=== PATIENT | male | born 1985 | race African-American/Black ===

== ENCOUNTER 2022-12-10 02:53 | Outpatient (CLI) | payer SELFPAY | END 2022-12-10 02:54 | disposition home or self-care (01) | PROVIDERS: Visit Provider Internal Medicine | DX: R41.82 Altered mental status, unspecified (principal) ==

== ENCOUNTER 2023-09-10 02:09 | Outpatient (CLI) | payer OTHER, SELFPAY | END 2023-09-10 02:10 | disposition home or self-care (01) | LOC: AMB 09-22 02:14 | PROVIDERS: Visit Provider Family Medicine | DX: S01.512A Laceration without foreign body of oral cavity, initial encounter (principal); W19.XXXA Unspecified fall, initial encounter; Y92.9 Unspecified place or not applicable | CPT/HCPCS: A0425; A0429 ==

== ENCOUNTER 2023-09-10 02:25 | Emergency (ER) | payer OTHER, SELFPAY ==
[2023-09-10 02:27] VITALS: BP 119/77; PULSE 89; RESP 20; TEMP 36.7; O2SAT 99; BMI 22.5
--- NOTE | 2023-09-10 02:43 | ED_ITS ---
HPI - Wound/Laceration General Time Seen by Provider: 02:43 Date Seen: 09/10/23 Chief Complaint: Laceration/Wound Stated Complaint: fall, tongue lac Time Seen by Provider: 09/10/23 02:26 Source: patient and RN notes reviewed Mode of arrival: EMS Limitations: no limitations History of Present Illness HPI narrative: Patient is noted to have arrived by EMS with complaints of a tongue laceration. Patient was noted according to EMS to have fallen down while visiting his brother at [facility]. He is from [place]. He notes when he fell he bit his tongue. They are describing a large flap laceration on the left side of his tongue. They did not note any airway compromise. He has not had any vomiting. Denies loss of consciousness. When I meet patient he is obviously intoxicated and is preferring to show me his to tongue which is lacerated on the middle aspect on the left. We are having some challenges with communication given that he is predominantly a Somalian language speaker. He is following commands however. He is adamant that this just occurred this evening. He denies any other pain at this time. Really does not want anything else done except repair of his tongue. Related Data Home Medications Medication Instructions Recorded Confirmed No Known Home Medications 09/10/23 09/10/23 Allergies Allergy/AdvReac Type Severity Reaction Status Date / Time No Known Drug Allergies Allergy Verified 09/10/23 02:30 Review of Systems Status of ROS: Reports: unobtainable due to mental status Narrative: Any questions that I ask he seems very frustrated and just sticks his tongue out at me to show me the laceration. He eventually denies neck pain or head pain and moves his head around without difficulty. Unable to tell me how much she has had tonight except for ?a little beer and ?. Denies any medical problems. [facility] Medical History No significant past medical history Surgical History No significant past surgical history Social History Smoking Status: Current every day smoker Second hand tobacco smoke exposure: Yes How often do you have a drink containing alcohol: monthly or less AUDIT-C Alcohol total score: 1 Non-prescribed substance use: denies use Exam Narrative: Exam Narrative: Patient is awake and pleasant. Following commands. Airway appears to be clear. Pupils are sluggish to light. Head is with a a small area of possible edema on left forehead. No step-offs palpated palpation of cervical spine without any midline tenderness on range of motion is full. Palpation of jaw as well out discomfort. Oral cavity does show a large flap of the tongue that head is through and through on the left mid tongue. It is measuring approximately 2 cm. Heart with regular rate and rhythm and lungs are clear. Moving all extremities. Prefers to sleep with the sheet over his head. Falls asleep quite easily. Const: Vital Signs, click to edit/add: Vital Signs - 24 hr 09/10/23 02:27 09/10/23 03:00 09/10/23 05:34 Temperature 98.0 F 98.0 F Pulse Rate [Right Pulse Oximeter] 89 84 Respiratory Rate 20 20 Blood Pressure [Ri ght Upper Arm] 119/77 121/74 Pulse Oximetry 99 98 98 Oxygen Delivery Me thod Room Air Room Air Oxygen Flow Rate 09/10/23 06:18 Temperature Pulse Rate [Right Pulse Oximeter] Respiratory Rate Blood Pressure [Ri ght Upper Arm] Pulse Oximetry 99 Oxygen Delivery Me thod Nasal Cannula Oxygen Flow Rate 2 Documenting provider has reviewed patient's vital signs: yes Course Course ED Course: At this time patient is presenting after a fall. Clearly he is intoxicated. He really does not want any further studies done but we were able to get Vincent to do CT of the head and neck. Given the location of the laceration of the tongue and the fact that this wound does not come easily together we will half to suture this area. Patient is in agreement with that. Vital Signs Vital signs: Initial Vital Signs Temperature 98.0 F 09/10/23 02:27 Temperature Source Temporal Artery Scan 09/10/23 02:27 Pulse Rate 89 09/10/23 02:27 Respiratory Rate 20 09/10/23 02:27 Blood Pressure 119/77 09/10/23 02:27 Blood Pressure Mean 91 09/10/23 02:27 Blood Pressure Position Sitting 09/10/23 02:27 Pulse Oximetry 99 09/10/23 02:27 Oxygen Delivery Method Room Air 09/10/23 02:27 Vital Signs Temperature 98.0 F 09/10/23 02:27 Pulse Rate 89 09/10/23 02:27 Respiratory Rate 20 09/10/23 02:27 Blood Pressure 119/77 09/10/23 02:27 Pulse Oximetry 99 09/10/23 02:27 Oxygen Delivery Method Room Air 09/10/23 02:27 Temperature 98.0 F 09/10/23 05:34 Pulse Rate 88 09/10/23 08:49 Respiratory Rate 18 09/10/23 08:49 Blood Pressure 121/74 09/10/23 05:34 Pulse Oximetry 92 09/10/23 08:49 Oxygen Delivery Method Room Air 09/10/23 08:49 Oxygen Flow Rate 2 09/10/23 06:18 Medications Administered Medications: Discontinued Medications Generic Name Dose Route Start Last Admin Trade Name Freq PRN Reason Stop Dose Admin Sodium Chloride 1,000 mls @ 1,000 mls/hr 09/10/23 04:33 09/10/23 06:13 0.9 % Sodium Chloride 1000 Ml IV 09/10/23 05:32 Infused .Q1H TAMICA Infusion Lidocaine HCl 20 ml 09/10/23 02:45 09/10/23 04:00 Lidocaine Hcl 2 % Multidose 20 Ml Vial INJECTION 09/10/23 02:46 20 ml ONCE ONE Administration MDM - Wound/Laceration MDM Narrative Medical decision making narrative: 1. Tongue laceration-patient fell and bit his tongue. He is adamant that it was tonight. It was not bleeding upon initial look and thus I was worried that this may have been older than 24 hours. He again is adamant that this happened this evening. We were able to anesthetize his tongue and 4 sutures were placed of 4- 0 Vicryl with moderate wound approximation. The wound edges were quite may serrated. Patient will need to follow-up with ENT given the severity of this laceration. 2. Alcohol intoxication-ETOH comes back at 2.24. Given the fact that he has an oral injury and is intoxicated I do feel the best he has sleepier in the ER where we can monitor mow overnight. He is in agreement with this. 3. Fall-patient does have soft tissue swelling on his left forehead but fortunately head CT cervical spine CT without evidence of acute injury. 4. Disposition- patient has clip soundly through the night. Did have to apply oxygen as his O2 sats did drop to 85% while sleeping. Otherwise did re-examine him overnight and there is no bleeding from the laceration. Will have patient have breakfast. Advised only soft foods and liquids for at least 3 days. Medical Records Medical records narrative: No records available Lab Data Attestation: I reviewed the patient's lab results. Labs: Lab Results 09/10/23 Range/Units 04:30 WBC 7.23 (4.50-11.00) K/uL RBC 4.57 (4.30-5.90) m/uL Hgb 14.9 (13.5-17.5) gm/dL Hct 44.0 (37.0-53.0) % MCV 96 (80-100) fL MCH 33 (26-34) pg MCHC 34 (32-36) gm/dL RDW Coeff of Lopez 14.1 (11.5-15.5) % Plt Count 148 (140-440) K/uL Neut % (Auto) 62.8 (42.0-72.0) % Lymph % (Auto) 28.2 (20-44) % [place] % (Auto) 6.4 (0.0-11.0) % Eos % (Auto) 2.1 (0.0-7.0) % Baso % (Auto) 0.4 (0.0-3.0) % Neut # (Auto) 4.54 (1.7-7.0) K/uL Lymph # (Auto) 2.04 (0.90-2.90) K/uL [place] # (Auto) 0.50 (0.00-0.90) K/UL Eos # (Auto) 0.15 (0.00-0.50) K/uL Baso # (Auto) 0.03 (0.00-0.30) K/uL Abs Immat Gran (auto) 0.01 (0.00-0.30) K/uL Imm/Tot Granulo (auto) 0.1 % Sodium 138 (135-149) mmol/L Potassium 3.3 L (3.6-5.1) mmol/L Chloride 104 (96-114) mmol/L Carbon Dioxide 23 (20-32) mmol/L Anion Gap 11 (7-15) mEq/L BUN 7 (5-24) mg/dL Creatinine 0.7 (0.5-1.5) mg/dL Estimated Creat Clear 159.07 Estimated GFR 120 ml/min Glucose 112 (60-115) mg/dL Calcium 8.5 (8.4-10.6) mg/dL Magnesium 2.0 (1.5-2.6) mg/dL Ethyl Alcohol 0.25 H (0.01-0.03) % Imaging Data CT scan - head: Attestation: I have reviewed the pertinent imaging results. Radiologist's impression: Cardiovascular and mediastinum: Mildly enlarged cardiac silhouette, possibly accentuated by portable technique. Left-sided cardiac conduction device. Lungs and pleural spaces: Lungs are clear. No sign of infiltrate or mass. No sign of pleural effusion. No pneumothorax. Bones and soft tissues: No significant findings. IMPRESSION: No acute pulmonary process. Cervical spine CT: Attestation: I have reviewed the pertinent imaging results. Radiologist's impression: ertebrae: Alignment is normal. There are no fractures or suspicious bony lesions. Discs and facet joints: Multilevel disc degeneration and C4-C5, C5-C6 and C6-C7 anterior discal ossification at C4-C5 and C5-C6. Mild bilateral multilevel articular pillar osteoarthrosis. Extraspinal findings: Prevertebral soft tissues, visualized airway, and visualized lungs are without significant incidental findings. Biapical pleural-parenchymal fibrosis is noted incidentally. IMPRESSION: No acute traumatic injury is identified. Discharge Plan Discharge Clinical Impression: Laceration Alcohol intoxication Qualifiers: Complication of substance-induced condition: uncomplicated Qualified Code(s): F10.920 - Alcohol use, unspecified with intoxication, uncomplicated Patient Disposition: Home, Self-Care Condition: Improved Additional Instructions: You will need to follow-up with ENT-a special Dr. Devoted to the ears nose and throat. He will need to recheck the tongue to ensure that it is healing well. Soft foods and liquids only for the next 3 days.. Avoid chewing so as to protect your tongue. Seek medical attention for fever, worsening symptoms and as needed. After eating or drinking rinse mouth with water. Prescriptions: No Action No Known Home Medications Follow Up/Referrals: Provider,Not a Local [Primary Care Provider] - Stand Alone Forms: [facility] Info Instructions Procedures Laceration Laceration 1: Pre procedure diagnosis: Tongue laceration Post procedure diagnosis: Tongue laceration suture Verification/time out: correct patient and correct site Name of person performing procedure: Shelby Liz Site: other (Tongue) Side (If applicable): left Size (cm): 2 Description: irregular Depth: simple, single layer Local Anesthetic: lidocaine 2% Amount of anesthesia used (mL): 1.5 Pre-repair: wound explored Skin layer closed with: Vicryl Size (cm): 4-0 Number of sutures: 4 Technique: simple, interrupted Conclusion: patient tolerated procedure
--- NOTE | 2023-09-10 02:54 | CRLHL7_ITS ---
For Patients: As a result of the Cures Act, medical imaging exams and procedure reports are released immediately into your electronic medical record. You may view this report before your referring provider. If you have questions, please contact your health care provider. INDICATION: Fall. TECHNIQUE: CT cervical spine without contrast. COMPARISON: None. FINDINGS: Vertebrae: Alignment is normal. There are no fractures or suspicious bony lesions. Discs and facet joints: Multilevel disc degeneration and C4-C5, C5-C6 and C6-C7 anterior discal ossification at C4-C5 and C5-C6. Mild bilateral multilevel articular pillar osteoarthrosis. Extraspinal findings: Prevertebral soft tissues, visualized airway, and visualized lungs are without significant incidental findings. Biapical pleural-parenchymal fibrosis is noted incidentally. IMPRESSION: No acute traumatic injury is identified. Please note that all CT scans at this facility use dose modulation, iterative reconstruction, and/or weight-based dosing when appropriate to reduce radiation dose to as low as reasonably achievable. Dictated by Antoni Vargas MD @ 09/10/2023 4:09:48 AM (Electronically Signed)
--- NOTE | 2023-09-10 02:54 | CRLHL7_ITS ---
For Patients: As a result of the Century Cures Act, medical imaging exams and procedure reports are released immediately into your electronic medical record. You may view this report before your referring provider. If you have questions, please contact your health care provider. INDICATION: REASON FOR EXAM: FALL, ETOH, BITE TONGUE. (sic) TECHNIQUE: CT head without contrast. COMPARISON: None. FINDINGS: CSF spaces: Within normal limits for age. Brain parenchyma and extra-axial spaces: The rodriguez-white differentiation is normal. No sign of mass, hemorrhage, or midline shift. No extra-axial fluid collection. Skull base and calvarium: The visualized paranasal sinuses and mastoid air cells demonstrate no acute or significant findings. Mild right frontal sinus, including frontal recess, and bilateral maxillary sinus mucosal thickening. The visualized orbits are grossly unremarkable. Focal soft tissue swelling overlying the right frontal calvarium. No skull fracture. IMPRESSION: Right frontal scalp focal soft tissue swelling. No underlying fracture. No intracranial hemorrhage or other acute injury. Please note that all CT scans at this facility use dose modulation, iterative reconstruction, and/or weight-based dosing when appropriate to reduce radiation dose to as low as reasonably achievable. Dictated by Antoni Vargas MD @ 09/10/2023 4:04:09 AM (Electronically Signed)
[2023-09-10 03:00] VITALS: O2SAT 98
--- OUTSIDE RECORDS SUMMARY | 2023-09-10 03:23 | XMS_ITS | Patient Health Record ---
Author Name Unknown Organization [facility] nter Address [address] [place] [address] Care Team Providers Care Adolescent Specialist Name Role Phone Ryan Subramanian Unavailable [phone] Liam Craig Unavailable [phone] ALLERGIES No Known Allergies REASON FOR REFERRAL No Information MEDICATIONS Medication SIG (Take, Route, Fr equency, Duration) Notes Start Date End Date Status Sertraline HCl 50 MG 1 tablet Orally Onc e a day for 30 days 01/19/2023 Active Melatonin 5 MG 1 tablet in the even ing Orally Once a day for 30 days 01/19/2023 Active Sertraline HCl 100 MG 1 tablet Orally On ce a day for 30 days 02/03/2023 Active SOCIAL HISTORY Tobacco Use: Social History Observation Description Date Details (start date - stop date) Current Smoker NA - NA Sex Assigned At : Social History Observation Description Sex Assigned At Unknown Tobacco Use/Smoking Question Answer Notes Tobacco use: current every day smoker Additional Findings: Tobacco User Chain smoker PROBLEMS Problem Type ICD Code Onset Dates Problem Status W/U Status Risk SNOMED Code Notes Problem Alcohol abuse with intoxication, uncomplicated (F10.120) Active confirmed Alcohol intoxication (69980003) VITAL SIGNS Heart Rate 88 /min 02/03/2023 Temperature 99.0 degrees Fahrenheit 02/03/2023 Respiratory Rate 20 /min 02/03/2023 Oximetry 99 % 02/03/2023 Height-cm 187.96 cm 02/03/2023 Blood pressure diastolic 90 mm Hg 02/03/2023 Weight-kg 80.74 kg 02/03/2023 Height 6'2 in 02/03/2023 Blood pressure systolic 137 mm Hg 02/03/2023 Weight 178 lbs 02/03/2023 BMI 22.85 kg/m2 02/03/2023 Encounters Encounter Location Date Provider Diagnosis [address] [address] 03/06/2023 Liam Craig [address] [address] 01/19/2023 Ryan Subramanian Depression determine d by examination F32.A and Insomnia, unspecified type G47.[address] [address] 02/03/2023 Ryanarie Subramanian Severe episode of recurrent major depressive disorder, without psychotic features F33.2 ASSESSMENTS Encounter Date Diagnosis Assessment Notes Treatment Notes Treatment Clinical Notes 01/19/2023 Insomnia, unspecified type (ICD-10 - G47.00) 01/19/2023 Depression determined by examination (ICD-10 - F32.A) 02/03/2023 Severe episode of recurrent major depressive disorder, without psychotic features (ICD-10 - F33.2) Preventing Depression From Coming Back: Care Instructions material was printed, Learning About Depression material was printed PLAN OF TREATMENT No Information Insurance Providers Payer Name Payer Address Payer Phone Subscriber Number Group Number Insured Name Patient Relationship to Insured Coverage Start Date Coverage End Date [employer] [place] [employer] [address] [address] [place], [place] [id number] Dixie Smith Self - patient is the insured MEDICAL (GENERAL) HISTORY Medical History History ICD Code Alcohol abuse with intoxication, uncompl icated F10.120 Trauma insomnia Surgical History Surgery Date(Month/Year) R leg fixation/Fx repair Hospitalization History Reason Date(Month/Year) inpatient psych 2013
[2023-09-10] MEDS: lidocaine HCL 2 % MULTIDOSE 20 ML VIAL INJECTION (04:00)
[2023-09-10] MEDS: 0.9 % SODIUM CHLORIDE 1000 ml 1,000 ML IV (04:46)
[2023-09-10 04:47] LABS: Basophils Absolute Auto 0.03 K/uL (0.00-0.30); Basophils Percent Auto 0.4 % (0.0-3.0); Eosinophils Absolute Auto 0.15 K/uL (0.00-0.50); Eosinophils Percent Auto 2.1 % (0.0-7.0); Hemoglobin* 14.9 gm/dL (13.5-17.5); Immature Granulocytes Abs Auto 0.01 K/uL (0.00-0.30); Immature Granulocytes Pct Auto 0.1 %; Lymphocytes Absolute Auto 2.04 K/uL (0.90-2.90); Lymphocytes Percent Auto 28.2 % (20-44); Mean Corpuscular HGB Conc 34 gm/dL (32-36); Mean Corpuscular Hemoglobin 33 pg (26-34); Mean Corpuscular Volume 96 fL (80-100); Monocytes Percent Auto 6.4 % (0.0-11.0); Neutrophils Absolute Auto 4.54 K/uL (1.7-7.0); Neutrophils Percent Auto 62.8 % (42.0-72.0); Platelet Count* 148 K/uL (140-440); RDW Coefficient of Variation % 14.1 % (11.5-15.5); Red Blood Count 4.57 m/uL (4.30-5.90); White Blood Count* 7.23 K/uL (4.50-11.00)
[2023-09-10 04:48] LABS: Slide Review Reflex No
[2023-09-10 04:59] LABS: Chloride* 104 mmol/L (96-114); Potassium* 3.3 mmol/L (3.6-5.1); Sodium* 138 mmol/L (135-149)
[2023-09-10 05:02] LABS: Anion Gap 11 mEq/L (7-15); Blood Urea Nitrogen* 7 mg/dL (5-24); Carbon Dioxide* 23 mmol/L (20-32); Creatinine* 0.7 mg/dL (0.5-1.5); Est. Creatinine Clearance* 159.07; Estimated Glomerular Filt Rate 120 ml/min; Ethanol* 0.25 % (0.01-0.03)
[2023-09-10 05:03] LABS: Calcium* 8.5 mg/dL (8.4-10.6); Glucose* 112 mg/dL (60-115)
[2023-09-10 05:34] VITALS: BP 121/74; PULSE 84; RESP 20; TEMP 36.7; O2SAT 98
[2023-09-10 06:18] VITALS: O2SAT 99
--- NOTE | 2023-09-10 06:20 | ED.NURSE ---
sutures intact on tongue. no bleeding noted. will continue to monitor. vitals stable.
--- NOTE | 2023-09-10 08:37 | ED.NURSE ---
sitting up in bed, eating soft food breakfast tray
[2023-09-10 08:49] VITALS: PULSE 88; RESP 18; O2SAT 92
--- NOTE | 2023-09-10 08:50 | ED.NURSE ---
home via cab. alert and oriented
== END 2023-09-10 09:06 | disposition home or self-care (01) ==
PROVIDERS: Emergency Provider Family Medicine
DX: S01.512A Laceration without foreign body of oral cavity, initial encounter (principal); W01.0XXA Fall on same level from slipping, tripping and stumbling without subsequent striking against object, initial encounter; F10.129 Alcohol abuse with intoxication, unspecified
CPT/HCPCS: 12011; 36415; 70450; 72125; 80048; 82077; 83735; 85025; 94761; 99284; J7030

== ENCOUNTER 2023-10-06 13:50 | Outpatient (CLI) | payer OTHER, SELFPAY ==
--- OUTSIDE RECORDS SUMMARY | 2023-10-19 17:28 | XMS_ITS | Encounter Summary ---
Author Name Unknown Organization [facility] Address [address] [facility] [place] [address] Phone Care Team Providers Care Maturity Checker Name Role Phone Pcp, No Primary Care Provider Unavailabl e Encounter Details Date Type Department Care Team Description 10/05/2023 Orders Only Unspecified Department [place] Unknown, Provider Social History Tobacco Use Types Packs/Day Years Used Date Smoking Tobacco: Never Assessed Cigarettes 0.5 Started: 1984 Smokeless Tobacco: Current Alcohol Use Standard Drinks/Week Comments Yes 3.3 (1 standard drink = 0.6 oz p ure alcohol) Sex and Gender Information Value Date Recorded Sex Assigned at Not on file Gender Identity Not on file Sexual Orientation Not on file COVID-19 Exposure Response Date Recorded In the last 10 days, have yo u been in contact with someone who was confirmed or suspected to have Coronavirus/COVID-19? No / Unsure 10/04/2023 6:06 AM EPIC STORK SPECIALISTS documented as of this encounter Plan of Treatment Upcoming Encounters Date Type Department Care Team Description 10/26/2023 10:40 AM EPIC STORK SPECIALISTS Office [facility] [address] [place] [address] Fina Shultz MD [address] [place], [place] [address] Hvac Engineer, [facility] [place] Scheduled Discharge Disposition: Discharged to home or self care (routine discharge) 10/31/2023 12:00 PM EPIC STORK SPECIALISTS Appointment [facility] [address] [facility] [address] [place], [place] [id number] 1, Eeg - Outpatient 2, Isd-[place] [address] [place] [address] Scheduled Discharge Disposition: Discharged to home or self care (routine discharge) documented as of this encounter Procedures Procedure Name Priority Date/Time Associated Diagnosis Comments TELEMETRY STRIPS 10/05/2023 8:44 AM [facility] documented in this encounter Results * TELEMETRY STRIPS (10/05/2023 8:44 AM [facility]ISTS) Narrative 10/05/2023 8:44 AM [facility] Ordered by an unspecified provider. Provider Unknown RAD ECHO documented in this encounter Visit Diagnoses Not on filedocumented in this encounter Care Teams Maturity Checker Relationship Specialty Start Date End Date Pcp, No [facility] [place] [address] PCP - General 08/31/14 documented as of this encounter
--- OUTSIDE RECORDS SUMMARY | 2023-10-19 17:28 | XMS_ITS | Encounter Summary ---
Author Name Unknown Organization [facility] Address [address] [facility] [place] [address] Phone Care Team Providers Care Furniture Arranger Name Role Phone Pcp, No Primary Care [...] Coronavirus/COVID-19? No / Unsure 10/04/2023 6:06 AM ROUTE SALES DELIVERY DRIVER documented as of this encounter Plan of Treatment Upcoming Encounters Date Type Department Care Team Description 10/26/2023 10:40 AM ROUTE SALES DELIVERY DRIVER Office Visit [facility] [address] [place] [address] Fina Shultz MD [address] [place], [place] [address] Dag Coater, [facility] [place] Scheduled Discharge Disposition: Discharged to home or self care (routine discharge) 10/31/2023 12:00 PM ROUTE SALES DELIVERY DRIVER [place] [facility] [place] [address] [facility] [address] [place], [place] [id number] 1, Eeg - Outpatient 2, Isd-[place] [address] [place] [address] Scheduled Discharge Disposition: Discharged to home or self care (routine discharge) documented as of this encounter Procedures Procedure Name Priority Date/Time Associated Diagnosis Comments TELEMETRY STRIPS 10/05/2023 3:39 AM ROUTE SALES DELIVERY DRIVER documented in this encounter Results * TELEMETRY STRIPS (10/05/2023 3:39 AM ROUTE SALES DELIVERY DRIVER) Narrative 10/05/2023 3:39 AM ROUTE SALES DELIVERY DRIVER Ordered by an unspecified provider. Provider Unknown RAD ECHO documented in this encounter Visit Diagnoses Not on filedocumented in this encounter Care Teams Furniture Arranger Relationship Specialty Start Date End Date Pcp, [place] [address] PCP - General 08/31/14 documented as of this encounter
--- OUTSIDE RECORDS SUMMARY | 2023-10-19 17:28 | XMS_ITS | Encounter Summary ---
Author Name Unknown Organization [facility] Address [address] [facility] [place] [address] Phone Care Team Providers Care Laborer Concrete Paving Name Role Phone Pcp, No Primary Care [...] Coronavirus/COVID-19? No / Unsure 10/04/2023 6:06 AM SKIN LIFTER BACON documented as of this encounter Plan of Treatment Upcoming Encounters Date Type Department Care Team Description 10/26/2023 10:40 AM SKIN LIFTER BACON Office Visit [facility] [address] [place] [address] Fina Shultz MD [address] [place], [place] [address] Post Hole Digger, [facility] Citizen Of [place] Scheduled Discharge Disposition: Discharged to home or self care (routine discharge) 10/31/2023 12:00 PM SKIN LIFTER BACON Appointment [facility] [address] [facility] [address] [place], [place] [id number] 1, Eeg - Outpatient 2, Isd-Citizen [place] [address] [place] [address] Scheduled Discharge Disposition: Discharged to home or self care (routine discharge) documented as of this encounter Procedures Procedure Name Priority Date/Time Associated Diagnosis Comments TELEMETRY STRIPS 10/05/2023 5:02 AM SKIN LIFTER BACON documented in this encounter Results * TELEMETRY STRIPS (10/05/2023 5:02 AM SKIN LIFTER BACON) Narrative 10/05/2023 5:02 AM SKIN LIFTER BACON Ordered by an unspecified provider. Provider Unknown RAD ECHO documented in this encounter Visit Diagnoses Not on filedocumented in this encounter Care Teams Laborer Concrete Paving Relationship Specialty Start Date End Date Pcp, [place] [address] PCP - General 08/31/14 documented as of this encounter
--- OUTSIDE RECORDS SUMMARY | 2023-10-19 17:28 | XMS_ITS | Encounter Summary ---
Author Name Unknown Organization [facility] Address [address] [facility] [address] Phone Care Team Providers Care Machine Stemmer Name Role Phone Pcp, No Primary Care Provider Unavailabl e Encounter Details Date Type Department Care Team Description 10/04/2023 Orders Only Unspecified Department [place] Unknown, Provider [...] Coronavirus/COVID-19? No / Unsure 10/04/2023 6:06 AM RICE DRYER MECHANIC documented as of this encounter Plan of Treatment Upcoming Encounters Date Type Department Care Team Description 10/26/2023 10:40 AM RICE DRYER MECHANIC Office Visit [facility] [address] [place] [address] Fina Shultz MD [address] [place], [place] [address] Patient Biller, [facility] Maldivian Scheduled Discharge Disposition: Discharged to home or self care (routine discharge) 10/31/2023 12:00 PM RICE DRYER MECHANIC Appointment [facility] [address] [facility] [address] [place], [place] [id number] 1, Eeg - Outpatient 2, Isd-[place] [address] [place] [address] Scheduled Discharge Disposition: Discharged to home or self care (routine discharge) documented as of this encounter Procedures Procedure Name Priority Date/Time Associated Diagnosis Comments TELEMETRY STRIPS 10/04/2023 9:30 PM RICE DRYER MECHANIC documented in this encounter Results * TELEMETRY STRIPS (10/04/2023 9:30 PM RICE DRYER MECHANIC) Narrative 10/04/2023 9:30 PM RICE DRYER MECHANIC Ordered by an unspecified provider. Provider Unknown RAD ECHO documented in this encounter Visit Diagnoses Not on filedocumented in this encounter Additional Health Concerns Infection Onset Date Last Indicated Resolved Time SARS-CoV-2 Rule-Out 10/04/2023 10/04/2023 10/04/20 7:15 AM RICE DRYER MECHANIC documented as of this encounter Care Teams Machine Stemmer Relationship Specialty Start Date End Date Pcp, No [place] [address] PCP - General 08/31/14 documented as of this encounter
--- OUTSIDE RECORDS SUMMARY | 2023-10-19 17:28 | XMS_ITS | Encounter Summary ---
Author Name Unknown Organization [facility] Address [address] [facility] [place] [address] Phone Care Team Providers Care Blanket Cutter Hand Name Role Phone Pcp, No Primary Care [...] Coronavirus/COVID-19? No / Unsure 10/04/2023 6:06 AM COMPLIANCE ENGINEER PRODUCTS documented as of this encounter Plan of Treatment Upcoming Encounters Date Type Department Care Team Description 10/26/2023 10:40 AM COMPLIANCE ENGINEER PRODUCTS Office Visit [facility] [address] [place] [address] Fina Shultz MD [address] [place], [place] [address] Inspector Outside Steam Distribution, [facility] [place]iqu[place] Scheduled Discharge Disposition: Discharged to home or self care (routine discharge) 10/31/2023 12:00 PM COMPLIANCE ENGINEER PRODUCTS Appointment [facility] [address] [facility] [address] [place], [place] [phone] 1, Eeg - Outpatient 2, Isd-[place]iqu[place] [address] [place] [address] Scheduled Discharge Disposition: Discharged to home or self care (routine discharge) documented as of this encounter Procedures Procedure Name Priority Date/Time Associated Diagnosis Comments TELEMETRY STRIPS 10/05/2023 8:07 AM COMPLIANCE ENGINEER PRODUCTS documented in this encounter Results * TELEMETRY STRIPS (10/05/2023 8:07 AM COMPLIANCE ENGINEER PRODUCTS) Narrative 10/05/2023 8:07 AM COMPLIANCE ENGINEER PRODUCTS Ordered by an unspecified provider. Provider Unknown RAD ECHO documented in this encounter Visit Diagnoses Not on filedocumented in this encounter Care Teams Blanket Cutter Hand Relationship Specialty Start Date End Date Pcp, [place] [address] PCP - General 08/31/14 documented as of this encounter
--- OUTSIDE RECORDS SUMMARY | 2023-10-19 17:28 | XMS_ITS | Encounter Summary ---
Author Name Unknown Organization [facility] Address [address] [facility] [place] [address] Phone Care Team Providers Care Field Automobile Adjuster Name Role Phone Pcp, No Primary Care [...] Coronavirus/COVID-19? No / Unsure 10/04/2023 6:06 AM SPECIAL WARFARE BOAT OPERATOR documented as of this encounter Plan of Treatment Upcoming Encounters Date Type Department Care Team Description 10/26/2023 10:40 AM SPECIAL WARFARE BOAT OPERATOR Office Visit [facility] [address] [place] [address] Fina Shultz MD [address] [place], [place] [address] Shipping Assistant, [facility] [place] Scheduled Discharge Disposition: Discharged to home or self care (routine discharge) 10/31/2023 12:00 PM SPECIAL WARFARE BOAT OPERATOR Appointment [facility] [address] [facility] [address] [place], [place] [phone] 1, Eeg - Outpatient 2, Isd-[place] [address] [place] [address] Scheduled Discharge Disposition: Discharged to home or self care (routine discharge) documented as of this encounter Procedures Procedure Name Priority Date/Time Associated Diagnosis Comments TELEMETRY STRIPS 10/05/2023 10:3 2 AM SPECIAL WARFARE BOAT OPERATOR documented in this encounter Results * TELEMETRY STRIPS (10/05/2023 10:32 AM SPECIAL WARFARE BOAT OPERATOR) Narrative 10/05/2023 10:32 AM SPECIAL WARFARE BOAT OPERATOR Ordered by an unspecified provider. Provider Unknown RAD ECHO documented in this encounter Visit Diagnoses Not on filedocumented in this encounter Care Teams Field Automobile Adjuster Relationship Specialty Start Date End Date Pcp, No [place] [address] PCP - General 08/31/14 documented as of this encounter
--- OUTSIDE RECORDS SUMMARY | 2023-10-19 17:28 | XMS_ITS | Encounter Summary ---
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 tested for STD STI including HIV 6 months ago. Not sexually active since that time. Patient is unaware of in utero development history or any complications related to his . Past Medical History: has a past medical history of Positive QuantiFERON-TB Gold test (12/23/2013) (12/10/2013: 0.89) and Vitamin D deficiency (12/23/2013) (12/18/2013: 11.9; ergocalciferol prescribed). He has no past medical history of Breathing problem, CAD (coronary artery disease), Chronic kidney disease, Clotting disorder (), Diabetes mellitus (), Hypertension, Seizure disorder (), Stroke(), or Traumatic brain injury (). Surgical History: has a past surgical history that includes irrigation & debridement leg (Right, 2013) (Procedure: I&D LEG, ex-fix R leg. pilon fracture ; Laterality: Right; Surgeon: Julio Cesar Prasad MD; Service: Orthopedics); fixator application leg or foot (Right, 2013) (Procedure: FIXATOR APPLICATION LEG OR FOOT; Laterality: Right; Surgeon: Julio Cesar Prasad MD; Service: Orthopedics); orif pilon fracture (Right, 10/16/2013) (Procedure: Percutaneous fixation tibial plafond,possible adjustment of ex-fix; Laterality: Right; Surgeon: Julio Cesar Prasad MD; Service: Orthopedics); removal of hardware, fixator (Right, 12/04/2013) (Procedure: REMOVAL OF FIXATOR; Laterality: Right; Surgeon: Julio Cesar Prasad MD; Service: Orthopedics); im fernando tibia (Right, 12/04/2013) (Procedure: IM FERNANDO TIBIA; Laterality: Right; Surgeon: Julio Cesar Prasad MD; Service: Orthopedics); irrigation & debridement leg (Right, 12/04/2013) (Procedure: I&D LEG; Laterality: Right; Surgeon: Julio Cesar Prasad MD; Service: Orthopedics); mandible orif (Left, 05/30/2019) (Procedure: MANDIBLE ORIF, possible MMF, proceed as indicated; Laterality: Left; Surgeon: Arvin Pierce MD; Service: Otolaryngology); mandible orif (Left, 07/18/2019) (Procedure: MANDIBLE ORIF; Laterality: Left; Surgeon: Arvin Pierce MD; Service: Otolaryngology); and arch bar application mmf (N/A, 07/18/2019) (Proce dure: ARCH BAR APPLICATION MMF; Laterality: N/A; Surgeon: Arvin Pierce MD; Service: Otolaryngology). Allergies Allergen Reactions Unknown Unknown Medications: Current Facility-Administered Medications: thiamine (VITAMIN B1) 500 mg in 50mL NS IVPB, 500 mg, Intravenous, once NOW, Korin Gomez MD, 500 mg at 10/04/23 1034 No current outpatient medications on file. Social: Patient is currently homeless and resides on the [address] versus shelters. Drinks alcohol. Denies other drug use including IV drugs. Family History: No history of epilepsy that he can recall. Review of Systems: 10 points ROS reviewed and reported negative unless specified on the HPI or exam. General Physical Examination BP 143/75 (Cuff Location: Left Arm, Patient Position: Lying Down) Pulse 95 Temp 36.7 ??C (98 ??F) (Oral) Resp 18 SpO2 97% General: patient lying in bed without any acute distress, blankets over her head attempting to sleep but rouses to voice and answers questions appropriately. Eyes: no conjunctival injection HENT: normocephalic/atraumatic, poor dental hygiene, no oral lesions, and no epistaxis Cardiovascular: RRR Respiratory: no respiratory distress GI: soft and nontender Extremities: peripheral pulses present and no edema Skin: no rashes or lesions Neurological Examination Mental Status Exam: awake and oriented to person, place and time and situation. Able to name every day objects and describe their functions, calculation intact to pocket change, follows complex commands, states days of the week forwards and backwards. Cranial Nerves: PERRL, EOMs intact, and mild horizontal nystagmus with rightward and leftward gaze.Muscles of facial expression intact, and symmetrical. Sensation of the face symmetrical. Motor: no drift in bilateral UE or LE's. Fine tremor with arms outstretched, unchanged by cocking of wrists >15 seconds. No focal weakness. Strength 5/5 bilateral upper and lower extremities. Sensory: Sensation to light touch intact throughout. Coordination: [id number] intact on left (deferred on right secondary to pain related to elbow contusion) and hrfa-[id number] intact bilaterally Reflexes: 2+ and symmetric in brachioradialis, patellar, and plantars downgoing bilaterally. No clonus. Gait: Assisted gait (holding both hands) unsteady feet hip width apart. Patient stumbled when unsupported en route back to bed. Images and test review by wa CT 09/25/23 Impression: 1. No acute intracranial pathology. 2. 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 Assessment and Plan Dixie Smith is a 37 y.o. male with EtOH use disorder who presented to the ED following a seizure. Unwitnessed episodes with loss of awareness and postictal confusion are concerning for seizure.Suspect provoked seizure in the context of patient's known right frontal encephalomalacia possibly related to previous TBI and current alcohol use disorder. Recent CTH 09/25 did not show any obvious mass or seizure foci. Vital signs and exam do not indicate acute withdrawals. Other seizure provoking factors including blood glucose on presentation and basic ED chemistry panel were unremarkable. Physical exam in the emergency department was significant for resting tremor in the upper extremities and gait instability. strong suspicion for provoked seizure in this patient. Recommend follow-up with outpatient MRI, EEG and start on an AED. Keppra 1g BID would be appropriate should the patient nothave a concomitant mood disorder. Recommend: - Serum Phos, Mg - Outpatient EEG & MRI - Follow up with neurology outpatient - Keppra 1g BID - EtOH cessation and follow up with addiction medicine - Patient is to refrain from driving and may only resume if he is seizure free for 3 months. Patient education provided 10/05/23 Patient discussed with neurology attending, Dr. Ruffin. Neurology will sign off. Miguel Rizo MD, 10/04/2023 12:52 PM FIC SIGNAL TECHNICIAN Associated attestation - Lavinia Ruffin MB [facility] CARLITO - 10/05/2023 9:50 PM TRAFFIC SIGNAL TECHNICIAN Attending Attestation: I discussed the patient with the neurology team today. I saw and examined the patient, used [place] judo teacher via phone. 37 y/o man with ethanol use disorder, multiple presentations to the ED, including ones recently with concern for seizures. Presented again with episode concerning for seizure. Reports active and frequent alcohol use. CTB with traumatic encephalomalacia. Seizures are definitelyprovoked by active alcohol use and I counseled the patient on quitting. Given encephalomalacia it is hard to tell if there is underlying epilepsy separate from the alcohol withdrawal seizures. Discussed seizure precautions and [place] driving law. Would cover with ASM with LEV, recommend outpatient neuro follow up with MRI/EEG which can be done as an outpatient. Neurology to signoff at this time. Feel free to call us back with questions or concerns. Lavinia Ruffin Neurologist [facility] Lavinia Ruffin MB [facility], 10/04/2023 8:25 PM documented in this encounter ED Notes * Korin Gomez MD - 10/04/2023 7:11 AM CST Images from the original note were not included. ED Provider Note Dixie Smith : 1985 Sex: male Patient Arrival Date and Time: 10/04/2023 1:35 AM HISTORY OF PRESENT ILLNESS: Patient is a 37-year-old with a history of alcohol use disorder who presents to the emergency department with a seizure. He reports that the seizure occurred last night at 10 PM. It was unwitnessed. He reports that he fell backwards and thinks he was doing some shaking movements. He then woke up onthe ground and reported feeling very dizzy and confused. He states that this has happened to him a couple of times in the last few weeks. He did not lose continence or bite his tongue. He does reportthat he bit his tongue during one of his previous episodes. Prior to that, he had never had a seizure in his life. He denies headache and neck pain. He has not had any cough, difficulty breathing, orchest pain. He denies abdominal pain, nausea, vomiting, diarrhea, and pain with urination. He is not currently sexually active. He endorses drinking about 1 day/week. When he drinks, he drinks half a bottle of liquor. He deniesany recreational drug use. He denies cigarette use. Meteorological Observer: Meteorological Observer present PHYSICAL EXAMINATION: BP 139/83 (Cuff Location: Left Arm, Patient Position: Lying Down) Pulse 83 Temp 36.7 ??C (98 ??F) (Oral) Resp 18 SpO2 98% Constitutional: Sleeping, wakes to voice HEENT: normocephalic, atraumatic. No conjunctival injection. Oral mucosa moist CV: Regular rate and rhythm, warm and well perfused. 2+ radial pulses bilaterally Pulm: Unlabored respiratory effort, breathing comfortably on room air GI: Soft, non-tender, non-distended. MSK: No deformities. No cyanosis. Freely moving all four extremities. Neuro: A&O, normal speech, following commands, grossly symmetric strength in all extremities. Faint tremor in bilateral upper extremities. No tongue fasciculations present. Pupils equally round and reactive. Cranial nerves grossly intact. Skin: warm & dry, no rashes or lesions MDM / ED COURSE: Dixie Smith is a 37 y.o. male who presents with seizure. Patient was seen and evaluated by myself upon arrival to the ED. Nursing notes were reviewed and multiple etiologies were considered. Dx, DDx, Assessment and Plan was discussed with Attending Emergency Medicine Physician. Initial differential diagnosis includes seizure disorder with medication noncompliance, intracranial mass/bleed, hypoglycemia, AIR REDUCTION EQUIPMENT OPERATOR infection or other infection lowering seizure threshold, ingestion, metabolic derangement, medication or alcohol withdrawal. Additionally, considered syncope, cardiac ar rhythmia, or migraine, however, history and examination consistent with seizure, as evidenced by reported seizure-like movements, post-ictal state. Given lack of seizure history, initial workup was broad and included chemistry, CBC, chem, EKG , ammonia, LFTs, urinalysis. Considered Utox, however with no history of ingestion, did not feel this would be useful. Considered head CT, however, patient had a head CT during his recent presentation on September 25. At that time, it was notable for chronic encephalomalacia, but no acute pathology to explain the seizure. Given no change in symptoms between that presentation and this one, did not feel that a repeat head CT would provide any clinically useful information. Chemistry grossly unremarkable. CBC notable for mild anemia, but otherwise within normal limits. LFTs were grossly unremarkable. Ammonia was normal. COVID and flu test were negative. Neurology was consulted given that patient has had multiple presentations for seizures within the last couple of weeks. Based on chart review, these were initially suspected to be due to alcohol withdrawal seizures, however, I have low suspicion for alcohol withdrawals at this time. Based on history, patient does not drink regularly. Clinically, he does not appear to be in withdrawals. He has a faint upper extremity tremor bilaterally, that he reports has been here for 2 months. He does not have any tongue fasciculations or altered mental status on exam. His vitals are within normal limits, and he is not hypertensive or tachycardic. Overall, I have low suspicion for alcohol withdrawals as et iology of the patient's seizure disorder. Feel that he warrants further workup for new seizures. Neurology was consulted, and agree with plan for further workup. Did not feel that a repeat head CTwas necessary at this time. Recommended admission for EEG and MRI. Patient remained hemodynamically stable throughout their stay in the ED. Discussed with the patientthe plan for admission. The patient expressed understanding and agreement with the plan. Report wascalled to the admitting provider. Patient was transported to the floor without incident ADDENDUM: After patient had been transported to floor, neurology called back with updated final recommendations. At that time, felt that he was appropriate for outpatient follow-up. Neurology plan tocommunicate this with the inpatient team. Final Clinical Impression 1. Seizure () Korin Gomez MD, 10/04/2023 11:41 AM Emergency Medicine Resident Dictation Disclaimer: Some notes are completed with voice-recognition dictation software. As a result, there may be errors in the script that have gone undetected. Errors are generally corrected in real time. Please contact me via [employer] staff message if you note any errors requiring clarification. Problems Addressed 1 acute or chronic illness or injury that poses a threat to life or bodily function Data considered External notes reviewed and summarized, Tests Ordered, Additional tests considered but not ordered, Independent interpretation of studies, and Consultation obtained Risk of patient management Diagnosis or treatment significantly limited by social determinants of health and Decision regarding hospitalization ED Course as of 10/04/23 1139 MonOct 04, 2023 0925 Ammonia: 29 FIC SIGNAL TECHNICIAN * Lilly Singleton RN - 10/04/2023 6:04 AM CST Bed: B16 Expected date: Expected time: Means of arrival: Comments: T FIC SIGNAL TECHNICIAN * Lilly Gill RN - 10/04/2023 1:41 AM CST Patient c/o that he is out of his seizure medication. Also has some pain to his left face. No injury noted. FIC SIGNAL TECHNICIAN documented in this encounter Miscellaneous Notes * Nursing Assessment - Elisha Zapata RN - 10/05/2023 11:40 AM CST Nursing Assessment Head to Toe Head to Toe Assessment Shift Summary Shift Summary Neurologic/Cognitive Within Defined Limits HEENT Within Defined Limits Cardiac Within Defined Limits Respiratory Within defined limits Neurovascular Within Defined Limits Gastrointestinal Within Defined Limits Genitourinary Within Defined Limits Musculoskeletal Within Defined Limits Integumentary Within Defined Limits Patient Lines/Drains/Airways Status Active LDAs Name Placement date Placement time Site Days Peripheral IV 10/04/23 20 gauge Anterior;Right Forearm 10/04/23 1000 -- 1 Wound Mouth removal of hardware surgical procedural wound Inner;Left surgical wound 11/23/19 1104 -- 1412 Incision: Jaw Left;other (see comments) 11/23/19 1100 -- 1412 Psychosocial Within Defined Limits FIC SIGNAL TECHNICIAN * Interval Note Provider - Haley Rausch MD - 10/05/2023 10:36 AM TRAFFIC SIGNAL TECHNICIAN Brief Home RN Justification Note Referral to Home Health placed for the following disciplines: [facility] ordered to address medication teaching due to concerns with new seizure medicationsas evident by new diagnosis of seizures. Haley Rausch MD, 10/05/2023 10:36 AM FIC SIGNAL TECHNICIAN * Nursing Assessment - Elana Yoder RN - 10/05/2023 1:29 AM CST Nursing Assessment Head to Toe Head to Toe Assessment Shift Summary Shift Summary Aox4. Patient deniedn nausea and pain. Patient has one right forearm PIV. Patient is voiding adequately and has been scoring low on CIWAs. Patient denied any constipation. But BP is hyptensive but within MD parameters. Neurologic/Cognitive Neurologic/Cognitive HEENT HEENT Cardiac Assessment Within Defined Limits except for: Complaint Operator - bedside telemetry ECG Rhythm: sinus tachycardia Respiratory Respiratory Neurovascular Neurovascular Gastrointestinal Gastrointestinal Genitourinary Genitourinary Musculoskeletal Musculoskeletal Integumentary Integumentary Patient Lines/Drains/Airways Status Active LDAs Name Placement date Placement time Site Days Peripheral IV 10/04/23 20 gauge Anterior;Right Forearm 10/04/23 1000 -- less than 1 Wound Mouth removal of hardware surgical procedural wound Inner;Left surgical wound 11/23/19 1104 -- 1411 Incision: Jaw Left;other (see comments) 11/23/19 1100 -- 1411 Psychosocial Assessment Within Defined Limits except for: Psychosocial Assessment: Observed Patient Behaviors: Quiet/withdrawn and restless FIC SIGNAL TECHNICIAN * Nursing Assessment - Yessica Hale RN - 10/04/2023 6:06 PM CST Nursing Assessment Head to Toe Head to Toe Assessment Shift Summary Patient complained of mild pain on the left side where he fell. Controlled by tylenol. Seizure padsin place. Ambulated multiple times in hallway independently. Pt wants to be connected with social organization professor to see if he can get food stamps before discharge. Yessica Hale RN, 10/04/2023 6:11 PM Neurologic/Cognitive Within Defined Limits HEENT Assessment Within Defined Limits except for: Head/Face Symptoms: tenderness Comments: Left side pain Cardiac Within Defined Limits Complaint Operator - remote telemetry Respiratory Within defined limits Neurovascular Assessment Within Defined Limits except for: Comments: Pt described hands feeling like they were vibrating Gastrointestinal Within Defined Limits Genitourinary Within Defined Limits Musculoskeletal Within Defined Limits Integumentary Within Defined Limits Patient Lines/Drains/Airways Status Active LDAs Name Placement date Placement time Site Days Peripheral IV 10/04/23 20 gauge Anterior;Right Forearm 10/04/23 1000 -- less than 1 Wound Mouth removal of hardware surgical procedural wound Inner;Left surgical wound 11/23/19 1104 -- 1411 Incision: Jaw Left;other (see comments) 11/23/19 1100 -- 1411 Psychosocial Within Defined Limits FIC SIGNAL TECHNICIAN * ED Faculty Note - Minh Stephens MD - 10/04/2023 3:35 PM CST Images from the original note were not included. ED Faculty Attestation and Note Dixie Smith : 1985 Sex: male Patient Arrival Date and Time: 10/04/2023 1:35 AM FACULTY ATTESTATION I Minh Stephens MD, personally saw the patient, performed critical or larios portions of the service, and discussed the care with the resident MDM / ED Course Dixie Smith presented to the emergency department with question of seizure. This is a 37 y.o.male with a significant ethanol use history with a recent spate of presentations for seizures v tongue biting. Review of chart reveals no further history prior to this. Denies additional symptoms to me. Problems Addressed / DDx ??1 undiagnosed new problem with uncertain prognosis Data considered External notes reviewed and summarized, Tests Ordered, Additional tests considered but not ordered, and Consultation obtained Risk of patient management Decision regarding hospitalization BP 144/87 (Cuff Location: Left Arm) Pulse 95 Temp 36.9 ??C (98.4 ??F) (Oral) Resp 16 SpO2 97% GENERAL: Alert, NAD HEAD: Head and face atraumatic and normocephalic. EARS: External ears normal. NOSE: Anterior nares normal. EYES: PERRL, conjugate gaze OP - large healing laceration to the L side of the tongue. Else wnl. NECK: Supple and active range of motion of the neck preserved. CARDIOVASCULAR: Well-perfused peripherally. PULM: nonlabored respirations, no resp distress, speaking in complete sentences on room air GI: Abd nontender to palpation and nondistended MUSCULOSKELETAL: No peripheral edema and no obvious deformities SKIN: No rashes, diaphoresis or erythema noted NEURO: No gross focal deficits, alert and appropriately interactive. NUR PSYCH: Not assessed. MDM - ddx withdrawal seizures, meningoencephalitis, primary epileptiform disorder, others. This appears to be a new constellation of symptoms with new onset seizures. While he does drink, it doesn't appear that he has ever been worked up for seizures before. Will consult neuro, labs and CT images reviewed - prior CT (last week) with encephalomalacia, drawing in the possibility of a nidus for seizures. Ultimately neuro plans to have the patient admitted for further w/u. IMPRESSION 1. Seizure () Minh Stephens MD, 10/04/2023 3:35 PM FIC SIGNAL TECHNICIAN * Transfer - Yessica Hale RN - 10/04/2023 1:05 PM CST TRANSFER IN NOTE D: Patient transferred in to [facility] from ED at 1200. Patient condition on arrival: Complained of pain on left side of body. A&O X4 A: Settled patient in to new room: oriented to room, VS done, assessment done, and team notified of arrive in. Property sheet checked in by: RN. Transfer orders released.. R: P: Upon transfer, a Four [facility] Skin Inspection was completed with Bautista ALLEN. Skin injuries were not present, and skin breakdown needing further assessment will be added to [facility]. Will implement interventions from Skin INJURY Bundle as appropriate. Commence with cares per Care Plan and orders. Yessica Hale RN, 10/04/2023 1:06 PM FIC SIGNAL TECHNICIAN * Interval Note Provider - Magdaleno Arzate MD - 10/04/2023 11:25 AM TRAFFIC SIGNAL TECHNICIAN Handoff Communication Note for Hospital Admission Verbal handoff received from Danae in B. Patient Class: Inpatient Cardiac Monitoring: Not needed Brief summary of handoff from ED/Clinic Staff: Seizure at 10PM - unwitnessed. Woke up sleepy and confused. Prior sezures with ETOH as recently as 09/18. But these events seem to be less likely ETOH withdrawal, and more likely new epilepsy. Neurology consutled and will set up EEG. MRI pending. Some baseline tremor that is unlikely withdrawal. Vitals: 10/04/23 0242 10/04/23 0615 10/04/23 0920 10/04/23 1052 BP: 143/95 139/83 147/71 143/75 Cuff Location: Left Arm Left Arm Right Arm Left Arm Patient Position: Sitting Lying Down Lying Down Lying Down Pulse: 98 83 81 95 Resp: Temp: 36.6 ??C (97.9 ??F) 36.7 ??C (98 ??F) TempSrc: Oral Oral SpO2: 99% 98% 97% 97% Results for orders placed or performed during the hospital encounter of 10/04/23 (from the past 24 hour(s)) COVID/FLU COMBO Result Value Ref Range COVID-19 Not Detected Not Detected Flu A Not Detected Not Detected Flu B Not Detected Not Detected Narrative Must be MORNING SHOW HOST swab. COVID and Influenza testing can be completed on the same swab Sending tests other than COVID-19 and Influenza requires additional swab(s) Is the patient a healthcare employee: No Is the patient a [employer] [facility] Employee: No Date of symptom onset: 09/30/23 If eligible is the patient interested in medication for treatment of COVID disease: Yes ED CHEMISTRY LABS(NA,K,CL,CO2,GLU,CREAT,CA-IONIZED,ANION GAP) Result Value Ref Range Sodium 139 135 - 148 mEq/L Chloride 109 (H) 92 - 108 mEq/L AnGap 9 8 - 16 mEq/L Glucose 82 70 - 100 mg/dL ICA, Actual 4.27 (L) 4.40 - 5.20 mg/dL ICA, pH Corrected 4.29 (L) 4.40 - 5.20 mg/dL Creatinine 0.57 (L) 0.70 - 1.25 mg/dL BICARB 22 22 - 26 mEq/L eGFR (2020 CKD-EPI) >120 >=60 ml/min/1.73m2 Potassium 3.7 3.5 - 5.3 mEq/L CBC WITH PLTS/AUTO DIFF Result Value Ref Range WBC 6.39 4.00 - 10.00 k/cmm RBC 3.82 (L) 4.60 - 6.00 m/cmm Hgb 12.3 (L) 13.1 - 17.5 g/dL Hematocrit 36.8 (L) 40.0 - 51.0 % MCV 96.3 80.0 - 100.0 fL MCH 32.2 (H) 25.0 - 32.0 pg MCHC 33.4 31.0 - 36.0 g/dL RDW 14.0 11.5 - 14.5 % Plt 234 150 - 400 k/cmm MPV 9.9 6.5 - 12.5 fL Automated Abs Neutrophil 3.83 1.70 - 6.50 k/cmm Abs Immature Granulocyte 0.02 0.00 - 0.09 k/cmm Abs Neutrophil 3.83 1.70 - 6.50 k/cmm Abs Lymphocyte 1.68 0.80 - 4.00 k/cmm Abs Monocyte 0.64 0.20 - 1.00 k/cmm Abs Eosinophil 0.17 0.00 - 0.60 k/cmm Abs Basophil 0.05 0.00 - 0.20 k/cmm LACTATE (LACTIC ACID) Result Value Ref Range Lactate 1.3 0.7 - 2.1 mmol/L Narrative Send specimen on ice! PANEL HEPATIC FUNCTION Result Value Ref Range Total Protein 6.5 6.4 - 8.3 g/dL Albumin 4.0 3.8 - 5.1 g/dL Bili Total 0.6 <=1.2 mg/dL Bili Direct 0.2 <=0.3 mg/dL Alk Phos 83 40 - 129 IU/L ALT (SGPT) 29 <=41 IU/L AST(SGOT) 31 5 - 40 IU/L AMMONIA Result Value Ref Range Ammonia 29 16 - 60 mcmol/L Narrative Send specimen on ice! IP admit order will be placed in accordance with the patient class designation above. Please page the MOD Team via [employer] with clinical updates or status changes. Note is for documentation only and not for billing purposes. Magdaleno Arzate MD, 10/04/2023 11:25 AM FIC SIGNAL TECHNICIAN documented in this encounter Plan of Treatment Upcoming Encounters Date Type Department Care Team Description 10/26/2023 10:40 AM TRAFFIC SIGNAL TECHNICIAN Office Visit [facility] [address] [place], [place] [id number] Fina Shultz MD [address] [place] [address] Meteorological Observer, [facility] [place] Scheduled Discharge Disposition: Discharged to home or self care (routine discharge) 10/31/2023 12:00 PM TRAFFIC SIGNAL TECHNICIAN Appointment [facility] [place] Alisha Sandoval [address] [place] [address] 1, Eeg - Outpatient 2, Isd-Angolan [address] [place] [address] Scheduled Discharge Disposition: Discharged to home or self care (routine discharge) Scheduled Orders Name Type Priority Associated Diagnoses Orde r Schedule EEG EEG Routine Seizure () Expected: 10/12/2023, Expires: Scheduled Referrals Name Type Priority Associated Diagnoses Orde r Schedule REFERRAL TO NEUROLOGY Referral Routine Seizure () Ordered: 10/05/2023 REFERRAL TO HOME HEALTH SERVICES Referral Routine Seizure () Ordered: 10/05/2023 documented as of this encounter Procedures Procedure Name Priority Date/Time Associated Diagnosis Comments MR BRAIN W/O + WITH CONTRAST Routine 10/05/2023 9:44 AM TRAFFIC SIGNAL TECHNICIAN PC LAB COMPLETE UA STAT 10/04/2023 2: 34 PM TRAFFIC SIGNAL TECHNICIAN URINE DRUG SCREEN Routine 10/04/2023 2:3 0 PM TRAFFIC SIGNAL TECHNICIAN PC SYPHILIS SCREEN Routine 10/04/2023 10 :45 AM TRAFFIC SIGNAL TECHNICIAN ED EKG (12-LEAD) Routine 10/04/2023 8:38 AM TRAFFIC SIGNAL TECHNICIAN PC LAB B12 (CYANOCOBALMIN) Routine 10/04/2023 8:37 AM TRAFFIC SIGNAL TECHNICIAN PC ELECTROLYTES PANEL STAT 10/04/2023 8:37 AM TRAFFIC SIGNAL TECHNICIAN TC LAB BLOOD DRAW BY VENIPUNCTURE STAT 10/04/2023 8:37 AM TRAFFIC SIGNAL TECHNICIAN PC AMMONIA STAT 10/04/2023 8:37 AM TRAFFIC SIGNAL TECHNICIAN PANEL HEPATIC FUNCTION STAT 10/04/2023 8:37 AM TRAFFIC SIGNAL TECHNICIAN PC LACTATE (LACTIC ACID) STAT 10/04/2023 8:37 AM TRAFFIC SIGNAL TECHNICIAN COVID/FLU COMBO STAT 10/04/2023 6:50 AM TRAFFIC SIGNAL TECHNICIAN documented in this encounter Results * MR BRAIN W/O + WITH CONTRAST (10/05/2023 9:44 AM TRAFFIC SIGNAL TECHNICIAN) Anatomical Region Laterality Modality Skull Magnetic Resonan ce 10/05/2023 9:24 AM TRAFFIC SIGNAL TECHNICIAN Impressions 10/05/2023 10:39 AM TRAFFIC SIGNAL TECHNICIAN Impression: 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 No other seizure nidus identified. I have personally reviewed the image(s) and initial interpretation, and I agree with the findings as documented by the resident/fellow. Reading Radiologist: Deepak Harrington Reading Resident: Kem Pierce 10/05/2023 10:39 AM TRAFFIC SIGNAL TECHNICIAN Brain MRI without and with contrast Indication: Seizure, new-onset, no history of trauma ??. Comparison: ??CT head 09/25/2023 Technique: Sagittal T1-weighted, coronal T2-weighted, coronal inversion recovery, T1-weighted, axial diffusion-weighted and susceptibility-weighted, axial and coronal TurboFLAIR images were performed without intravenous contrast. Post intravenous contrast (using gadolinium) coronal and axial T1-weighted images were also obtained. Findings: The images reveal no mass lesions, midline shift, nor abnormal extraaxial fluid collections. The cerebral ventricles and sulci appear normal for age. The cerebral white matter and rodriguez matter appear normal for age. No abnormal restricted diffusion. Dedicated views of the medial temporal lobes are unremarkable. Normal intracranial major vascular flow voids are seen. Following the administration of contrast, no abnormal enhancement is detected. There are a few scattered T2 FLAIR hyperintense foci throughout the white matter. Multiple areas of encephalomalacia and underlying gliosis in the inferior right frontal lobe, right frontal operculum, lateral anterior right temporal lobe. Mucosal thickening in the right sphenoid locule. Orbits are unremarkable. Procedure Note Deepak Harrington MD - 10/05/2023 Brain MRI without and with contrast Indication: Seizure, new-onset, no history of trauma . Comparison: CT head 09/25/2023 Technique: Sagittal T1-weighted, coronal T2-weighted, coronal inversionrecovery, T1-weighted, axial diffusion-weighted andsusceptibility-weighted, axial and coronal TurboFLAIR images wereperformed without intravenous contrast. Post intravenous contrast (usinggadolinium) coronal and axial T1-weighted images were also obtained. Findings: The images reveal no mass lesions, midline shift, nor abnormalextraaxial fluid collections. The cerebral ventricles and sulci appearnormal for age. The cerebral white matter and rodriguez matter appear normalfor age. No abnormal restricted diffusion. Dedicated views of the medialtemporal lobes are unremarkable. Normal intracranial major vascular flowvoids are seen. Following the administration of contrast, no abnormalenhancement is detected. There are a few scattered T2 FLAIR hyperintense foci throughout the whitematter. Multiple areas of encephalomalacia and underlying gliosis in theinferior right frontal lobe, right frontal operculum, lateral anteriorright temporal lobe. Mucosal thickening in the right sphenoid locule. Orbits areunremarkable. IMPRESSION Impression: Multifocal encephalomalacia and gliosis in the right frontal and temporallobes, likely from prior trauma, likely the cause of seizures. No otherseizure nidus identified. I have personally reviewed the image(s) and initial interpretation, and Iagree with the findings as documented by the resident/fellow. Reading Radiologist: Deepak Harrington Reading Resident: Kem Pierce Minh Stephens MD RAD MR NEURO * (ABNORMAL) URINALYSIS,TOTAL (10/04/2023 2:34 PM TRAFFIC SIGNAL TECHNICIAN) Color YELLOW YELLOW [facility] Appearance CLEAR CLEAR [facility] Urine Glucose NEGATIVE NEGATIVE mg/dL [facility] Bili UA NEGATIVE NEGATIVE [facility] Ketones NEGATIVE NEGATIVE [facility] Specific [place] 1.026 1.003 - 1.030 [facility] Blood Ur NEGATIVE Neg-Trace [facility] PH Urine 6.5 5.0 - 7.0 [facility] Protein Ur TRACE Neg-Trace [facility] Urobilinogen 2(A) NORMAL EU/dL [facility] Nitrite Ur NEGATIVE NEGATIVE [facility] Leuk Est NEGATIVE Neg-Trace [facility] WBC Ur 0-5 0 - 5 perHPF [facility] RBC Ur 0-3 0 - 3 perHPF [facility] SQ EPITH 0-5 0 - 5 perHPF [facility] Mucus 1+ perLPF [facility] Urinalysis Performed at: [facility] Urine 10/04/2023 2:34 PM TRAFFIC SIGNAL TECHNICIAN 10/04/2023 2:45 PM TRAFFIC SIGNAL TECHNICIAN Minh Stephens MD LABORATORY Performing Organization Address [facility] Co de Phone Number [facility] [place] [address] * (ABNORMAL) URINE DRUG SCREEN (10/04/2023 2:30 PM TRAFFIC SIGNAL TECHNICIAN) Acetaminophen Ur NEG <=10 mcg/mL [facility] Amphetamine Ur NEG <=500 ng/mL [facility] Barbiturate Ur NEG <=200 ng/mL [facility] Benzodiazipine POS(A) <=100 ng/mL [facility] Buprenorphine Ur NEG <=5 ng/mL [facility] Cocaine Metab Ur NEG <=300 ng/mL [facility] Fentanyl, Urine NEG <=4 ng/mL [facility] LSD Ur NEG <=500 pg/mL [facility] Methadone Ur NEG <=300 ng/mL [facility] Opiate Ur NEG <=300 ng/mL [facility] Oxycodone Ur NEG <=100 ng/mL [facility] PCP Urine NEG <=25 ng/mL [facility] Propox Ur NEG <=300 ng/mL [facility] Salicylate Ur NEG <=10 mg/dL [facility] Creat Urine 178 >=20 mg/dL [facility] Mass Spectrometry Urine No other basic or neutral drugs found. [facility] Urine 10/04/2023 2:30 PM TRAFFIC SIGNAL TECHNICIAN 10/04/2023 2:45 PM TRAFFIC SIGNAL TECHNICIAN Magdaleno Arzate MD LABORATORY Performing Organization Address [facility] Co de Phone Number [facility] [address] [address] * RPR SYPHILIS SCREEN (10/04/2023 10:45 AM TRAFFIC SIGNAL TECHNICIAN) RPR Screen Non-Reactive Non-Reacti ve [facility] RPR Titer Not Reflexed [facility] Blood 10/04/2023 10:4 5 AM TRAFFIC SIGNAL TECHNICIAN 10/04/2023 11:25 AM TRAFFIC SIGNAL TECHNICIAN Minh Stephens MD LABORATORY Performing Organization Address City/[facility]/ZIP Co de Phone Number [facility] [address] [address] * ED EKG (12-LEAD) (10/04/2023 8:38 AM TRAFFIC SIGNAL TECHNICIAN) 10/04/2023 8:38 AM TRAFFIC SIGNAL TECHNICIAN Impressions [facility] CVIS EKG ORDERS - 10/04/2023 8:38 AM TRAFFIC SIGNAL TECHNICIAN SINUS RHYTHM. NO SIGN OF ACUTE ISCHEMIA P-R Interval 188 ms QRS Interval 110 ms QT Interval 353 ms QTC Interval 381 ms P Thomas 72 QRS Thomas 61 T Wave Thomas 69 Narrative Procedure Note Seht Salter MD - 10/04/2023 IMPRESSION SINUS RHYTHM. NO SIGN OF ACUTE ISCHEMIA P-R Interval 188 ms QRS Interval 110 ms QT Interval 353 ms QTC Interval 381 ms P Thomas 72 QRS Thomas 61 T Wave Thomas 69 Minh Stephens MD EKG Performing Organization Address [facility] Co de Phone Number [facility] [place]IS EKG ORDERS * VITAMIN [id number] TO MMA (10/04/2023 8:37 AM TRAFFIC SIGNAL TECHNICIAN) B12 646 211 - 946 pg/mL [facility] Blood 10/04/2023 8:37 AM TRAFFIC SIGNAL TECHNICIAN 10/04/2023 11:55 AM TRAFFIC SIGNAL TECHNICIAN Minh Stephens MD LABORATORY Performing Organization Address [facility] Co de Phone Number [facility] [address] [address] * AMMONIA (10/04/2023 8:37 AM TRAFFIC SIGNAL TECHNICIAN) Ammonia 29 16 - 60 mcmol/L [facility] Blood 10/04/2023 8:37 AM TRAFFIC SIGNAL TECHNICIAN 10/04/2023 8:46 AM TRAFFIC SIGNAL TECHNICIAN Narrative [facility] - 10/04/2023 9:18 AM TRAFFIC SIGNAL TECHNICIAN Send specimen on ice! Minh Stephens MD LABORATORY Performing Organization Address City/[facility] Co de Phone Number [facility] [address] [place] [address] * PANEL HEPATIC FUNCTION (10/04/2023 8:37 AM TRAFFIC SIGNAL TECHNICIAN) Total Protein 6.5 6.4 - 8.3 g/dL [facility] Albumin 4.0 3.8 - 5.1 g/dL [facility] Bili Total 0.6 <=1.2 mg/dL [facility] Bili Direct 0.2 <=0.3 mg/dL [facility] Alk Phos 83 40 - 129 IU/L [facility] ALT (SGPT) 29 <=41 IU/L [facility] AST(SGOT) 31 5 - 40 IU/L [facility] Blood 10/04/2023 8:37 AM TRAFFIC SIGNAL TECHNICIAN 10/04/2023 8:47 AM TRAFFIC SIGNAL TECHNICIAN Minh Stephens MD LABORATORY Performing Organization Address [facility]/ZIP Co de Phone Number [facility] [address] [address] * LACTATE (LACTIC ACID) (10/04/2023 8:37 AM TRAFFIC SIGNAL TECHNICIAN) [facility] Lactate 1.3 0.7 - 2.1 mmol/L [facility] Blood 10/04/2023 8:37 AM TRAFFIC SIGNAL TECHNICIAN 10/04/2023 8:43 AM TRAFFIC SIGNAL TECHNICIAN Narrative [facility] - 10/04/2023 8:50 AM TRAFFIC SIGNAL TECHNICIAN Send specimen on ice! Minh Stephens MD LABORATORY [facility] [address] [address] * (ABNORMAL) CBC WITH PLTS/AUTO DIFF (10/04/2023 8:37 AM TRAFFIC SIGNAL TECHNICIAN) Pathologist [facility] WBC 6.39 4.00 - 10.00 k/cmm [facility] RBC 3.82(L) 4.60 - 6.00 m/cmm [facility] Hgb 12.3(L) 13.1 - 17.5 g/dL [facility] Hematocrit 36.8(L) 40.0 - 51.0 % [facility] MCV 96.3 80.0 - 100.0 fL [facility] MCH 32.2(H) 25.0 - 32.0 pg [facility] MCHC 33.4 31.0 - 36.0 g/dL [facility] RDW 14.0 11.5 - 14.5 % [facility] Plt 234 150 - 400 k/cmm [facility] MPV 9.9 6.5 - 12.5 fL [facility] Automated Abs Neutrophil 3.83 1.70 - 6.50 k/cmm [facility] Comment:Preliminary ANC, Fin al Result to Follow Abs Immature Granulocyte 0.02 0.00 - 0.09 k/cmm [facility] Comment:The Immature Granulo cyte Absolute count contains metamyelocytes and myelocytes. Abs Neutrophil 3.83 1.70 - 6.50 k/cmm [facility] Abs Lymphocyte 1.68 0.80 - 4.00 k/cmm [facility] Abs Monocyte 0.64 0.20 - 1.00 k/cmm [facility] Abs Eosinophil 0.17 0.00 - 0.60 k/cmm [facility] Abs Basophil 0.05 0.00 - 0.20 k/cmm [facility] Blood 10/04/2023 8:37 AM TRAFFIC SIGNAL TECHNICIAN 10/04/2023 8:47 AM TRAFFIC SIGNAL TECHNICIAN Minh Stephens MD LABORATORY [facility] [address] [address] * (ABNORMAL) ED CHEMISTRY LABS(NA,K,CL,CO2,GLU,CREAT,CA-IONIZED,ANION GAP) (10/04/2023 8:37 AM TRAFFIC SIGNAL TECHNICIAN) Sodium 139 135 - 148 mEq/L [facility] Chloride 109(H) 92 - 108 mEq/L [facility] AnGap 9 8 - 16 mEq/L [facility] Glucose 82 70 - 100 mg/dL [facility] ICA, Actual 4.27(L) 4.40 - 5.20 mg/dL [facility] ICA, pH Corrected 4.29(L) 4.40 - 5.20 mg/dL [facility] Creatinine 0.57(L) 0.70 - 1.25 mg/dL [facility] BICARB 22 22 - 26 mEq/L [facility] eGFR (2020 CKD-EPI) >120 >=60 ml/min/1.7 3m2 [facility] Comment: The estimated glomerular filtration rate (eGFR) was calculated using the CKD-EPI 2020 creatinine equation, which does not include race as a factor. This equation is validated in individuals 18 years of age and older, and eGFR is normalized to a body surface area of 1.73m^2. Potassium 3.7 3.5 - 5.3 mEq/L [facility] Blood 10/04/2023 8:37 AM TRAFFIC SIGNAL TECHNICIAN 10/04/2023 8:44 AM TRAFFIC SIGNAL TECHNICIAN Minh Stephens MD LABORATORY [facility] [address] [address] * COVID/FLU COMBO (10/04/2023 6:50 AM TRAFFIC SIGNAL TECHNICIAN) COVID-19 Not Detected Not Detected [facility] Comment: This test was developed and its performance characteristics determined by [facility] [employer]. This testing, RT-PCR, has been authorized by the FDA under an Emergency Use Authorization (EUA) for Coronavirus Disease-2019 during the Public Health Emergency. This test has been validated in accordance with the FDA's Guidance Document Policy for EUA use and Accelerated Template for Laboratories Certified to Perform High-Complexity Testing Under CLIA: EUA Template (Updated December 14, 2019)This test is only authorized for the duration of time the declaration that circumstances exist justifying the authorization of the emergency use of in vitro diagnostic tests for detection of SARS-CoV-2 virus and/or diagnosis of COVID-19 infection under section 564(b)(1) of the Act, 21U.S.C. 360bbb-3(b)(1), unless the authorization is terminated or revoked sooner. Nasopharyngeal specimens are the preferred specimens. Flu A Not Detected Not Detected [facility] Flu B Not Detected Not Detected [facility] Nasopharyngeal Swab 10/04/20 6:50 AM TRAFFIC SIGNAL TECHNICIAN 10/04/2023 6:52 AM TRAFFIC SIGNAL TECHNICIAN Narrative [facility] - 10/04/2023 7:15 AM TRAFFIC SIGNAL TECHNICIAN Must be MORNING SHOW HOST swab. ??COVID and Influenza testing can be completed on the same swab Sending tests other than COVID-19 and Influenza requires additional swab(s) Is the patient a healthcare employee: No Is the patient a [employer] ([facility]) Employee: No Date of symptom onset: 09/30/23 If eligible is the patient interested in medication for treatment of COVID disease: Yes Minh Stephens MD LABORATORY [facility] [address] [address] documented in this encounter Visit Diagnoses Diagnosis Seizure ()- Primary Other convulsions Seizure () Other convulsions documented in this encounter Admitting Diagnoses Diagnosis Seizure () Other convulsions documented in this encounter Administered Medications Inactive Administered Medications - up to 3 most recent administrations Medication Order MAR Action Action Date Dose Rate Site acetaminophen tablet 650 mg 650 mg, Oral, Q4H PRN, Starting on Mon10/04/23 at 1206, Until Mon10/05/23 at 1703, Temp > 38.6 C, Mild Pain (Use First) Given 10/04/2023 1:23 PM TRAFFIC SIGNAL TECHNICIAN 650 mg folic acid (FOLATE) 5 mg/mL injection 1 mg 1 mg, IV Push, ONE TIME, 1 dose, On Mon10/04/23 at 0930 Given 10/04/2023 10:33 AM TRAFFIC SIGNAL TECHNICIAN 1 mg gadobutrol (GADAVIST) 1 mmol/mL injection 0-15 mL 0-15 mL, IV Push, RAD ONE TIME AUTO ACKNOWLEDGE, 1 dose, On Mon10/05/23 at 0915 Given 10/05/2023 9:17 AM TRAFFIC SIGNAL TECHNICIAN 4 mL levETIRAcetam (KEPPRA) tablet 1,000 mg 1,000 mg, Oral, BID, First dose on Mon10/04/23 at 1345, Until Discontinued Given 10/05/2023 10:01 AM TRAFFIC SIGNAL TECHNICIAN 1,000 mg Given 10/04/2023 8:40 PM TRAFFIC SIGNAL TECHNICIAN 1,000 mg Given 10/04/2023 2:37 PM TRAFFIC SIGNAL TECHNICIAN 1,000 mg LORazepam (ATIVAN) 2 mg/mL injection 2 mg 2 mg, IV Push, DAILY PRN, Starting on Mon10/04/23 at 1238, Until Isabella 10/05/23 at 1703, Seizures, sz lasting greater than 5min thiamine (VITAMIN B1) 500 mg in 50mL NS IVPB 500 mg, Intravenous, ONE TIME-NOW, Administer over 60 Minutes, On Mon10/04/23 at 0930 New Bag 10/04/2023 10:34 AM TRAFFIC SIGNAL TECHNICIAN 500 mg VTE - Low Risk Low Risk Reason: Ambulating greater than 200m Twice Daily, Does not apply, PROTOCOL, Starting on Mon10/04/23 at 1206, Until Isabella 10/05/23 at 1703 documented in this encounter Active and Recently Administered Medications Times are shown in TRAFFIC SIGNAL TECHNICIAN. Scheduled Medication Order 10/03/2023 10/04/2023 10/05/2023 folic acid (FOLATE) 5 mg/mL injection 1 mg (COMPLETED) 1 mg, IV Push, ONE TIME, 1 dose, On Mon10/04/23 at 0930 1033 (Given - Provider: Lubna Steele, TIFFANY) gadobutrol (GADAVIST) 1 mmol/mL injection 0-15 mL (COMPLETED) 0-15 mL, IV Push, RAD ONE TIME AUTO ACKNOWLEDGE, 1 dose, On Isabella 10/05/23 at 0915 0917 (Given - Provid er: Jos Rivas, RT) levETIRAcetam (KEPPRA) tablet 1,000 mg 1,000 mg, Oral, BID, First dose on Mon10/04/23 at 1345, Until Discontinued 1437 (Given - Provider: Yessica Hale RN)2040 (Given - Provider: Carmen William RN) 0950 (Delayed (keeps Due time) - Provider: Elisha Zapata RN - Reason: Patient not in room)1001 (Given - Provider: Elisha Zapata, TIFFANY) thiamine (VITAMIN B1) 500 mg in 50mL NS IVPB (COMPLETED) 500 mg, Intravenous, ONE TIME-NOW, Administer over 60 Minutes, On Mon10/04/23 at 0930 1034 (New Bag - Provider: Lubna Steele, TIFFANY)1133 (Infusion completed - Provider: Lubna Steele, TIFFANY) VTE - Low Risk(Linked Group 1) Low Risk Reason: Ambulating greater than 200m Twice Daily, Does not apply, PROTOCOL, Starting on Mon10/04/23 at 1206, Until Isabella 10/05/23 at 1703 PRN Medication Order 10/03/2023 10/04/2023 10/05/2023 acetaminophen tablet 650 mg 650 mg, Oral, Q4H PRN, Starting on Mon10/04/23 at 1206, Until Isabella 10/05/23 at 1703, Temp > 38.6 C, Mild Pain (Use First) 1323 (Given - Provider: Yessica Hale RN) LORazepam (ATIVAN) 2 mg/mL injection 2 mg 2 mg, IV Push, DAILY PRN, Starting on Mon10/04/23 at 1238, Until Isabella 10/05/23 at 1703, Seizures, sz lasting greater than 5min Linked Groups Order Group 1: VTE - Low RiskJump to med Low Risk Reason: Ambulating greater than 200m Twice Daily
Does not apply, PROTOCOL, Starting on Mon10/04/23 at 1206, Until Isabella 10/05/23 at 1703 And VTE - Low Risk Communication (CANCELED) ONCE, On Mon10/04/23 at 1210, For 1 occurrence
Low Risk Reason: Ambulating greater than 200m Twice Daily
Patient at low risk for VTE; neither mechanical nor chemical prophylaxis is required documented in this encounter Additional Health Concerns Infection Onset Date Last Indicated Resolved Time SARS-CoV-2 Rule-Out 10/04/2023 10/04/2023 10/04/20 7:15 AM TRAFFIC SIGNAL TECHNICIAN documented as of this encounter Care Teams Transfer Car Operator Relationship Specialty Start Date End Date Pcp, [place] [address] PCP - General 08/31/14 documented as of this encounter
--- OUTSIDE RECORDS SUMMARY | 2023-10-19 17:28 | XMS_ITS | Encounter Summary ---
Author Name Unknown Organization [facility] Address [address] [facility] [address] Phone Care Team Providers Care Straightener And Aligner Name Role Phone Pcp, No Primary Care [...] Coronavirus/COVID-19? No / Unsure 10/04/2023 6:06 AM LEARNING AND DEVELOPMENT ADMINISTRATOR documented as of this encounter Plan of Treatment Upcoming Encounters Date Type Department Care Team Description 10/26/2023 10:40 AM LEARNING AND DEVELOPMENT ADMINISTRATOR Office Visit [facility] [address] [place] [address] Fina Shultz MD [address] [place], [place] [id number] Food And Beverage Coordinator, [facility] [place] Scheduled Discharge Disposition: Discharged to home or self care (routine discharge) 10/31/2023 12:00 PM LEARNING AND DEVELOPMENT ADMINISTRATOR Appointment [facility] [address] [facility] [address] [place], [place] [id number] 1, Eeg - Outpatient 2, Isd-[place] [address] [place] [address] Scheduled Discharge Disposition: Discharged to home or self care (routine discharge) documented as of this encounter Procedures Procedure Name Priority Date/Time Associated Diagnosis Comments TELEMETRY STRIPS 10/05/2023 10:3 4 AM LEARNING AND DEVELOPMENT ADMINISTRATOR documented in this encounter Results * TELEMETRY STRIPS (10/05/2023 10:34 AM LEARNING AND DEVELOPMENT ADMINISTRATOR) Narrative 10/05/2023 10:34 AM LEARNING AND DEVELOPMENT ADMINISTRATOR Ordered by an unspecified provider. Provider Unknown RAD ECHO documented in this encounter Visit Diagnoses Not on filedocumented in this encounter Care Teams Straightener And Aligner Relationship Specialty Start Date End Date Pcp, No [place] [place] [address] PCP - General 08/31/14 documented as of this encounter
--- OUTSIDE RECORDS SUMMARY | 2023-10-19 17:28 | XMS_ITS | Encounter Summary ---
Author Name Unknown Organization [facility] Address [address] [facility] [place] [address] Phone Care Team Providers Care Patient Flow Coordinator Name Role Phone Pcp, No Primary Care [...] Coronavirus/COVID-19? No / Unsure 10/04/2023 6:06 AM LAUNDRY TECH documented as of this encounter Plan of Treatment Upcoming Encounters Date Type Department Care Team Description 10/26/2023 10:40 AM LAUNDRY TECH Office Visit [facility] [address] [place] [address] Fina Shultz MD [address] [place], [place] [address] Machine Presser, [facility] [place] Scheduled Discharge Disposition: Discharged to home or self care (routine discharge) 10/31/2023 12:00 PM LAUNDRY TECH Appointment [facility] [address] [facility] [address] [place], [place] [id number] 1, Eeg - Outpatient 2, Isd-[place] [address] [place] [address] Scheduled Discharge Disposition: Discharged to home or self care (routine discharge) documented as of this encounter Procedures Procedure Name Priority Date/Time Associated Diagnosis Comments TELEMETRY STRIPS 10/05/2023 4:23 AM LAUNDRY TECH documented in this encounter Results * TELEMETRY STRIPS (10/05/2023 4:23 AM LAUNDRY TECH) Narrative 10/05/2023 4:23 AM LAUNDRY TECH Ordered by an unspecified provider. Provider Unknown RAD ECHO documented in this encounter Visit Diagnoses Not on filedocumented in this encounter Care Teams Patient Flow Coordinator Relationship Specialty Start Date End Date Pcp, [place] [address] PCP - General 08/31/14 documented as of this encounter
--- OUTSIDE RECORDS SUMMARY | 2023-10-19 17:28 | XMS_ITS | Encounter Summary ---
Author Name Unknown Organization [facility] Address [address] [facility] [place] [address] Phone Care Team Providers Care Social Media Community Manager Name Role Phone Pcp, No Primary Care [...] Coronavirus/COVID-19? No / Unsure 10/04/2023 6:06 AM SPINNING MULE TENDER documented as of this encounter Plan of Treatment Upcoming Encounters Date Type Department Care Team Description 10/26/2023 10:40 AM SPINNING MULE TENDER Office Visit [facility] [address] [place] [address] Fina Shultz MD [address] [place], [place] [phone] Zoology Technical Officer, [facility] [place] Scheduled Discharge Disposition: Discharged to home or self care (routine discharge) 10/31/2023 12:00 PM SPINNING MULE TENDER Appointment [facility] [address] [facility] [address] [place], [place] [id number] 1, Eeg - Outpatient 2, Isd-[place] [address] [place] [address] Scheduled Discharge Disposition: Discharged to home or self care (routine discharge) documented as of this encounter Procedures Procedure Name Priority Date/Time Associated Diagnosis Comments TELEMETRY STRIPS 10/05/2023 3:59 AM SPINNING MULE TENDER documented in this encounter Results * TELEMETRY STRIPS (10/05/2023 3:59 AM SPINNING MULE TENDER) Narrative 10/05/2023 3:59 AM SPINNING MULE TENDER Ordered by an unspecified provider. Provider Unknown RAD ECHO documented in this encounter Visit Diagnoses Not on filedocumented in this encounter Care Teams Social Media Community Manager Relationship Specialty Start Date End Date Pcp, [place] [address] PCP - General 08/31/14 documented as of this encounter
--- OUTSIDE RECORDS SUMMARY | 2023-10-19 17:28 | XMS_ITS | Clinical Summary ---
Author Name Unknown Organization [facility] Address [place] [address] Phone Care Team Providers Care Mannequin Mounter Name Role Phone Pcp, No Primary Care Provider Unavailabl e Source Comments [facility] is fully rolled out on [employer]. Last update 03/13/09.[employer] Allergies Active Allergy Reactions Criticality Noted Date Comments Unknown Unknown 11/26/2020 Medications * Be aware that medications may not be up to date as of this document. Always verify current medications with patient. Medication Sig Dispensed Refills Start Date End Date Status levETIRAcetam (KEPPRA) 1000 mg oral TABS Take 1 tablet (1,000 mg) by mouth twice daily. 60 tablet 0 10/05/2023 Active acetaminophen 325 mg oral tablet Take 1-2 tablets (325-650 mg) by mouth every four hours as needed for Mild Pain or Moderate Pain. 40 tablet 0 03/29/2020 10/04/2023 Discontinued ( Medication) sertraline (ZOLOFT) 50 mg oral tablet Take 1 tablet (50 mg) by mouth daily. 0 01/22/2023 10/04/2023 Discontinued ( Medication) ERGOcalciferol (VITAMIN D) 50,000 UNITS oral capsule Take 1 capsule (50,000 UNITS) by mouth every week. 8 capsule 0 03/07/2023 10/04/2023 Discontinued ( Medication) naltrexone (REVIA) 50 mg oral TABSIndications:A lcohol Use Disorder Take 1 tablet (50 mg) by mouth daily. Indications: Abuse or Misuse of Alcohol 30 tablet 0 02/28/2023 10/04/2023 Discontinued ( Medication) nicotine polacrilex (COMMIT) 2 mg mouth/throat lozengeIndication s:Nicotine Dependence Dissolve 1 lozenge (2 mg) in mouth every 1 hour as needed for nicotine craving. 72 lozenge 0 02/28/2023 10/04/2023 Discontinued ( Medication) azithromycin (ZITHROMAX) 250 mg oral TABS Take 500 mg (2 tablets) once, then 250 mg (1 tablet) by mouth daily for 4 days. 6 tablet 0 07/24/2023 10/04/2023 Discontinued ( Medication) benzonatate (TESSALON) 100 mg oral capsule Take 1 capsule (100 mg) by mouth 3 times daily as needed for Cough. 15 capsule 0 07/24/2023 10/04/2023 Discontinued ( Medication) chlorhexidine (PERIDEX) 0.12% mouth/throat solution Swish and spit 1/2 of an ounce (15 mL) by mouth twice daily for 30 seconds. Do not eat or drink for 30 minutes after use. 473 mL 0 09/16/2023 10/04/2023 Discontinued ( Medication) Active Problems Problem Noted Date Diagnosed Date Seizure 10/04/2023 Alcohol use disorder, mild, abuse 02/28/2023 Adrenal nodule 02/28/2023 Community acquired pneumonia of left lower lobe of lung 02/27/2023 Homelessness 11/27/2019 Abscess 11/23/2019 Open fracture of left mandibular angle with nonu nion 07/18/2019 Pain management 01/07/2014 Tooth disorder 01/07/2014 TB lung, latent 12/23/2013 Overview: Positive QuantiFERON-TB Gold test 12/10/2013: 0.89; treatment started 02/27/2014 Vitamin D deficiency 12/23/2013 Overview: 12/18/2013: 11.9; ergocalciferol prescribed Fractures 12/12/2013 Major depression, single episode 12/12/2013 Dry skin 12/12/2013 Tibial fracture 12/04/2013 Open wound of buttock 10/24/2013 Open displaced pilon fracture of right tibia, ty pe IIIA 2013 Overview: S/p IM Nailing of Right Tibia, Removal of Right tibia external fixator, I&D of Right Tibia fixator pin sites 12/04/2013 Resolved Problems Problem Noted Date Diagnosed Date Resolved Date Constipation 12/12/2013 09/19/2019 Frostbite 10/24/2013 09/19/2019 Acute stress disorder 10/16/20132018 Encounters Date Type Department Care Team Description 10/05/2023 Orders Only Unspecified Department [place] Unknown, Provider 10/05/2023 Orders Only Unspecified Department [place] Unknown, Provider 10/05/2023 Orders Only Unspecified Department [place] Unknown, Provider 10/05/2023 Orders Only Unspecified Department [place] Unknown, Provider 10/05/2023 Orders Only Unspecified Department [place] Unknown, Provider 10/05/2023 Orders Only Unspecified Department [place] Unknown, Provider 10/05/2023 Orders Only Unspecified Department [place] Unknown, Provider 10/05/2023 Orders Only Unspecified Department [place] Unknown, Provider 10/04/2023 6:04 AM FISH TRAPPER - 10/05/2023 2:03 PM FISH TRAPPER Hospital Encounter [facility] Surgery/Trauma/Monique ro [address] [facility] [address] [place] [address] Minh Stephens MD Rhodes, MD Shalom Vines Shrikar S, MD Jones, Compa Patricia MD Seizure () Discharge Disposition: Discharged to home or self care (routine discharge) 10/04/2023 Orders Only Unspecified Department [place] Unknown, Provider 10/04/2023 Orders Only Unspecified Department [place] Unknown, Provider 10/04/2023 Orders Only Unspecified Department [place] Unknown, Provider 10/04/2023 Orders Only Unspecified Department [place] Unknown, Provider 10/04/2023 Orders Only Unspecified Department [place] Unknown, Provider 10/04/2023 Orders Only Unspecified Department [place] Unknown, Provider 10/04/2023 Orders Only Unspecified Department [place], Provider 10/04/2023 Orders Only Unspecified Department [place], Provider 10/04/2023 Orders Only Unspecified Department [place], Provider 10/04/2023 Orders Only Unspecified Department [place] Unknown, Provider 10/04/2023 Travel 09/30/2023 11:36 PM FISH TRAPPER - 10/01/2023 12:48 AM FISH TRAPPER Emergency [facility] Emergency Department [address] [place] [address] Elizabeth Chino MD Discharge Disposition: Discharged to home or self care (routine discharge) 09/30/2023 Travel 09/25/2023 12:35 PM FISH TRAPPER - 09/25/2023 5:14 PM [facility] Emergency [facility] Emergency Department [address] [place] [address] Ronaldo Burns MD Laceration of tongue, initial encounter Discharge Disposition: Discharged to home or self care (routine discharge) 09/25/2023 Travel 09/18/2023 9:00 PM FISH TRAPPER - 09/19/2023 4:56 AM [facility] Emergency [facility] Emergency Department [address] [place] [address] Beltran Galvan MD Acute alcoholic intoxication with complication () Discharge Disposition: Discharged to home or self care (routine discharge) 09/18/2023 Travel 09/16/2023 7:35 PM FISH TRAPPER - 09/16/2023 9:19 PM [facility] Emergency [facility] Emergency Department [address] [place] [address] Yina Fisher MD Miner, James R, MD Tongue wound, initial encounter Discharge Disposition: Discharged to home or self care (routine discharge) 09/16/2023 Travel 08/29/2023 [facility]phone [facility] [address] [address] Ent Appointment 08/22/2023 7:08 PM FISH TRAPPER - 08/23/2023 4:30 AM [facility] Emergency [facility] Emergency Department [address] [place] [address] Rosaura Solis MD Robinson, Aaron E, MD Transient alteration of awareness Discharge Disposition: Discharged to home or self care (routine discharge) 08/22/2023 Travel 07/24/2023 3:11 AM CDT - 07/24/2023 3:37 AM [facility] Emergency [facility] Emergency Department [address] [place] [address] Sergei Grajeda MD Bronchitis Discharge Disposition: Discharged to home or self care (routine discharge) 07/24/2023 Travel from Last 3 Months Immunizations Name Administration Dates Next Due COVID-19 Ad26 Vaccine (Walker) suspension 12/24 COVID-19 Vaccine Monovalent (MODERNA) 12 Years and Older 01/26/2022 Influenza Vaccine - (3 Years +) Trivalent 2013 Influenza Vaccine 6 Months through Adult - Prefi lled 11/23/2019 Influenza Vaccine, Unspecified 12/12/2013 Tetanus Toxoid, Reduced Diph theroid Toxoid Acellular Pertussis 2013 Social History Tobacco Use Types Packs/Day Years Used Date Smoking Tobacco: Never Assessed Cigarettes 0.5 Started: 1984 Smokeless Tobacco: Current Tobacco Cessation:Ready to Q uit: Yes Alcohol Use Standard Drinks/Week Comments Yes 3.3 [...] Coronavirus/COVID-19? No / Unsure 10/04/2023 6:06 AM FISH TRAPPER Last Filed Vital Signs Vital Sign Reading Time Taken Comments Blood Pressure 127/70 10/05/2023 10:00 AM FISH TRAPPER Pulse 74 10/05/2023 9:22 AM FISH TRAPPER Temperature 35.6 ??C (96.1 ??F) 10/05/2023 5:14 AM CS T Respiratory Rate 16 10/05/2023 5:14 AM FISH TRAPPER Oxygen Saturation 98% 10/05/2023 9:22 AM FISH TRAPPER Inhaled Oxygen Concentration - - Weight 83 kg (183 lb) 07/24/2023 12:55 AM CDT Height 188 cm (6' 2) 07/24/2023 12:55 AM CDT Body Mass Index 23.5 07/24/2023 12:55 AM CDT Plan of Treatment Upcoming Encounters Date Type Department Care Team Description 10/26/2023 10:40 AM FISH TRAPPER Office Visit [facility] [address] [place] [address] Fina Shultz MD [address] [place], [place] [id number] Wrecker Operator, [facility] [place] Scheduled Discharge Disposition: Discharged to home or self care (routine discharge) 10/31/2023 12:00 PM FISH TRAPPER Appointment [facility] EEG [address] [place], [place] [phone] 1, Eeg - Outpatient 2, [facility] [address] [place] [address] Scheduled Discharge Disposition: Discharged to home or self care (routine discharge) Health Maintenance Due Date Last Done Comments Dental Oral Exam 1983 Dental Prophylaxis 1983 Dental X-Ray: Bitewings 1983 Depression Management 1983 Hepatitis B Vaccines (1 of 3 - 3-dose series) 1983 Lipid Screening 1984 Pneumococcal Vaccine: Pediatrics (0 to 5 Years) and At-Risk Patients (6 to 64 Years) (1 of 2 - PCV) 1989 Periodontal Maintenance 1997 PREVENTATIVE VISIT 2001 HEALTH MAINTENANCE PROTOCOL 2002 INFLUENZA VACCINE 05/09/2023 11/23/2019, 12/12/2013, 12/12/2013 COVID-19 Vaccine (3 - 2022-2 4 season) 2023 01/26/2022, 12/24/2020 TD/TDAP ADULTS 2023 2013 HIV Screening Completed 02/27/2023 HIB Aged Out No longer eligi ble based on patient's age to complete this topic HPV Aged Out No longer eligi ble based on patient's age to complete this topic RSV Immunoglobulin Aged Out No longer eligible based on patient's age to complete this topic Medical Devices Implanted Type Area Sterilizer Machine Operator Device Identifier Shelf Expiration Date Model / Serial / Lot Log [id number] - Depuy Ashish 3.5/4.0mm Cannulated Screws - 1 - K-Wire 1.6mm Bayonet [id number] Implanted:Qty: 5 on 10/16/2013 at [facility] Pin Right: Ankle [employer] [id number] / / Plate, 12 Hole 04.503.756 Implanted:Qty: 1 on 07/18/2019 by Arvin Pierce MD at [facility] Plate Left: Mandible [employer] [id number] / / Description:cut to a 6 hole plate Plate, Ti 10 Hole (Short) 820 Implanted:Qty: 2 on 07/18/2019 by Arvin Pierce MD at [facility] Explanted:Qty: 1 on 11/23/2019 by Jane Paredes MD at [facility] Plate Left: Mandible [employer] 820 / / Description:6 hole plate rem eliane and 4 screws removed Log [id number] - Elke T-2 Tibial Nail - 1 - [id number] Implanted:Qty: 1 on 12/04/2013 by Julio Cesar Prasad MD at [facility] Kameron Right: Tibia [employer] 09/07/2016 [id number] / / [id number] Log [id number] - Depuy Ashish 3.5/4.0mm Cannulated Screws - 1 - 38mm [id number] Implanted:Qty: 1 on 10/16/2013 at [facility] Screw/Elvis t Right: Ankle [employer] [id number] / / Log [id number] - Elke T-2 Tibial Nail - 1 - 40mm (1896-5040s) Implanted:Qty: 1 on 12/04/2013 by Julio Cesar Prasad MD at [facility] Screw/Elvis t Right: Tibia [employer] 10/08/2018 [id number] / / [id number] 10mm [id number] Implanted:Qty: 4 on 07/18/2019 by Arvin Pierce MD at [facility] Screw/Elvis t [employer] [id number] .01 / / Screw Wave 6mm 503.824.01 Implanted:Qty: 10 on 07/18/2019 by Arvin Pierce MD at [facility] Left: Mandible [employer] 503.824 .01 / / Explanted Type Area Sterilizer Machine Operator Device Identifier Shelf Expiration Date Model / Serial / Lot Log [id number] - Gee Xtrafix - 1 - Bar To Bar [id number] Implanted:Qty: 4 on 2013 at [facility] Explanted:Qty: 1 on 12/04/2013 by Julio Cesar Prasad MD at [facility] Clamp/Pi benitoer Right: Leg Lower [employer] [id number] / / Log [id number] - Gee Xtrafix - 1 - 5mm X 275mm X 6mm Transfixing [id number] Implanted:Qty: 1 on 2013 at [facility] Explanted:Qty: 1 on 12/04/2013 by Julio Cesar Prasad MD at [facility] Pin Right: Leg Lower [employer] [id number] / / 2x2 Hole Broad, Malleable 04.503.750 Implanted:Qty: 1 on 05/30/2019 by Arvin Pierce MD at [facility] Explanted:Qty: 1 on 07/18/2019 at [facility] Plate Left: Mandible [employer] 04.503.750 / / 3x3 2.0mm Angle Wide 04.503.731 Implanted:Qty: 1 on 07/18/2019 by Arvin Pierce MD at [facility] Explanted:Qty: 1 on 11/23/2019 by Jane Paredes MD at [facility] Plate Left: Mandible [employer] 04.503.731 / / Log [id number] - Gee Xtrafix - 1 - Bent 175mm [id number] Implanted:Qty: 1 on 2013 at [facility] Explanted:Qty: 1 on 12/04/2013 by Julio Cesar Prasad MD at [facility] Kameron Right: Leg Lower [employer] [id number] / / 8mm 04.503.408.01 Implanted:Qty: 1 on 05/30/2019 by Arvin Pierce MD at [facility] Explanted:Qty: 1 on 07/18/2019 at [facility] Screw/Mg lt Left: Mandible [employer] [id number] 1 / / Gee Bar To Pin Clamp 3-D Implanted:Qty: 4 on 2013 by Julio Cesar Prasad MD at [facility] Explanted:Qty: 1 on 12/04/2013 by Julio Cesar Prasad MD at [facility] Right: Tibia [employer] [id number] / / 8mm [id number] Implanted:Qty: 2 on 05/30/2019 by Arvin Pierce MD at [facility] Explanted:Qty: 2 on 07/18/2019 at [facility] Left: Mandible [employer] [id number] 1 / / Procedures Procedure Name Priority Date/Time Associated Diagnosis Comments TELEMETRY STRIPS 10/05/2023 10:3 4 AM FISH TRAPPER TELEMETRY STRIPS 10/05/2023 10:3 2 AM FISH TRAPPER MR BRAIN W/O + WITH CONTRAST Routine 10/05/2023 9:44 AM FISH TRAPPER TELEMETRY STRIPS 10/05/2023 8:44 AM FISH TRAPPER TELEMETRY STRIPS 10/05/2023 8:07 AM FISH TRAPPER TELEMETRY STRIPS 10/05/2023 5:02 AM FISH TRAPPER TELEMETRY STRIPS 10/05/2023 4:23 AM FISH TRAPPER TELEMETRY STRIPS 10/05/2023 3:59 AM FISH TRAPPER TELEMETRY STRIPS 10/05/2023 3:39 AM FISH TRAPPER TELEMETRY STRIPS 10/04/2023 9:30 PM FISH TRAPPER TELEMETRY STRIPS 10/04/2023 8:21 PM FISH TRAPPER TELEMETRY STRIPS 10/04/2023 8:19 PM FISH TRAPPER TELEMETRY STRIPS 10/04/2023 7:22 PM FISH TRAPPER TELEMETRY STRIPS 10/04/2023 5:10 PM FISH TRAPPER TELEMETRY STRIPS 10/04/2023 5:09 PM FISH TRAPPER TELEMETRY STRIPS 10/04/2023 3:49 PM FISH TRAPPER TELEMETRY STRIPS 10/04/2023 3:31 PM FISH TRAPPER TELEMETRY STRIPS 10/04/2023 3:24 PM FISH TRAPPER TELEMETRY STRIPS 10/04/2023 3:08 PM FISH TRAPPER PC LAB COMPLETE UA STAT 10/04/2023 2: 34 PM FISH TRAPPER URINE DRUG SCREEN Routine 10/04/2023 2:3 0 PM FISH TRAPPER PC SYPHILIS SCREEN Routine 10/04/2023 10 :45 AM FISH TRAPPER ED EKG (12-LEAD) Routine 10/04/2023 8:38 AM FISH TRAPPER PC LAB B12 (CYANOCOBALMIN) Routine 10/04/2023 8:37 AM FISH TRAPPER PC AMMONIA STAT 10/04/2023 8:37 AM FISH TRAPPER PANEL HEPATIC FUNCTION STAT 10/04/2023 8:37 AM FISH TRAPPER PC LACTATE (LACTIC ACID) STAT 10/04/2023 8:37 AM FISH TRAPPER TC LAB BLOOD DRAW BY VENIPUNCTURE STAT 10/04/2023 8:37 AM FISH TRAPPER PC ELECTROLYTES PANEL STAT 10/04/2023 8:37 AM FISH TRAPPER COVID/FLU COMBO STAT 10/04/2023 6:50 AM FISH TRAPPER PC LACTATE (LACTIC ACID) STAT 09/25/2023 3:39 PM FISH TRAPPER PC ELECTROLYTES PANEL STAT 09/25/2023 3:[address] HEAD NO IV CONTRAST Routine 09/25/2023 1:41 PM FISH TRAPPER ETHANOL (ETOH) LEVEL, BLOOD Routine 09/25/2023 12:40 PM FISH TRAPPER PC IONIZED,CALCIUM Routine 09/25/2023 12 :40 PM FISH TRAPPER PC LAB CBC W/DIFF & PLT Routine 09/25/2023 12:40 PM FISH TRAPPER PC LACTATE (LACTIC ACID) STAT 09/25/2023 12:40 PM FISH TRAPPER EXTRA TUBE - BLUE Routine 09/25/2023 12: 40 PM FISH TRAPPER EXTRA TUBE - DARK GREEN Routine 09/25/2023 12:40 PM FISH TRAPPER EXTRA TUBE - SST Routine 09/25/2023 12:4 0 PM FISH TRAPPER EXTRA TUBE - LAVENDER Routine 09/25/2023 12:40 PM FISH TRAPPER TC LAB BLOOD DRAW BY VENIPUNCTURE Routine 09/25/2023 12:40 PM FISH TRAPPER ETHANOL (ETOH) LEVEL, BLOOD Routine 09/16/2023 5:22 PM FISH TRAPPER EXTRA TUBE - DARK GREEN Routine 09/16/2023 5:22 PM FISH TRAPPER TC LAB BLOOD DRAW BY VENIPUNCTURE Routine 09/16/2023 5:22 PM FISH TRAPPER PC LACTATE (LACTIC ACID) STAT 09/16/2023 5:22 PM FISH TRAPPER PC LAB CBC W/DIFF & PLT STAT 09/16/2023 5:22 PM FISH TRAPPER PC ELECTROLYTES PANEL STAT 09/16/2023 5:22 PM FISH TRAPPER XR HAND RIGHT 3 V PA/OBL/LAT* Routine 08/23/2023 1:33 AM FISH TRAPPER XR WRIST RIGHT 3+ PA/OB/LAT/ENEDINA* Routine 08/23/2023 1:[address] FACIAL BONES NO IV CON Routine 08/22/2023 8:[address] SPINE CERVICAL NO IV CON Routine 08/22/2023 8:[address] HEAD NO IV CONTRAST Routine 08/22/2023 8:48 PM FISH TRAPPER XR CHEST 2 VIEWS PA + LAT* Routine 07/24/2023 1:06 AM CDT COVID/FLU COMBO STAT 07/24/2023 1:06 AM CDT from Last 3 Months Results * TELEMETRY STRIPS (10/05/2023 10:34 AM FISH TRAPPER) Only the most recent of18 resultswithin the time period is included. Narrative 10/05/2023 10:34 AM FISH TRAPPER Ordered by an unspecified provider. 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 No other seizure nidus identified. I have personally reviewed the image(s) and initial interpretation, and I agree with the findings as documented by the resident/fellow. Reading Radiologist: Deepak Harrington Reading Resident: Kem Pierce Narrative 10/05/2023 10:39 AM FISH TRAPPER Brain MRI without and with contrast Indication: [...] for age. The cerebral white matter and koch matter appear normal for age. No abnormal [...] for age. The cerebral white matter and koch matter appear normalfor age. No abnormal restricted [...] NEURO * (ABNORMAL) URINALYSIS,TOTAL (10/04/2023 2:34 PM FISH TRAPPER) Color YELLOW YELLOW [facility] Appearance CLEAR CLEAR [facility] Urine Glucose NEGATIVE NEGATIVE mg/dL [facility] Bili UA NEGATIVE NEGATIVE [facility] Ketones NEGATIVE NEGATIVE [facility] Specific [place] 1.026 1.003 - 1.030 [facility] Blood Ur NEGATIVE Neg-Trace [facility] PH Urine 6.5 5.0 - 7.0 [facility] Protein Ur TRACE Neg-Trace [facility] Urobilinogen 2(A) NORMAL EU/dL [facility] Nitrite Ur NEGATIVE NEGATIVE [facility] Leuk Est NEGATIVE Neg-Trace [facility] WBC Ur 0-5 0 - 5 perHPF [facility] RBC Ur 0-3 0 - 3 perHPF [facility] SQ EPITH 0-5 0 - 5 perHPF [facility] Mucus 1+ perLPF [facility] Urinalysis Performed at: [facility] Urine 10/04/2023 2:34 PM FISH TRAPPER 10/04/2023 2:45 PM FISH TRAPPER Minh Stephens MD LABORATORY [facility] [address] [address] * (ABNORMAL) URINE DRUG SCREEN (10/04/2023 2:30 PM FISH TRAPPER) Acetaminophen Ur NEG <=10 mcg/mL [facility] Amphetamine Ur NEG <=500 ng/mL [facility] Barbiturate Ur NEG <=200 ng/mL [facility] Benzodiazipine POS(A) <=100 ng/mL [facility] Buprenorphine Ur NEG <=5 ng/mL [facility] Cocaine Metab Ur NEG <=300 ng/mL [facility] Fentanyl, Urine NEG <=4 ng/mL [facility] LSD Ur NEG <=500 pg/mL [facility] Methadone Ur NEG <=300 ng/mL [facility] Opiate Ur NEG <=300 ng/mL [facility] Oxycodone Ur NEG <=100 ng/mL [facility] PCP Urine NEG <=25 ng/mL [facility] Propox Ur NEG <=300 ng/mL [facility] Salicylate Ur NEG <=10 mg/dL [facility] Creat Urine 178 >=20 mg/dL [facility] Mass Spectrometry Urine No other basic or neutral drugs found. [facility] Urine 10/04/2023 2:30 PM FISH TRAPPER 10/04/2023 2:45 PM FISH TRAPPER Magdaleno Arzate MD LABORATORY Performing Organization Address [facility] Co de Phone Number [facility] [address] [address] * RPR SYPHILIS SCREEN (10/04/2023 10:45 AM FISH TRAPPER) RPR Screen Non-Reactive Non-Reacti ve [facility] RPR Titer Not Reflexed [facility] Blood 10/04/2023 10:4 5 AM FISH TRAPPER 10/04/2023 11:25 AM FISH TRAPPER Minh Stephens MD LABORATORY Performing Organization Address [facility] de Phone Number [facility] [address] [address] * ED EKG (12-LEAD) (10/04/2023 8:38 AM FISH TRAPPER) 10/04/2023 8:38 AM FISH TRAPPER Impressions [facility] CVIS EKG ORDERS - 10/04/2023 8:38 AM FISH TRAPPER SINUS RHYTHM. NO SIGN OF ACUTE ISCHEMIA P-R Interval 188 ms QRS Interval 110 ms QT Interval 353 ms QTC Interval 381 ms P [place] 72 QRS [place] 61 T Wave [place] 69 Narrative Procedure Note Seth Salter MD - 10/04/2023 IMPRESSION SINUS RHYTHM. NO SIGN OF ACUTE ISCHEMIA P-R Interval 188 ms QRS Interval 110 ms QT Interval 353 ms QTC Interval 381 ms P [place] 72 QRS [place] 61 T Wave [place] 69 Minh Stephens MD EKG Performing Organization Address [facility] Co de Phone Number [facility] CVIS EKG ORDERS * VITAMIN [id number] TO MMA (10/04/2023 8:37 AM FISH TRAPPER) B12 646 211 - 946 pg/mL [facility] Blood 10/04/2023 8:37 AM FISH TRAPPER 10/04/2023 11:55 AM FISH TRAPPER Minh Stephens MD LABORATORY [facility] [address] [address] * (ABNORMAL) ED CHEMISTRY LABS(NA,K,CL,CO2,GLU,CREAT,CA-IONIZED,ANION GAP) (10/04/2023 8:37 AM FISH TRAPPER) Only the most recent of4 resultswithin the time period is included. Sodium 139 135 - 148 mEq/L [facility] Chloride 109(H) 92 - 108 mEq/L [facility] AnGap 9 8 - 16 mEq/L [facility] Glucose 82 70 - 100 mg/dL [facility] ICA, Actual 4.27(L) 4.40 - 5.20 mg/dL [facility] ICA, pH Corrected 4.29(L) 4.40 - 5.20 mg/dL [facility] Creatinine 0.57(L) 0.70 - 1.25 mg/dL [facility] BICARB 22 22 - 26 mEq/L [facility] eGFR (2020 CKD-EPI) >120 >=60 ml/min/1.7 3m2 [facility] Comment: The estimated glomerular filtration rate (eGFR) was calculated using the CKD-EPI 2020 creatinine equation, which does not include race as a factor. This equation is validated in individuals 18 years of age and older, and eGFR is normalized to a body surface area of 1.73m^2. Potassium 3.7 3.5 - 5.3 mEq/L [facility] Blood 10/04/2023 8:37 AM FISH TRAPPER 10/04/2023 8:44 AM FISH TRAPPER Minh Stephens MD LABORATORY [facility] [address] [address] * (ABNORMAL) CBC WITH PLTS/AUTO DIFF (10/04/2023 8:37 AM FISH TRAPPER) Only the most recent of3 resultswithin the time period is included. WBC 6.39 4.00 - 10.00 k/cmm [facility] RBC 3.82(L) 4.60 - 6.00 m/cmm [facility] Hgb 12.3(L) 13.1 - 17.5 g/dL [facility] Hematocrit 36.8(L) 40.0 - 51.0 % [facility] MCV 96.3 80.0 - 100.0 fL [facility] MCH 32.2(H) 25.0 - 32.0 pg [facility] MCHC 33.4 31.0 - 36.0 g/dL [facility] RDW 14.0 11.5 - 14.5 % [facility] Plt 234 150 - 400 k/cmm [facility] MPV 9.9 6.5 - 12.5 fL [facility] Automated Abs Neutrophil 3.83 1.70 - 6.50 k/cmm [facility] Comment:Preliminary ANC, Fin al Result to Follow Abs Immature Granulocyte 0.02 0.00 - 0.09 k/cmm [facility] Comment:The Immature Granulo cyte Absolute count contains metamyelocytes and myelocytes. Abs Neutrophil 3.83 1.70 - 6.50 k/cmm [facility] Abs Lymphocyte 1.68 0.80 - 4.00 k/cmm [facility] Abs Monocyte 0.64 0.20 - 1.00 k/cmm [facility] Abs Eosinophil 0.17 0.00 - 0.60 k/cmm [facility] Abs Basophil 0.05 0.00 - 0.20 k/cmm [facility] Blood 10/04/2023 8:37 AM FISH TRAPPER 10/04/2023 8:47 AM FISH TRAPPER Minh Stephens MD LABORATORY [facility] [address] [place] [id number] * AMMONIA (10/04/2023 8:37 AM FISH TRAPPER) Ammonia 29 16 - 60 mcmol/L [facility] Blood 10/04/2023 8:37 AM FISH TRAPPER 10/04/2023 8:46 AM FISH TRAPPER Narrative [facility] - 10/04/2023 9:18 AM FISH TRAPPER Send specimen on ice! Minh Stephens MD LABORATORY Performing Organization Address City/[facility] Co de Phone Number [facility] [address] [address] * PANEL HEPATIC FUNCTION (10/04/2023 8:37 AM FISH TRAPPER) Pathologist [facility] Total Protein 6.5 6.4 - 8.3 g/dL [facility] Albumin 4.0 3.8 - 5.1 g/dL [facility] Bili Total 0.6 <=1.2 mg/dL [facility] Bili Direct 0.2 <=0.3 mg/dL [facility] Alk Phos 83 40 - 129 IU/L [facility] ALT (SGPT) 29 <=41 IU/L [facility] AST(SGOT) 31 5 - 40 IU/L [facility] Blood 10/04/2023 8:37 AM FISH TRAPPER 10/04/2023 8:47 AM FISH TRAPPER Minh Stephens MD LABORATORY Performing Organization Address [facility] Co de Phone Number [facility] [address] [address] * LACTATE (LACTIC ACID) (10/04/2023 8:37 AM FISH TRAPPER) Only the most recent of4 resultswithin the time period is included. [facility] Lactate 1.3 0.7 - 2.1 mmol/L [facility] Blood 10/04/2023 8:37 AM FISH TRAPPER 10/04/2023 8:43 AM FISH TRAPPER Narrative [facility] - 10/04/2023 8:50 AM FISH TRAPPER Send specimen on ice! Minh Stephens MD LABORATORY Performing Organization Address City/[facility] Co de Phone Number [facility] [address] [address] * COVID/FLU COMBO (10/04/2023 6:50 AM FISH TRAPPER) Only the most recent of2 resultswithin the time period is included. Pathologist [facility] COVID-19 Not Detected Not Detected [facility] Comment: This test was developed and its performance characteristics determined by [facility] [employer]. This testing, RT-PCR, has been authorized by [...] specimens. Flu A Not Detected Not Detected [facility] Flu B Not Detected Not Detected [facility] Nasopharyngeal Swab 10/04/20 6:50 AM FISH TRAPPER 10/04/2023 6:52 AM FISH TRAPPER Narrative [facility] - 10/04/2023 7:15 AM FISH TRAPPER Must be PRODUCTION TECHNOLOGIST swab. ??COVID and Influenza testing can be completed on the same swab Sending tests other than COVID-19 and Influenza requires additional swab(s) Is the patient a healthcare employee: No Is the patient a [place] ([facility]) Employee: No Date of symptom onset: 09/30/23 If eligible is the patient interested in medication for treatment of COVID disease: Yes Minh Stephens MD LABORATORY [facility] [id number] [place] [address] * CT HEAD NO IV CONTRAST (09/25/2023 1:41 PM FISH TRAPPER) Only the most recent of2 resultswithin the time period is included. Anatomical Region Laterality Modality Skull Computed Tomogra phy 09/25/2023 1:26 PM FISH TRAPPER Impressions 09/25/2023 2:24 PM FISH TRAPPER Impression: 1. No acute intracranial pathology. 2. 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 Jack Traumatic Brain Injury Scale: Diffuse Injury 1 JACK DIAGNOSTIC CATEGORIES OF ABNORMALITIES VISUALIZED ON CT SCANNING FOR TRAUMATIC BRAIN INJURY: Diffuse Injury 1: No visible intracranial pathology seen on CT scan. Diffuse Injury 2: Cisterns are present with shift 0-5 mm and/or lesion densities present. No high or mixed density lesion >25ml. May include bone fragments and foreign bodies. Diffuse Injury 3 (swelling): Cisterns compressed or absent with shift 0-5mm. No high or mixed density lesion > 25ml. ? Diffuse Injury 4 (shift): Shift > 5mm. No high or mixed density lesion > 25ml. Evacuated mass lesion: Any surgically evacuated lesion. ?? Non evacuated mass lesion: High or mixed-density lesion > 25ml. Not surgically evacuated. I have personally reviewed the image(s) and initial interpretation, and I agree with the findings as documented by the resident/fellow. Reading Radiologist: Zheng Watkins Resident: Rudy Blanchard 09/25/2023 2:24 PM FISH TRAPPER Indication: new seizure ??. Comparison: none Technique: Axial thin section CT images through the brain were obtained from the base of the skull through the vertex without intravenous contrast and reviewed in brain, bone and subdural windows. Dose Total DLP = 1296.2 mGy.cm. ?? Findings: No evidence of mass effect. No intracranial hemorrhage. Chronic encephalomalacia of the anterior right temporal lobe and inferior right frontal lobe. No extraaxial fluid collection. The ventricles and sulci appear appropriate for age. No acute fracture. Chronic appearing left zygomatic arch fracture. Mucosal thickening throughout the maxillary sinuses which also appear mildly atelectatic.. Orbits appear unremarkable. Procedure Note Zheng Watkins MD - 09/25/2023 Indication: new seizure . Comparison: none Technique: Axial thin section CT images through the brain were obtainedfrom the base of the skull through the vertex without intravenous contrastand reviewed in brain, bone and subdural windows. Dose Total DLP = 1296.2 mGy.cm. Findings: No evidence of mass effect. No intracranial hemorrhage. Chronicencephalomalacia of the anterior right temporal lobe and inferior rightfrontal lobe. No extraaxial fluid collection. The ventricles and sulciappear appropriate for age. No acute fracture. Chronic appearing left zygomatic arch fracture. Mucosalthickening throughout the maxillary sinuses which also appear mildlyatelectatic.. Orbits appear unremarkable. IMPRESSION Impression: 1. No acute intracranial pathology. 2. Chronic appearing right frontal and temporal encephalomalacia, likelydue to previous head injury. Jack Traumatic Brain Injury Scale: Diffuse Injury 1 JACK DIAGNOSTIC CATEGORIES OF ABNORMALITIES VISUALIZED ON CT SCANNINGFOR TRAUMATIC BRAIN INJURY: Diffuse Injury 1: No visible intracranial pathology seen on CT scan. Diffuse Injury 2: Cisterns are present with shift 0-5 mm and/or lesiondensities present. No high or mixed density lesion >25ml. May include bonefragments and foreign bodies. Diffuse Injury 3 (swelling): Cisterns compressed or absent with shift0-5mm. No high or mixed density lesion > 25ml. Diffuse Injury 4 (shift): Shift > 5mm. No high or mixed density lesion >25ml. Evacuated mass lesion: Any surgically evacuated lesion. Non evacuated mass lesion: High or mixed-density lesion > 25ml. Notsurgically evacuated. I have personally reviewed the image(s) and initial interpretation, and Iagree with the findings as documented by the resident/fellow. Reading Radiologist: Zheng Watkins Reading Resident: Rudy Blanchard Kathy Lujan PA-C RAD CT NEURO * EXTRA TUBE - DARK GREEN (09/25/2023 12:40 PM FISH TRAPPER) Only the most recent of2 resultswithin the time period is included. DARK GREEN TUBE Stored [facility] Comment:Dark Green tubes (Li thium Heparin) are stored in the lab for 1 day from the collection date. Blood 09/25/2023 12:4 0 PM FISH TRAPPER 09/25/2023 1:01 PM FISH TRAPPER Outside Provider LABORATORY [facility] [address] [address] * EXTRA TUBE - LAVENDER (09/25/2023 12:40 PM FISH TRAPPER) LAVENDER TUBE Stored [facility] Comment:Lavendar (EDTA) tube s collected at [facility] are stored for 3 days from the collection date. Blood 09/25/2023 12:4 0 PM FISH TRAPPER 09/25/2023 1:01 PM FISH TRAPPER Outside Provider LABORATORY Performing Organization Address [facility] de Phone Number [address] [address] * EXTRA TUBE - KOCH (09/25/2023 12:40 PM FISH TRAPPER) KOCH TUBE Stored [facility] Comment:Koch top (Sodium erik uride) tubes are stored in the lab for 3 days from the collection date. Blood 09/25/2023 12:4 0 PM FISH TRAPPER 09/25/2023 1:01 PM FISH TRAPPER Outside Provider LABORATORY Performing Organization Address [facility] de Phone Number [address] [address] * EXTRA TUBE - BLUE (09/25/2023 12:40 PM FISH TRAPPER) BLUE TUBE [facility] Comment:Blue top(Sodium citr ate) tubes are kept for 3 days from the collection date. Blood 09/25/2023 12:4 0 PM FISH TRAPPER 09/25/2023 1:01 PM FISH TRAPPER Outside Provider LABORATORY Performing Organization Address [facility] de Phone Number [address] [address] * EXTRA TUBE - SST (09/25/2023 12:40 PM FISH TRAPPER) Only the most recent of2 resultswithin the time period is included. SST TUBE Stored [facility] Comment:SST tubes (Serum Sep arator) are stored in the lab for 3 days from the collection date. Blood 09/25/2023 12:4 0 PM FISH TRAPPER 09/25/2023 1:01 PM FISH TRAPPER Outside Provider LABORATORY [facility] [address] [place] [address] * ETHANOL (ETOH) LEVEL, BLOOD (09/25/2023 12:40 PM FISH TRAPPER) Only the most recent of2 resultswithin the time period is included. Ethanol Negative Negative g/dL [facility] Blood 09/25/2023 12:4 0 PM FISH TRAPPER 09/25/2023 2:17 PM FISH TRAPPER Kathy Lujan PA-C LABORATORY Performing Organization Address City/[facility] Co de Phone Number [facility] [address] [address] * XR HAND RIGHT 3 V PA/OBL/LAT* (08/23/2023 1:33 AM FISH TRAPPER) Anatomical Region Laterality Modality Hand Computed Radiogr aphy 08/23/2023 2:46 AM FISH TRAPPER Impressions 08/23/2023 5:57 AM FISH TRAPPER Impression: 1. No acute fractures or dislocation. 2. Query possible development of early erosions the distal interphalangeal joints of the third and fourth digits at the middle phalanx of each digit, recommend correlation with serologic markers for autoimmune arthropathy. I have personally reviewed the image(s) and initial interpretation, and I agree with the findings as documented by the resident/fellow. Reading Radiologist: Jerrod Austin Reading Resident: Idris Aviles Narrative 08/23/2023 5:57 AM FISH TRAPPER Technique: XR HAND RIGHT 3 V PA/OBL/LAT* Indication: Pain along 3rd metacarpal ?? Comparison: 03/29/2020 Findings: PA oblique and lateral views of the right hand are obtained. Chronic fracture deformity of the radial head along the articular surface appears healed from 03/29/2020. Query possible early development of erosions at the distal interphalangeal joints of the third and fourth digits along the middle phalanx. Procedure Note Jerrod Austin MD - 08/23/2023 Technique: XR HAND RIGHT 3 V PA/OBL/LAT* Indication: Pain along 3rd metacarpal Comparison: 03/29/2020 Findings: PA oblique and lateral views of the right hand are obtained.Chronic fracture deformity of the radial head along the articular surfaceappears healed from 03/29/2020. Query possible early development oferosions at the distal interphalangeal joints of the third and fourthdigits along the middle phalanx. IMPRESSION Impression: 1. No acute fractures or dislocation. 2. Query possible development of early erosions the distal interphalangealjoints of the third and fourth digits at the middle phalanx of each digit,recommend correlation with serologic markers for autoimmune arthropathy. I have personally reviewed the image(s) and initial interpretation, and Iagree with the findings as documented by the resident/fellow. Reading Radiologist: Jerrod Austin Reading Resident: Idris Aviles Rosaura Solis MD RAD XRAY * XR WRIST RIGHT 3+ PA/OB/LAT/ENEDINA* (08/23/2023 1:32 AM FISH TRAPPER) Anatomical Region Laterality Modality Hand Computed Radiogr aphy 08/23/2023 2:52 AM FISH TRAPPER Impressions 08/23/2023 5:57 AM FISH TRAPPER Impression: 1. Chronic fracture deformity of the distal right radius. 2. No acute fracture subluxation. I have personally reviewed the image(s) and initial interpretation, and I agree with the findings as documented by the resident/fellow. Reading Radiologist: Jerrod Austin Reading Resident: Idris Aviles Narrative 08/23/2023 5:57 AM FISH TRAPPER Technique: XR WRIST RIGHT 3+ PA/OB/LAT/ENEDINA* Indication: pain along 3rd metacarpal ?? Comparison: 03/29/2020 Findings: PA oblique lateral navicular views of the right wrist are obtained. No fracture or subluxation. Chronic fracture deformity of the distal right radius. Procedure Note Jerrod Austin MD - 08/23/2023 Technique: XR WRIST RIGHT 3+ PA/OB/LAT/ENEDINA* Indication: pain along 3rd metacarpal Comparison: 03/29/2020 Findings: PA oblique lateral navicular views of the right wrist areobtained. No fracture or subluxation. Chronic fracture deformity of thedistal right radius. IMPRESSION Impression: 1. Chronic fracture deformity of the distal right radius. 2. No acute fracture subluxation. I have personally reviewed the image(s) and initial interpretation, and Iagree with the findings as documented by the resident/fellow. Reading Radiologist: Jerrod Austin Reading Resident: Idris Aviles Rosaura Solis MD RAD XRAY * CT FACIAL BONES NO IV CON (08/22/2023 8:49 PM FISH TRAPPER) Anatomical Region Laterality Modality Skull Computed Tomogra phy 08/22/2023 9:04 PM FISH TRAPPER Impressions 08/22/2023 9:16 PM FISH TRAPPER Impression: No significant facial swelling. Age-indeterminate bilateral zygomatic arch fractures. Chronic healed fracture deformity of the left mandibular angle. Periapical lucency in the maxilla possibly related to periapical dental disease. Missing left mandibular central incisor.. Reading Radiologist: Brigitte Smith Narrative 08/22/2023 9:16 PM FISH TRAPPER Indication: ??facial trauma, broken teeth ??. Comparison: ??11/04/2019 ?? Technique:Using thin collimation multidetector helical acquisition technique, axial and coronal thin section CT images were reconstructed through the facial bones. Images were reviewed in bone and soft tissue windows. Dose Total DLP = 225 mGy.cm. ?? Findings: ??There is no significant soft tissue swelling of the face. Age-indeterminate fractures with depression of the zygomatic arches with more significant comminution and depression of the left. No significant associated soft tissue swelling. The cribriform plate appears intact. Age-indeterminate nasal bone fractures. Orbits are intact. Chronic healed fracture deformity of the left mandibular angle. The temporomandibular joints appear in good position. There is no hematoma, soft tissue mass or gas visualized within the orbits. Review of visualized dentition does not reveal ??significant periapical dental disease. The visualized portions of the paranasal sinuses demonstrate diffuse mucosal thickening in the maxillary sinuses and right frontal sinus as well as mild mucosal thickening in the ethmoid air cells as well as in the right sphenoid locule. Periapical lucencies in the maxilla likely periapical cysts related to periodontal disease. Missing left mandibular central incisor, likely from recent avulsion. Procedure Note Brigitte Smith MD - 08/22/2023 Indication: facial trauma, broken teeth . Comparison: 11/04/2019 Technique:Using thin collimation multidetector helical acquisitiontechnique, axial and coronal thin section CT images were reconstructedthrough the facial bones. Images were reviewed in bone and soft tissuewindows. Dose Total DLP = 225 mGy.cm. Findings: There is no significant soft tissue swelling of the face.Age- indeterminate fractures with depression of the zygomatic arches withmore significant comminution and depression of the left. No significantassociated soft tissue swelling. The cribriform plate appears intact.Age-indeterminate nasal bone fractures. Orbits are intact. Chronic healedfracture deformity of the left mandibular angle. The temporomandibularjoints appear in good position. There is no hematoma, soft tissue mass or gas visualized within theorbits. Review of visualized dentition does not reveal significantperiapical dental disease. The visualized portions of the paranasalsinuses demonstrate diffuse mucosal thickening in the maxillary sinusesand right frontal sinus as well as mild mucosal thickening in the ethmoidair cells as well as in the right sphenoid locule. Periapical lucencies inthe maxilla likely periapical cysts related to periodontal disease.Missing left mandibular central incisor, likely from recent avulsion. IMPRESSION Impression: No significant facial swelling. Age-indeterminate bilateralzygomatic arch fractures. Chronic healed fracture deformity of the leftmandibular angle. Periapical lucency in the maxilla possibly related toperiapical dental disease. Missing left mandibular central incisor.. Reading Radiologist: Brigitte Smith Rosaura Solis MD RAD CT NEURO * CT SPINE CERVICAL NO IV CON (08/22/2023 8:48 PM FISH TRAPPER) Anatomical Region Laterality Modality Cervical Spine Computed Tomogra phy 08/22/2023 8:49 PM FISH TRAPPER Impressions 08/22/2023 9:04 PM FISH TRAPPER Impression: ?? 1. No acute fracture or subluxation of the cervical vertebrae. 2. Mild multilevel degenerative disc disease, most significantly at C6-7. I have personally reviewed the image(s) and initial interpretation, and I agree with the findings as documented by the resident/fellow. Reading Radiologist: Brigitte Smith Reading Resident: Seth Brito 08/22/2023 9:04 PM FISH TRAPPER Exam: Cervical spine CT without contrast, Indication: ams ??. Comparison: ??None. Technique: Using multidetector thin collimation helical acquisition technique, axial, coronal and sagittal reconstructed CT images were obtained through the cervical spine without intravenous contrast. Images were reviewed in bone and soft tissue windows. Dose: Total DLP = 248 mGy.cm. ?? Findings: There is no evidence of acute fracture or significant prevertebral soft tissue swelling. The lateral masses of C1 appear normally aligned on C2. Mild rotation of C1 on C2 related to head position. The normal cervical lordotic curvature is preserved. Alignment of the cervical spine appears intact. There is mild disc space narrowing C4-5, C5-6 and C6-7 with associated osteophytic spurring. 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 ?? Axial images demonstrate mild right uncinate facet arthropathy at C3-4 resulting in mild neuroforamen narrowing. Similar finding at C4-5. At C6-7 there is uncinate and facet hypertrophy and posterior osteophytic spurring resulting in moderate bilateral neuroforamen narrowing. No significant spinal canal or neural foraminal narrowing at any level. Visualized paraspinous tissues are unremarkable. Procedure Note Brigitte Smith MD - 08/22/2023 Exam: Cervical spine CT without contrast, Indication: ams . Comparison: None. Technique: Using multidetector thin collimation helical acquisitiontechnique, axial, coronal and sagittal reconstructed CT images wereobtained through the cervical spine without intravenous contrast. Imageswere reviewed in bone and soft tissue windows. Dose: Total DLP = 248 mGy.cm. Findings: There is no evidence of acute fracture or significantprevertebral soft tissue swelling. The lateral masses of C1 appearnormally aligned on C2. Mild rotation of C1 on C2 related to headposition. The normal cervical lordotic curvature is preserved. Alignmentof the cervical spine appears intact. There is mild disc space narrowingC4-5, C5-6 and C6-7 with associated osteophytic spurring. Nonunion of thering apophyses at C4, C5 and C6. Axial images demonstrate mild right uncinate facet arthropathy at C3-4resulting in mild neuroforamen narrowing. Similar finding at C4-5. At C6-7there is uncinate and facet hypertrophy and posterior osteophytic spurringresulting in moderate bilateral neuroforamen narrowing. No significantspinal canal or neural foraminal narrowing at any level. Visualized paraspinous tissues are unremarkable. IMPRESSION Impression: 1. No acute fracture or subluxation of the cervical vertebrae. 2. Mild multilevel degenerative disc disease, most significantly atC6-7. I have personally reviewed the image(s) and initial interpretation, and Iagree with the findings as documented by the resident/fellow. Reading Radiologist: Brigitte Smith Reading Resident: Seth Brito Rosaura Solis MD RAD CT NEURO * XR CHEST 2 VIEWS PA + LAT* (07/24/2023 1:06 AM CDT) Anatomical Region Laterality Modality Chest Computed Radiogr aphy 07/24/2023 2:41 AM CDT Impressions 07/24/2023 7:10 AM CDT Impression: No acute cardiopulmonary findings. I have personally reviewed the image(s) and initial interpretation, and I agree with the findings as documented by the resident/fellow. Reading Radiologist: Srini Cardona Reading Resident: Jj Benites 07/24/2023 7:10 AM CDT Technique: XR CHEST 2 VIEWS PA + LAT* Indication: cough, SOB ?? Comparison: CT 02/27/2023 Findings: PA and lateral views of the chest. Trachea is midline. Stable cardiac mediastinal silhouette. No consolidation. No pleural effusion or pneumothorax. No acute osseous abnormalities. Procedure Note Srini Cardona MBBS - 07/24/2023 Technique: XR CHEST 2 VIEWS PA + LAT* Indication: cough, SOB Comparison: CT 02/27/2023 Findings: PA and lateral views of the chest. Trachea is midline. Stablecardiac mediastinal silhouette. No consolidation. No pleural effusion orpneumothorax. No acute osseous abnormalities. IMPRESSION Impression: No acute cardiopulmonary findings. I have personally reviewed the image(s) and initial interpretation, and Iagree with the findings as documented by the resident/fellow. Reading Radiologist: Srini Cardona Resident: Jj Benites Sergei Grajeda MD RAD XRAY from Last 3 Months Advance Directives For more information, please contact: [phone] Latest Code Status on File Code Status Date Activated Date Inactivated Comments Full Code 10/04/2023 12:06 PM 10/05/2023 5:03 PM Question Answer Comments Does the Patient have prefer ences regarding life sustaining measures (these options only apply when the patient has a pulse): No Discussed Code Status With Whom? Patient Code Status History Code Status Date Activated Date Inactivated Comments Full Code 02/27/2023 6:19 PM 02/28/2023 7:42 PM Question Answer Comments Does the Patient have prefer ences regarding life sustaining measures (these options only apply when the patient has a pulse): No Discussed Code Status With Whom? Patient Full Code 02/27/2023 12:34 PM 02/27/2023 6:19 PM Question Answer Comments Does the Patient have prefer ences regarding life sustaining measures (these options only apply when the patient has a pulse): No Discussed Code Status With Whom? Not discussed Full Code 11/23/2019 4:34 AM 11/27/2019 8:01 PM Question Answer Comments Does the Patient have prefer ences regarding life sustaining measures (these options only apply when the patient has a pulse): No Discussed Code Status With Whom? Not discussed Health Care Directive and/or Previous Code/End of Life Pref Reviewed? Yes Full Code 12/06/2013 8:52 AM 11/02/2018 9:54 PM Question Answer Comments Discussed Code Status With Whom? Not discussed Care Teams Mannequin Mounter Relationship Specialty Start Date End Date Pcp, [place] [address] PCP - General 08/31/14
--- OUTSIDE RECORDS SUMMARY | 2023-10-19 17:29 | XMS_ITS | Encounter Summary ---
Author Name Unknown Organization [facility] Address [address] [place] [address] Phone Care Team Providers Care Access Services Assistant Name Role Phone Pcp, No Primary Care Provider Unavailabl e Jose Armando Morales MDIV Unavailable Unavail able Encounter Details Date Type Department Care Team Description 09/18/2023 Travel Social History Tobacco Use Types Packs/Day Years Used Date Smoking Tobacco: Every Day Cigarettes 0.5 Started: 1984 Smokeless Tobacco: Current [...] suspected to have Coronavirus/COVID-19? No / Unsure 09/18/2023 9:05 PM HEEL LIFT GOUGER documented as of this encounter Plan of Treatment Upcoming Encounters Date Type Department Care Team Description 10/26/2023 10:40 AM HEEL LIFT GOUGER Office Visit [facility] [address] [place] [address] Fina Shultz MD [address] [place], [place] [id number] Pre Sales Technical Engineer, [facility] Lithuanian Scheduled Discharge Disposition: Discharged to home or self care (routine discharge) 10/31/2023 12:00 PM HEEL LIFT GOUGER Appointment [facility] [address] [facility] [address] [place], [place] [id number] [phone] 1, Eeg - Outpatient 2, Isd-Lithuanian [address] [place] [address] Scheduled Discharge Disposition: Discharged to home or self care (routine discharge) documented as of this encounter Visit Diagnoses Not on filedocumented in this encounter Care Teams Access Services Assistant Relationship Specialty Start Date End Date Pcp, [place] [address] PCP - General 08/31/14 Jose Armando Morales MDIV [address] [place] [address] Fast Food Shift Supervisor 02/28/23 10/03/23 documented as of this encounter
--- OUTSIDE RECORDS SUMMARY | 2023-10-19 17:29 | XMS_ITS | Encounter Summary ---
Author Name Unknown Organization [facility] Address [address] [facility] [place] [address] Phone Care Team Providers Care Sponge Press Operator Name Role Phone Pcp, No Primary [...] Coronavirus/COVID-19? No / Unsure 10/04/2023 6:06 AM COOLING TOWER TECHNICIAN documented as of this encounter Plan of Treatment Upcoming Encounters Date Type Department Care Team Description 10/26/2023 10:40 AM COOLING TOWER TECHNICIAN Office Visit [facility] [address] [place] [address] Fina Shultz MD [address] [place], [place] [id number] Farm Hand, [facility] Bulgarian Scheduled Discharge Disposition: Discharged to home or self care (routine discharge) 10/31/2023 12:00 PM COOLING TOWER TECHNICIAN Appointment [facility] [address] [facility] [address] [place], [place] [phone] 1, Eeg - Outpatient 2, Isd-Bulgarian [address] [place] [address] Scheduled Discharge Disposition: Discharged to home or self care (routine discharge) documented as of this encounter Procedures Procedure Name Priority Date/Time Associated Diagnosis Comments TELEMETRY STRIPS 10/04/2023 3:31 PM COOLING TOWER TECHNICIAN documented in this encounter Results * TELEMETRY STRIPS (10/04/2023 3:31 PM COOLING TOWER TECHNICIAN) Narrative 10/04/2023 3:31 PM COOLING TOWER TECHNICIAN Ordered by an unspecified provider. Provider Unknown RAD ECHO documented in this encounter Visit Diagnoses Not on filedocumented in this encounter Additional Health Concerns Infection Onset Date Last Indicated Resolved Time SARS-CoV-2 Rule-Out 10/04/2023 10/04/2023 10/04/20 7:15 AM COOLING TOWER TECHNICIAN documented as of this encounter Care Teams Sponge Press Operator Relationship Specialty Start Date End Date Pcp, [place] [address] PCP - General 08/31/14 documented as of this encounter
--- OUTSIDE RECORDS SUMMARY | 2023-10-19 17:29 | XMS_ITS | Encounter Summary ---
Author Name Unknown Organization [facility] Address [address] [place] [address] Phone Care Team Providers Care Manager Technology Name Role Phone Pcp, No Primary Care [...] Coronavirus/COVID-19? No / Unsure 10/04/2023 6:06 AM HOT FRAME TENDER documented as of this encounter Plan of Treatment Upcoming Encounters Date Type Department Care Team Description 10/26/2023 10:40 AM HOT FRAME TENDER Office Visit [facility] [address] [place] [address] Fina Shultz MD [address] [place], [place] [address] Control Inspector, [facility] Eritrean Scheduled Discharge Disposition: Discharged to home or self care (routine discharge) 10/31/2023 12:00 PM HOT FRAME TENDER Appointment [facility] [address] [facility] [address] [place], [place] [phone] 1, Eeg - Outpatient 2, Isd-Eritrean [address] [place] [address] Scheduled Discharge Disposition: Discharged to home or self care (routine discharge) documented as of this encounter Procedures Procedure Name Priority Date/Time Associated Diagnosis Comments TELEMETRY STRIPS 10/04/2023 8:19 PM HOT FRAME TENDER documented in this encounter Results * TELEMETRY STRIPS (10/04/2023 8:19 PM HOT FRAME TENDER) Narrative 10/04/2023 8:19 PM HOT FRAME TENDER Ordered by an unspecified provider. Provider Unknown RAD ECHO documented in this encounter Visit Diagnoses Not on filedocumented in this encounter Additional Health Concerns Infection Onset Date Last Indicated Resolved Time SARS-CoV-2 Rule-Out 10/04/2023 10/04/2023 10/04/20 7:15 AM HOT FRAME TENDER documented as of this encounter Care Teams Manager Technology Relationship Specialty Start Date End Date Pcp, No [place] [address] PCP - General 08/31/14 documented as of this encounter
--- OUTSIDE RECORDS SUMMARY | 2023-10-19 17:29 | XMS_ITS | Encounter Summary ---
Author Name Unknown Organization [facility] Address [address] [facility] [place] [address] Phone Care Team Providers Care Clinical Psychology Professor Name Role Phone Pcp, No Primary Care [...] Coronavirus/COVID-19? No / Unsure 10/04/2023 6:06 AM MOTORIZED SQUAD COMMANDING OFFICER documented as of this encounter Plan of Treatment Upcoming Encounters Date Type Department Care Team Description 10/26/2023 10:40 AM MOTORIZED SQUAD COMMANDING OFFICER Office Visit [facility] [address] [place] [address] Fina Shultz MD [address] [place], [place] [address] Cage Supervisor, [facility] Comoran Scheduled Discharge Disposition: Discharged to home or self care (routine discharge) 10/31/2023 12:00 PM MOTORIZED SQUAD COMMANDING OFFICER Appointment [facility] [address] [facility] [address] [place], [place] [phone] 1, Eeg - Outpatient 2, Isd-[place]an [address] [place] [address] Scheduled Discharge Disposition: Discharged to home or self care (routine discharge) documented as of this encounter Procedures Procedure Name Priority Date/Time Associated Diagnosis Comments TELEMETRY STRIPS 10/04/2023 3:08 PM MOTORIZED SQUAD COMMANDING OFFICER documented in this encounter Results * TELEMETRY STRIPS (10/04/2023 3:08 PM MOTORIZED SQUAD COMMANDING OFFICER) Narrative 10/04/2023 3:08 PM MOTORIZED SQUAD COMMANDING OFFICER Ordered by an unspecified provider. Provider Unknown RAD ECHO documented in this encounter Visit Diagnoses Not on filedocumented in this encounter Additional Health Concerns Infection Onset Date Last Indicated Resolved Time SARS-CoV-2 Rule-Out 10/04/2023 10/04/2023 10/04/20 7:15 AM MOTORIZED SQUAD COMMANDING OFFICER documented as of this encounter Care Teams Clinical Psychology Professor Relationship Specialty Start Date End Date Pcp, No [place] [address] PCP - General 08/31/14 documented as of this encounter
--- OUTSIDE RECORDS SUMMARY | 2023-10-19 17:29 | XMS_ITS | Encounter Summary ---
Author Name Unknown Organization [facility] Address [address] [place] [address] Phone Care Team Providers Care Service Employee Name Role Phone Pcp, No Primary Care Provider Unavailabl e Jose Armando Morales MDIV Unavailable Unavail able Encounter Details Date Type Department Care Team Description 09/16/2023 Travel Social History Tobacco Use Types Packs/Day [...] suspected to have Coronavirus/COVID-19? No / Unsure 09/16/2023 4:50 PM DECK CADET documented as of this encounter Plan of Treatment Upcoming Encounters Date Type Department Care Team Description 10/26/2023 10:40 AM DECK CADET Office Visit [facility] [address] [place] [address] Fina Shultz MD [address] [place], [place] [address] Clinical Application Manager, [facility] Ukrainian Scheduled Discharge Disposition: Discharged to home or self care (routine discharge) 10/31/2023 12:00 PM DECK CADET Appointment [facility] [address] [facility] [address] [place], [place] [phone] 1, Eeg - Outpatient 2, Isd-Ukrainian [address] [place] [address] Scheduled Discharge Disposition: Discharged to home or self care (routine discharge) documented as of this encounter Visit Diagnoses Not on filedocumented in this encounter Care Teams Service Employee Relationship Specialty Start Date End Date Pcp, [place] [address] PCP - General 08/31/14 Jose Armando Morales MDIV [address] [place] [address] Research And Development Director 02/28/23 10/03/23 documented as of this encounter
--- OUTSIDE RECORDS SUMMARY | 2023-10-19 17:29 | XMS_ITS | Encounter Summary ---
Author Name Unknown Organization [facility] Address [address] [place] [address] Phone Care Team Providers Care Medical Services Assistant Name Role Phone Pcp, No [...] Coronavirus/COVID-19? No / Unsure 10/04/2023 6:06 AM PRODUCT DEVELOPMENT COORDINATOR documented as of this encounter Plan of Treatment Upcoming Encounters Date Type Department Care Team Description 10/26/2023 10:40 AM PRODUCT DEVELOPMENT COORDINATOR Office Visit [facility] [address] [place] [address] Fina Shultz MD [address] [place], [place] [address] Hog Pusher, [facility] Turkmen Scheduled Discharge Disposition: Discharged to home or self care (routine discharge) 10/31/2023 12:00 PM PRODUCT DEVELOPMENT COORDINATOR [place] [facility] [address] [facility] [address] [place], [place] [phone] 1, Eeg - Outpatient 2, Isd-Turkmen [address] [place] [address] Scheduled Discharge Disposition: Discharged to home or self care (routine discharge) documented as of this encounter Procedures Procedure Name Priority Date/Time Associated Diagnosis Comments TELEMETRY STRIPS 10/04/2023 3:24 PM PRODUCT DEVELOPMENT COORDINATOR documented in this encounter Results * TELEMETRY STRIPS (10/04/2023 3:24 PM PRODUCT DEVELOPMENT COORDINATOR) Narrative 10/04/2023 3:24 PM PRODUCT DEVELOPMENT COORDINATOR Ordered by an unspecified provider. Provider Unknown RAD ECHO documented in this encounter Visit Diagnoses Not on filedocumented in this encounter Additional Health Concerns Infection Onset Date Last Indicated Resolved Time SARS-CoV-2 Rule-Out 10/04/2023 10/04/2023 10/04/20 7:15 AM PRODUCT DEVELOPMENT COORDINATOR documented as of this encounter Care Teams Medical Services Assistant Relationship Specialty Start Date End Date Pcp, [place] [address] PCP - General 08/31/14 documented as of this encounter
--- OUTSIDE RECORDS SUMMARY | 2023-10-19 17:29 | XMS_ITS | Encounter Summary ---
Author Name Unknown Organization [facility] Address [address] [place] [address] Phone Care Team Providers Care Ore Tester Name Role Phone Pcp, No Primary Care [...] Coronavirus/COVID-19? No / Unsure 10/04/2023 6:06 AM CELLAR PUMPER documented as of this encounter Plan of Treatment Upcoming Encounters Date Type Department Care Team Description 10/26/2023 10:40 AM CELLAR PUMPER Office Visit [facility] [address] [place] [address] Fina Shultz MD [address] [place], [place] [address] Warehouse Laborer, [facility] Peruvian Scheduled Discharge Disposition: Discharged to home or self care (routine discharge) 10/31/2023 12:00 PM CELLAR PUMPER Appointment [facility] [address] [facility] [address] [place], [place] [phone] 1, Eeg - Outpatient 2, Isd-Peruvian [address] [place] [address] Scheduled Discharge Disposition: Discharged to home or self care (routine discharge) documented as of this encounter Procedures Procedure Name Priority Date/Time Associated Diagnosis Comments TELEMETRY STRIPS 10/04/2023 8:21 PM CELLAR PUMPER documented in this encounter Results * TELEMETRY STRIPS (10/04/2023 8:21 PM CELLAR PUMPER) Narrative 10/04/2023 8:21 PM CELLAR PUMPER Ordered by an unspecified provider. Provider Unknown RAD ECHO documented in this encounter Visit Diagnoses Not on filedocumented in this encounter Additional Health Concerns Infection Onset Date Last Indicated Resolved Time SARS-CoV-2 Rule-Out 10/04/2023 10/04/2023 10/04/20 7:15 AM CELLAR PUMPER documented as of this encounter Care Teams Ore Tester Relationship Specialty Start Date End Date Pcp, [place] [address] PCP - General 08/31/14 documented as of this encounter
--- OUTSIDE RECORDS SUMMARY | 2023-10-19 17:29 | XMS_ITS | Encounter Summary ---
Author Name Unknown Organization [facility] Address [address] [place] [address] Phone Care Team Providers Care Hollow Handle Knife Assembler Name Role Phone Pcp, No Primary Care [...] Coronavirus/COVID-19? No / Unsure 10/04/2023 6:06 AM SHRIMP PACKER documented as of this encounter Plan of Treatment Upcoming Encounters Date Type Department Care Team Description 10/26/2023 10:40 AM SHRIMP PACKER Office Visit [facility] [address] [place] [address] Fina Shultz MD [address] [place], [place] [address] Loss Mitigation Specialist, [facility] Sri Lankan Scheduled Discharge Disposition: Discharged to home or self care (routine discharge) 10/31/2023 12:00 PM SHRIMP PACKER Appointment [facility] [address] [facility] [address] [place], [place] [phone] 1, Eeg - Outpatient 2, Isd-Sri Lankan [address] [place] [address] Scheduled Discharge Disposition: Discharged to home or self care (routine discharge) documented as of this encounter Procedures Procedure Name Priority Date/Time Associated Diagnosis Comments TELEMETRY STRIPS 10/04/2023 7:22 PM SHRIMP PACKER documented in this encounter Results * TELEMETRY STRIPS (10/04/2023 7:22 PM SHRIMP PACKER) Narrative 10/04/2023 7:22 PM SHRIMP PACKER Ordered by an unspecified provider. Provider Unknown RAD ECHO documented in this encounter Visit Diagnoses Not on filedocumented in this encounter Additional Health Concerns Infection Onset Date Last Indicated Resolved Time SARS-CoV-2 Rule-Out 10/04/2023 10/04/2023 10/04/20 7:15 AM SHRIMP PACKER documented as of this encounter Care Teams Hollow Handle Knife Assembler Relationship Specialty Start Date End Date Pcp, [place] [address] PCP - General 08/31/14 documented as of this encounter
--- OUTSIDE RECORDS SUMMARY | 2023-10-19 17:29 | XMS_ITS | Encounter Summary ---
Author Name Unknown Organization [facility] Address [address] [place] [address] Phone Care Team Providers Care Global Security Architect Name Role Phone Pcp, No Primary Care Provider Unavailabl e Jose Armando Morales MDIV Unavailable Unavail able Encounter Details Date Type Department Care Team Description 09/25/2023 Travel Social History Tobacco Use Types Packs/Day Years Used Date Smoking Tobacco: Never Assessed Sex and Gender Information Value Date Recorded Sex Assigned at Not on file Gender Identity Not on file Sexual Orientation Not on file COVID-19 Exposure Response Date Recorded In the last 10 days, have yo u been in contact with someone who was confirmed or suspected to have Coronavirus/COVID-19? No / Unsure 09/25/2023 12:38 PM DEVELOPMENT INTERN documented as of this encounter Plan of Treatment Upcoming Encounters Date Type Department Care Team Description 10/26/2023 10:40 AM DEVELOPMENT INTERN Office Visit [facility] [place] [address] [place], [place] [phone] Fina Shultz MD [address] [place], [place] [phone] Resolution Rep, [facility] Paraguayan Scheduled Discharge Disposition: Discharged to home or self care (routine discharge) 10/31/2023 12:00 PM DEVELOPMENT INTERN Appointment [facility] [address] [facility] [address] [place] [address] 1, Eeg - Outpatient 2, Isd-Paraguayan [address] [place] [address] Scheduled Discharge Disposition: Discharged to home or self care (routine discharge) documented as of this encounter Visit Diagnoses Not on filedocumented in this encounter Care Teams Global Security Architect Relationship Specialty Start Date End Date Pcp, No [place] [address] PCP - General 08/31/14 Jose Armando Morales MDIV [address] [place] [address] Athletic Scout 02/28/23 10/03/23 documented as of this encounter
--- OUTSIDE RECORDS SUMMARY | 2023-10-19 17:29 | XMS_ITS | Encounter Summary ---
Author Name Unknown Organization [facility] Address [address] [place] [address] Phone Care Team Providers Care Boiler Repair Supervisor Name Role Phone Pcp, No Primary Care Provider Unavailabl e Jose Armando Morales MDIV Unavailable Unavail able Reason for Visit * Reason Comments Medication Refill Encounter Details Date Type Department Care Team Description 09/30/2023 11:36 PM SENIOR LITIGATION PARALEGAL - 10/01/2023 12:48 AM SENIOR LITIGATION PARALEGAL Emergency [facility] Emergency Department [address] [facility] [address] [place], [place] [address] Elizabeth Chino MD [address] [place] [address] Discharge Disposition: Discharged to home or self [...] suspected to have Coronavirus/COVID-19? No / Unsure 09/30/2023 11:39 PM SENIOR LITIGATION PARALEGAL documented as of this encounter Last Filed Vital Signs Vital Sign Reading Time Taken Comments Blood Pressure 148/94 09/30/2023 11:38 PM SENIOR LITIGATION PARALEGAL Pulse 114 09/30/2023 11:38 PM SENIOR LITIGATION PARALEGAL Temperature 36.9 ??C (98.4 ??F) 09/30/2023 11:[address] Respiratory Rate 18 09/30/2023 11:38 PM SENIOR LITIGATION PARALEGAL Oxygen Saturation 98% 09/30/2023 11:38 PM SENIOR LITIGATION PARALEGAL Inhaled Oxygen Concentration - - Weight - - Height - - Body Mass Index - - documented in this encounter Discharge Instructions * Discharge Instructions* Ly Marinelli PA-C - 10/01/2023 12:11 AM SENIOR LITIGATION PARALEGAL Please take your medications as prescribed. Follow up with your primary care physician for further evaluation in the next few days. If you do not have a regular doctor or cannot get in to see your doctor, you can make an appointment with the internal medicine acute care clinic. Return to the ED if your pain or other symptoms worsen or if you experience new symptoms. OR LITIGATION PARALEGAL documented in this encounter Medications at Time of Discharge Medication Sig Dispensed Refills Start Date End Date chlorhexidine (PERIDEX) 0.12% mouth/throat solution Swish and spit 1/2 of an ounce (15 mL) by mouth twice daily for 30 seconds. Do not eat or drink for 30 minutes after use. 473 mL 0 09/16/2023 10/04/2023 azithromycin (ZITHROMAX) 250 mg oral TABS Take 500 mg (2 tablets) once, then 250 mg (1 tablet) by mouth daily for 4 days. 6 tablet 0 07/24/2023 10/04/2023 benzonatate (TESSALON) 100 mg oral capsule Take 1 capsule (100 mg) by mouth 3 times daily as needed for Cough. 15 capsule 0 07/24/2023 10/04/2023 ERGOcalciferol (VITAMIN D) 50,000 UNITS oral capsule Take 1 capsule (50,000 UNITS) by mouth every week. 8 capsule 0 03/07/2023 10/04/2023 naltrexone (REVIA) 50 mg oral TABSIndications:Alcoho l Use Disorder Take 1 tablet (50 mg) by mouth daily. Indications: Abuse or Misuse of Alcohol 30 tablet 0 02/28/2023 10/04/2023 nicotine polacrilex (COMMIT) 2 mg mouth/throat lozengeIndications:Tenzin otine Dependence Dissolve 1 lozenge (2 mg) in mouth every 1 hour as needed for nicotine craving. 72 lozenge 0 02/28/2023 10/04/2023 sertraline (ZOLOFT) 50 mg oral tablet Take 1 tablet (50 mg) by mouth daily. 0 01/22/2023 10/04/2023 acetaminophen 325 mg oral tablet Take 1-2 tablets (325-650 mg) by mouth every four hours as needed for Mild Pain or Moderate Pain. 40 tablet 0 03/29/2020 10/04/2023 documented as of this encounter ED Notes * Sonali Ivy LSW - 10/01/2023 12:42 AM CST Triage spoke with JESSY about patient needing transportation home. did a taxi ride estimate and it was over 100 dollars. JESSY informed patient that they are not able to provide transportation and offered the patient a bus token. The patient refused the bus token and threw it back at . Security was contacted. Sonali Ivy LSW, 10/01/2023 12:45 AM OR LITIGATION PARALEGAL * Ly Marinelli PA-C - 10/01/2023 12:11 AM CST Images from the original note were not included. ED Provider Note Dixie Smith : 1985 Sex: male Patient Arrival Date and Time: 09/30/2023 11:36 PM HPI Dixie Smith is a/an 37 y.o. year old male with a pertinent past medical history of . Vitamin D deficiency, homelessness, alcohol abuse presenting to the emergency department with request for medication refill. Patient provided his own past medical history tonight. He reports that he has had some drinks tonight. When I asked him how many he tells me he does not know. He tells me he came herebecause he wants us to assist him to get home. He reports he has a place to stay. He tells me that sometimes when he drinks he falls but he has not had any falls today. He reports he otherwise feels well. When asked about his request for medication refill he says that he no longer needs this. Patient denies any chest pain, abdominal pain. MDM / ED Course 37 y.o. male who presents with initially medication refill request which then turned into request for transportation Ddx includes, but is not limited to: Alcohol intoxication, alcohol withdrawal, social needs, medication refill Patient found in room in no acute distress. Vitals as below. HPI as above. Physical exam patient provides own past medical history. He is alert and oriented x 3. He can tell me his name, birthdate, and that he is at the hospital. He is able to ambulate without difficulty. He is eating and drinking. He initially reported that he wanted a medication refill however when I asked him about this he denied this request. He tells me he just wants me to get him a ride. He does report he has been drinking today although he is clinically sober given the above. I had social work assist and try to get himhome. He request no other medical care tonight and would like to go home. No chest pain. No palpitat ions. No concern for PE or ACS. Patient was discharged. He is dressed appropriately for weather andgiven a bus token. Information from patient's chart, including past medical hx, family hx, social hx, nursing/triage notes, outside records, and current prescription medications, were reviewed and subsequently aided the formation of the final assessment and plan. Patient deemed to be medically stable for discharge given pt is well-appearing, and ambulating appropriately. No acute life or limb-threatening condition found requiring hospitalization at this time. Patient discharged from ED and encouraged to follow up with primary doctor or acute care clinic forrecheck and ongoing routine care. Patient to return to the ER for any worsening or concerning symptoms. Patient verbalizes understanding and is in agreement with this plan. All questions answered at time of discharge. Patient discharged in stable condition. Problems Addressed / DDx 1 stable chronic illness Data considered External notes reviewed and summarized and Additional tests considered but not ordered Risk of patient management Diagnosis or treatment significantly limited by social determinants of health IMPRESSION 1. Alcohol abuse BP 148/94 (Cuff Location: Left Arm, Patient Position: Sitting) Pulse (!) 114 Temp 36.9 ??C (98.4 ??F) (Oral) Resp 18 SpO2 98% Physical Exam: GENERAL: Pleasant, cooperative, non-toxic appearing INTEGUMENT: warm and moist, no rashes appreciated Head: No concepcion signs. No abrasions or contusions. No obvious deformities. No tenderness. EYES: Pupils are equal, round and reactive to light, no conjunctival injection or scleral icterus, normal lids/lacrimals/lashes MOUTH/THROAT: Uvula midline. Tonsils WNL. No tongue or lip swelling. Teeth intact. No trismus. Oralmucosa appear normal upon inspection. No tongue fasciculations. NECK: supple, no lymphadenopathy LUNGS: Sounds clear throughout. No rales, No wheezing. Breathing non-labored No retractions or accessory muscle use CV: Normal S1-S2. Mild tachycardia. No murmurs. Peripheral/Vascular: distal pulses 2+, cap refill <2s, no pitting edema ABDOMEN: Bowel sound present throughout. No fluid wave. No ecchymosis. Soft, non-tender. No rigidity. No distension. No pulsating mass NEURO: AOX3, gait smooth and coordinated, CN 2-12 intact, no focal neurological deficits, 5+ strength upper and lower extremities. No tremors. Labs Resulted Before Time of ED Departure - No data to display No orders to display Ly Marinelli PA-C OR LITIGATION PARALEGAL * Nohelia Chan RN - 09/30/2023 11:42 PM CST Pt states he wants a refill of a sleeping medicine. Unsure name of medication. BP 148/94 (Cuff Location: Left Arm, Patient Position: Sitting) Pulse (!) 114 Temp 36.9 ??C (98.4 ??F) (Oral) Resp 18 SpO2 98% OR LITIGATION PARALEGAL documented in this encounter Plan of Treatment Upcoming Encounters Date Type Department Care Team Description 10/26/2023 10:40 AM SENIOR LITIGATION PARALEGAL Office Visit [facility] [address] [place] [address] Fina Shultz MD [address] [place] [address] Bus Attendant, [facility] [place] Scheduled Discharge Disposition: Discharged to home or self care (routine discharge) 10/31/2023 12:00 PM SENIOR LITIGATION PARALEGAL Appointment [facility] EEG [address] [place] [address] 1, Eeg - Outpatient 2, [place] [address] [place] [address] Scheduled Discharge Disposition: Discharged to home or self care (routine discharge) documented as of this encounter Visit Diagnoses Diagnosis Alcohol abuse- Primary Alcohol abuse, unspecified documented in this encounter Care Teams Boiler Repair Supervisor Relationship Specialty Start Date End Date Pcp, No [facility] [address] PCP - General 08/31/14 Jose Armando Morales MDIV [address] [place] [address] Ict Support Technicians 02/28/23 10/03/23 documented as of this encounter
--- OUTSIDE RECORDS SUMMARY | 2023-10-19 17:29 | XMS_ITS | Encounter Summary ---
Author Name Unknown Organization [facility] Address [address] [place] [address] Phone Care Team Providers Care Liquor Stores [employer]cies Supervisor Name Role Phone Pcp, No Primary [...] Coronavirus/COVID-19? No / Unsure 10/04/2023 6:06 AM DERRICK WORKER documented as of this encounter Plan of Treatment Upcoming Encounters Date Type Department Care Team Description 10/26/2023 10:40 AM DERRICK WORKER Office [facility] [address] [place] [address] Fina Shultz MD [address] [place], [place] [address] Marzipan Molder, [facility] [place] Scheduled Discharge Disposition: Discharged to home or self care (routine discharge) 10/31/2023 12:00 PM DERRICK WORKER Appointment [facility] EEG [address] [facility] [address] [place], [place] [id number] 1, Eeg - Outpatient 2, [place] [address] [place] [address] Scheduled Discharge Disposition: Discharged to home or self care (routine discharge) documented as of this encounter Procedures Procedure Name Priority Date/Time Associated Diagnosis Comments TELEMETRY STRIPS 10/04/2023 5:09 PM DERRICK WORKER documented in this encounter Results * TELEMETRY STRIPS (10/04/2023 5:09 PM DERRICK WORKER) Narrative 10/04/2023 5:09 PM DERRICK WORKER Ordered by an unspecified provider. Provider Unknown RAD ECHO documented in this encounter Visit Diagnoses Not on filedocumented in this encounter Additional Health Concerns Infection Onset Date Last Indicated Resolved Time SARS-CoV-2 Rule-Out 10/04/2023 10/04/2023 10/04/20 7:15 AM DERRICK WORKER documented as of this encounter Care Teams [employer]cies Supervisor Relationship Specialty Start Date End Date Pcp, No [place] [address] PCP - General 08/31/14 documented as of this encounter
--- OUTSIDE RECORDS SUMMARY | 2023-10-19 17:29 | XMS_ITS | Encounter Summary ---
Author Name Unknown Organization [facility] Address [address] [place] [address] Phone Care Team Providers Care Stud Sheep Farmer Name Role Phone Pcp, No Primary Care Provider Unavailabl Jose Armando Acevedo MDIV Unavailable Unavail able Encounter Details Date Type Department Care Team Description 09/30/2023 Travel Social History Tobacco Use Types Packs/Day [...] Coronavirus/COVID-19? No / Unsure 09/30/2023 11:39 PM ANALYTICAL RESEARCH CHEMIST documented as of this encounter Plan of Treatment Upcoming Encounters Date Type Department Care Team Description 10/26/2023 10:40 AM ANALYTICAL RESEARCH CHEMIST Office Visit [facility] [address] [place] [address] Fina Shultz MD [address] [place], [place] [id number] Paint Roller Covermaker, [facility] [place] Scheduled Discharge Disposition: Discharged to home or self care (routine discharge) 10/31/2023 12:00 PM ANALYTICAL RESEARCH CHEMIST Appointment [facility] EEG [address] [facility] [address] [place], [place] [phone] 1, Eeg - Outpatient 2, [place] [address] [place] [address] Scheduled Discharge Disposition: Discharged to home or self care (routine discharge) documented as of this encounter Visit Diagnoses Not on filedocumented in this encounter Care Teams Stud Sheep Farmer Relationship Specialty Start Date End Date Pcp, [place] [address] PCP - General 08/31/14 Jose Armando Morales MDIV [address] [place] [address] Systems Designer 02/28/23 10/03/23 documented as of this encounter
--- OUTSIDE RECORDS SUMMARY | 2023-10-19 17:29 | XMS_ITS | Encounter Summary ---
Author Name Unknown Organization [facility] Address [address] [place] [address] Phone Care Team Providers Care Still Operator Helper Name Role Phone Pcp, No Primary Care Provider Unavailrickey e Jose Armando Morales MDIV Unavailable Unavail able Reason for Visit * Reason Comments Alcohol Intoxication Encounter Details Date Type Department Care Team Description 09/18/2023 9:00 PM APPRENTICE INSTRUMENT TECHNICIAN - 09/19/2023 4:56 AM APPRENTICE INSTRUMENT TECHNICIAN Emergency [facility] Emergency Department [address] [place] [address] Beltran aGlvan MD [address] [address] Acute alcoholic intoxication with complication () Discharge [...] Coronavirus/COVID-19? No / Unsure 09/18/2023 9:05 PM APPRENTICE INSTRUMENT TECHNICIAN documented as of this encounter Last Filed Vital Signs Vital Sign Reading Time Taken Comments Blood Pressure 93/49 09/19/2023 2:51 AM APPRENTICE INSTRUMENT TECHNICIAN Pulse 77 09/19/2023 2:51 AM APPRENTICE INSTRUMENT TECHNICIAN Temperature 36.9 ??C (98.4 ??F) 09/18/2023 9:08 PM CS T Respiratory Rate 16 09/19/2023 2:51 AM APPRENTICE INSTRUMENT TECHNICIAN Oxygen Saturation 96% 09/19/2023 4:39 AM APPRENTICE INSTRUMENT TECHNICIAN Inhaled Oxygen Concentration - - Weight - - Height - - Body Mass Index - - documented in this encounter Discharge Instructions * Attachments The following attachments cannot be sent through Care Everywhere. * Altered Mental Status Discharge Instructions (Mongolian) documented in this encounter Medications at Time [...] as of this encounter ED Notes * Krystina Waters RN - 09/19/2023 4:27 AM CST Pt is awake and alert, ambulatory with a steady gait and tolerating food and fluids. Pt is discharged with instructions and personal belongings, dressed appropriately for the weather. ENTICE INSTRUMENT TECHNICIAN * Elodia Borjas PA-C - 09/18/2023 9:24 PM CST ED Provider Note Dixie Smith : 1985 Sex: male Patient Arrival Date and Time: 09/18/2023 9:00 PM HPI Dixie Smith is a 37 y.o. male presenting with AMS, alcohol intoxication, and tongue pain. Patient states that he is concerned for a seizure, as he has tongue pain. He has had a cut on his tongue for a week. He denies a seizure history, and states he does not take seizure medications. He denies other areas of pain. Per chart review, pt was seen in this ED 2 days ago for similar complaints. During that visit, it was noted to be well healed, and he was discharged with peridex mouthwash. A complete ROS, PMHx, SHx, FHx, allergies, and medications could not be reviewed 2/2 patient impairment. MDM / ED Course Patient arrives altered presumably 2/2 alcohol though cannot rule out more serious pathology at this time. Brought in by EMS. The patient did not require sedation for acute agitation. Patient is protecting airway, is vitally stable, and is not in need of immediate intervention. Breathalyzer Breathalyzer: 0.314 Effort: Poor effort Thorough physical exam for occult injury performed. Examination of the tongue revealed a healing laceration to the L lateral tongue, this does not appear new. No other injuries identified. Will continue to observe for appropriate clearing. Considered additional work up for AMS to include labs and imaging, but patient is clearing as expected from substance use. Signed out to oncoming ED provider with the plan to continue observing for clinical sobriety and likely discharge. Differential diagnosis considered includes metabolic/hormonal abnormality, sepsis, meningitis, seizure/post ictal state, SAH, SDH, TIA, CVA, psychosis, toxin ingestion, and others. Patient evaluated,differential diagnoses and practice alternatives reviewed, and plan discussed with supervising physician. Dx, DDx, Assessment and Plan was discussed with Attending Emergency Medicine Physician. Problems Addressed 1 acute or chronic illness or injury that poses a threat to life or bodily function AMS, alcohol intoxication Data considered External notes reviewed and summarized, Tests Ordered, Additional tests considered but not ordered, and Additional history obtained from EMS Breathalyzer obtained. Risk of patient management Diagnosis or treatment significantly limited by social determinants of health Pertinent Physical Exam findings: Vitals: BP 113/59 (Cuff Location: Left Arm, Patient Position: Lying Down) Pulse 79 Temp 36.9 ??C (98.4 ??F) (Oral) Resp 16 SpO2 96% General: Resting in NAD, disheveled, smells of EtOH HENT: Normocephalic, atraumatic, PERRL, dry mucous membranes, well healing ~3cm laceration noted Jelani lateral tongue Cardio: Regular rate & rhythm, no murmurs appreciated, no LE edema, cap refill <3 seconds Resp: Normal respiratory effort, lungs clear to auscultation in all quadrants Abdomen: No distention, nontender to palpation Back: Atraumatic Pelvis: Stable Extremities: Mobile with full strength Neuro: Slurred speech, cerebellar impairment, limited ability to follow commands, CN II-XII grosslyintact Skin: Warm, no diaphoresis, no rashes or ecchymosis, normal color IMPRESSION 1. Altered mental status, unspecified altered mental status type 2. Alcoholic intoxication without complication () Elodia Borjas PA-C, 09/18/2023 10:12 PM ENTICE INSTRUMENT TECHNICIAN * Kane Scott RN - 09/18/2023 9:01 PM CST Pt BIBA from home, pt called after waking up after biting his tongue, pt concerned for possible seizure, here for evaluation of tongue pain. Pt endorses etoh use. Pt vitally stable en route, no signsof trauma, other than the tongue pain. ENTICE INSTRUMENT TECHNICIAN * Ingrid Abdi RN - 09/18/2023 9:00 PM CST Bed: [place] [id number] Expected date: Expected time: Means of arrival: Comments: 37m, ETOH ENTICE INSTRUMENT TECHNICIAN documented in this encounter Miscellaneous Notes * ED Faculty Note - Beltran Galvan MD - 09/19/2023 1:47 AM CST Images from the original note were not included. ED Faculty Attestation and Note Dixie Smith : 1985 Sex: male Patient Arrival Date and Time: 09/19/2023 1:47 AM Medical Decision Making / ED Course / Disposition The patient's mental status cleared as expected. They were ambulating without assistance, tolerating PO, able to interact with staff and denies new complaints. They were discharged. Critical Care / Observation / Encounter Complexity Critical Care: None. Observation Care: I supervised the discharge from observation care. Sepsis: No. Faculty Attestation I, Beltran Galvan MD, personally saw the patient, performed critical or larios portions of the service, and discussed the care with the Advanced Practice Provider. Scribed for Beltran Galvan MD by Dilia Ron Scribe, 09/19/2023 1:47 AM Beltran Galvan MD 01:47 ENTICE INSTRUMENT TECHNICIAN * ED Obs Discharge Summary - Amara Chow PA-C - 09/19/2023 12:00 AM APPRENTICE INSTRUMENT TECHNICIAN ED Observation Discharge Note Dixie Smith : 1985 Sex: male ED Admit/DC/Obs Order Electronically Signed by Ordering Provider (From admission, onward) None DISCHARGE DIAGNOSIS 1). Altered mental status, resolved. Secondary to alcohol poisoning. BRIEF SUMMARY Serial neurologic assessments were performed over the period of the patient???s observation, and his mental status gradually improved. At time of discharge, the patient was able to ambulate without assistance, and their mental status returned to baseline. Ultimately, it was determined that their altered mental status was secondary to alcohol poisoning. Other more serious causes of altered mental status such as intracranial bleeding, infection and metabolic disease was not found to be the cause of altered mental status (AMS). The patient did not require chemical sedation for agitation. FINAL PLAN 1). Discharge from the ED to street. PHYSICAL EXAM Vitals: BP 113/59 (Cuff Location: Left Arm, Patient Position: Lying Down) Pulse 79 Temp 36.9 ??C (98.4 ??F) (Oral) Resp 16 SpO2 96% Physical Exam Physical Exam Constitutional: Pt appears well developed and well nourished. Pt is interactive and cooperative on exam. Pt does not appear ill or distressed. HENT/Neck: Head: Normocephalic and appears atraumatic. Pt displays appropriate hearing, speaks easily in full sentences, airway is patent at this time. Pt displays full ROM of neck. Eyes: Vision appears conjugate. Cardiovascular: Heart rate as per vitals. Pulmonary/Chest: No respiratory distress noted. Neurological: Pt is alert, no confusion, ataxia, or limb weakness appreciated. MSK: No acute deformities appreciated. Pt moves all extremities. Gastrointestinal: No abdominal distension appreciated. No jaundice appreciated. Genitourinary: Not examined. Endocrine: No obvious abnormalities or thyromegaly appreciated. Hematologic/Lymphatic: No purpura or petechia seen. Skin: Skin is warm, dry and intact. Pt is not diaphoretic. No rashes seen. Psych: no hallucinations appreciated MEDICATIONS ORDERED (with documentation status as of note signing time, please correlate with the MAR) Medications Before Time of ED Departure - No data to display Amara Chow PA-C ENTICE INSTRUMENT TECHNICIAN * ED Obs H&P - Elodia Borjas PA-C - 09/18/2023 9:35 PM CST Images from the original note were not included. ED Observation H&P Note Dixie Guillaumevahe Luis : 1985 Sex: male Patient Arrival Date and Time: 09/18/2023 9:00 PM Dixie Smith was admitted to ED Observation Status given concern for altered mental status. Dixie Smith requires a period of observation for sensorium to clear, which will include serial neurologic examinations and reassessment in order to rule out more serious and life threatening casesof altered mental status. If AMS does not clear appropriately, as anticipated, further work up of possible head CT, drug screen, or lab testing may be indicated. Breathalyzer obtained and most recent: Breathalyzer Breathalyzer: 0.314 Effort: Poor effort. ED Observation Orders: ED Observation Orders Admit to ED Observation ONCE Please note this H&P along with the ED Provider Note serve as the patient's observation historyand physical. Review of Systems Unable to perform complete ROS due to AMS. Past Medical/Family/Social History PMH: Past Medical History: Diagnosis Date Positive QuantiFERON-TB Gold test 12/23/2013 12/10/2013: 0.89 Vitamin D deficiency 12/23/2013 12/18/2013: 11.9; ergocalciferol prescribed PSHx: Past Surgical History: Procedure Laterality Date ARCH BAR APPLICATION MMF N/A 07/18/2019 Procedure: ARCH BAR APPLICATION MMF; Laterality: N/A; Surgeon: Arvin Pierce MD; Service: Otolaryngology FIXATOR APPLICATION LEG OR FOOT Right 2013 Procedure: FIXATOR APPLICATION LEG OR FOOT; Laterality: Right; Surgeon: Julio Cesar Prasad MD; Service: Orthopedics IM FERNANDO TIBIA Right 12/04/2013 Procedure: IM FERNANDO TIBIA; Laterality: Right; Surgeon: Julio Cesar Prasad MD; Service: Orthopedics IRRIGATION & DEBRIDEMENT LEG Right 2013 Procedure: I&D LEG, ex-fix R leg. pilon fracture ; Laterality: Right; Surgeon: Melania Prasad MD; Service: Orthopedics IRRIGATION & DEBRIDEMENT LEG Right 12/04/2013 Procedure: I&D LEG; Laterality: Right; Surgeon: Julio Cesar Prasad MD; Service: Orthopedics MANDIBLE ORIF Left 05/30/2019 Procedure: MANDIBLE ORIF, possible MMF, proceed as indicated; Laterality: Left; Surgeon: Arvin Pierce MD; Service: Otolaryngology MANDIBLE ORIF Left 07/18/2019 Procedure: MANDIBLE ORIF; Laterality: Left; Surgeon: Arvin Pierce MD; Service: Otolaryngology ORIF PILON FRACTURE Right 10/16/2013 Procedure: Percutaneous fixation tibial plafond, possible adjustment of ex-fix; Laterality: Right; Surgeon: Julio Cesar Prasad MD; Service: Orthopedics REMOVAL OF HARDWARE, FIXATOR Right 12/04/2013 Procedure: REMOVAL OF FIXATOR; Laterality: Right; Surgeon: Julio Cesar Prasad MD; Service: Orthopedics Family Hx: No family history on file. Social Hx: Occupational History Not on file Tobacco Use Smoking status: Every Day Packs/day: .5 Types: Cigarettes Start date: 1984 Smokeless tobacco: Current Substance and Sexual Activity Alcohol use: Yes Alcohol/week: 3.3 standard drinks of alcohol Types: 4 Cans of beer per week Drug use: No Sexual activity: Never Social History Narrative Merged History Encounter Merged History Encounter Merged History Encounter ENTICE INSTRUMENT TECHNICIAN * ED Faculty Note - Beltran Galvan MD - 09/18/2023 9:25 PM CST Images from the original note were not included. ED Faculty Attestation and Note Dixie Smith : 1985 Sex: male Patient Arrival Date and Time: 09/18/2023 9:00 PM Medical Decision Making / ED Course / Disposition Patient presented with AMS. The patient will be observed for clinical clearance. Additional tests including CT head, labs may be required if patient does not clear appropriately. The patient's primary problem was altered mental status. Social determinants of health played a significant role in the patient's presentation to the Emergency Department. Additional testing was considered. Critical Care / Observation / Encounter Complexity Critical Care: None. Observation Care: I supervised the initiation of observation care. Sepsis: No. Faculty Attestation Cole Gray Aaron E, MD, personally saw the patient, performed critical or larios portions of the service, and discussed the care with the Advanced Practice Provider. Scribed for Beltran Galvan MD by Dilia Ron Scribe, 09/18/2023 9:25 PM Beltran Galvan MD 21:25 ENTICE INSTRUMENT TECHNICIAN documented in this encounter Plan of Treatment Upcoming Encounters Date Type Department Care Team Description 10/26/2023 10:40 AM APPRENTICE INSTRUMENT TECHNICIAN Office Visit [facility] [address] [place] [address] Fina Shultz MD [address] [place], [place] [address] Policy Issue Clerk, [facility] Scheduled Discharge Disposition: Discharged to home or self care (routine discharge) 10/31/2023 12:00 PM APPRENTICE INSTRUMENT TECHNICIAN Appointment [facility] EEG [address] [place], [place] [address] 1, [facility] - Outpatient 2, [facility] [address] [place] [address] Scheduled Discharge Disposition: Discharged to home or self care (routine discharge) documented as of this encounter Visit Diagnoses Diagnosis Altered mental status, unspecified altered mental status type- Primary Alcoholic intoxication without complication () Acute alcoholic intoxication with complication () documented in this encounter Care Teams Still Operator Helper Relationship Specialty Start Date End Date Pcp, No [facility] [place] [address] PCP - General 08/31/14 Jose Armando Morales MDIV [address] [place] [address] Rehabilitation Engineer 02/28/23 10/03/23 documented as of this encounter
--- OUTSIDE RECORDS SUMMARY | 2023-10-19 17:29 | XMS_ITS | Encounter Summary ---
Author Name Unknown Organization [facility] Address [address] [facility] [place] [address] Phone Care Team Providers Care Screw Machine Tender Name Role Phone Pcp, No Primary Care Provider Unavailabl e Jose Armando Morales MDIV Unavailable Unavail able Reason for Visit * Reason Comments Tongue Laceration Encounter Details Date Type Department Care Team Description 09/16/2023 7:35 PM PHOTOFLASH POWDER MIXER - 09/16/2023 9:19 PM PHOTOFLASH POWDER MIXER Emergency [facility] [address] [facility] [address] [place] [address] Yina Fisher MD [address] [place] [address] Jeovany Johnson MD [address] [facility] [address] [place] [address] Tongue wound, initial encounter Discharge Disposition: Discharged [...] Coronavirus/COVID-19? No / Unsure 09/16/2023 4:50 PM PHOTOFLASH POWDER MIXER documented as of this encounter Last Filed Vital Signs Vital Sign Reading Time Taken Comments Blood Pressure 143/101 09/16/2023 7:51 PM PHOTOFLASH POWDER MIXER Pulse 86 09/16/2023 7:51 PM PHOTOFLASH POWDER MIXER Temperature 36.7 ??C (98.1 ??F) 09/16/2023 4:46 PM CS T Respiratory Rate 20 09/16/2023 4:46 PM PHOTOFLASH POWDER MIXER Oxygen Saturation 99% 09/16/2023 7:51 PM PHOTOFLASH POWDER MIXER Inhaled Oxygen Concentration - - Weight - - Height - - Body Mass Index - - documented in this encounter Discharge Instructions * Discharge Instructions* Rosaura Harrington PA-C - 09/16/2023 9:10 PM PHOTOFLASH POWDER MIXER You are seen in the ED for tongue pain. You look like you have a healing wound on your tongue that was likely from a bite. Your labs otherwise look normal today. Continue Tylenol and ibuprofen every 6 hours as needed for pain. Use Peridex mouthwash solution to swish and spit which will also help with symptoms. Follow-up with your primary care provider as needed. Return to ED if experience fevers,chills, worsening pain or swelling. OFLASH POWDER MIXER documented in this encounter Medications at Time [...] as of this encounter ED Notes * Rosaura Harrington PA-C - 09/16/2023 7:51 PM CST Images from the original note were not included. ED Provider Note Dixie Smith : 1985 Sex: male Patient Arrival Date and Time: 09/16/2023 4:42 PM HPI Dixie Smith is a 37 y.o. male with PMH AUD, presenting for concerns of tongue laceration thathas been present for 2 weeks. Reports he was drinking at night and then woke up in the morning withtongue laceration, pain, with minimal bleeding. States bleeding has since resolved. He reports little difficulty sleeping due to the pain. He has not tried taking anything for the pain at home. Denies recent fevers, chills, significant tongue or throat swelling, difficulty breathing. Hunting Sales Associate utilized: Yes, [place] Chief Complaint: Tongue Laceration Clinical Impression: 1. Tongue wound, initial encounter MDM / ED Course Dixie Smith is a 37 y.o. male who presents with tongue laceration. They arrive to the ER hemodynamically stable and non-toxic appearing. Wide differential considered including laceration, allergic reaction, underlying infection, others. On exam, patient is well-appearing. Tongue exam reveals a healing laceration to the left lateral aspect of tongue. No visible bleeding or swelling or signs of infection. No other injuries noted. Lungs clear to ausculttion bilaterally, low concern for respiratory issues. This does not need any otherinterventions at this time, will plan to discharge with Peridex mouthwash for symptoms. Labs obtained in triage with CBC, chemistry unremarkable, lactate mildly elevated at 2.6. Patient known AUD, added blood etoh level which was 0.235, which is likely cause of elevated lacate. Patient tolerated drinking several glasses of water without issue. Patient seen in collaboration with ED staff physician. All ordered labs & imaging studies personally reviewed and interpreted as above. Patient remained hemodynamically stable throughout their stay in the ED. Discussed the plan with the patient, including complications and follow up. Discussed reasons to return to ED for re-evaluation. The patient expressed understanding and agreement to the plan. The patient was discharged home in stable condition after all questions were answered. Final Clinical Impression: 1. Tongue wound, initial encounter Disposition and Plan: Discharge home, Peridex mouthwash Follow-up with PCP as needed ED return precautions discussed Problems addressed Data considered External notes reviewed and summarized Risk of patient management Low risk Physical Exam: Physical Exam BP 143/101 (Cuff Location: Left Arm, Patient Position: Sitting) Pulse 86 Temp 36.7 ??C (98.1 ??F) (Oral) Resp 20 SpO2 99% General: Patient appears comfortable, not toxic appearing. NAD. Eyes: No conjunctivitis or drainage. EOMs intact. PERRLA. Ears: Hearing grossly intact. Mouth/Throat: Mucosa moist. Tongue with well-healing laceration to left lateral tongue. No visible bleeding or swelling. Pulmonary: Breathing comfortably on room air. No accessory muscle use. Clear to auscultation bilaterally, no wheezes, rhonchi, stridor. Skin: Dry, not diaphoretic. Musculoskeletal: Strength equal and intact in bilateral upper and lower extremities. Neurological: Alert and oriented to person, place, and time. Answers all questions appropriately. Psychiatric: Normal behavior. Appropriate thought patterns. Orders: Medications Before Time of ED Departure acetaminophen tablet 650 mg (650 mg Oral Given 09/16/232009) ibuprofen (MOTRIN;ADVIL) tablet 600 mg (600 mg Oral Given 09/16/232009) lidocaine viscous (XYLOCAINE VISCOUS) 2 % solution 15 mL (15 mL Oral Given 09/16/232009) Orders Before Time of ED Departure ED CHEMISTRY LABS(NA,K,CL,CO2,GLU,CREAT,CA-IONIZED,ANION GAP) - Abnormal; Notable for the followingcomponents: Result Value Ref Range ICA, Actual 4.25 (*) 4.40 - 5.20 mg/dL ICA, pH Corrected 4.33 (*) 4.40 - 5.20 mg/dL Creatinine 0.63 (*) 0.70 - 1.25 mg/dL Potassium 3.4 (*) 3.5 - 5.3 mEq/L All other components within normal limits CBC WITH PLTS/AUTO DIFF - Abnormal; Notable for the following components: RBC 4.27 (*) 4.60 - 6.00 m/cmm MCH 32.8 (*) 25.0 - 32.0 pg All other components within normal limits LACTATE (LACTIC ACID) - Abnormal; Notable for the following components: Lactate 2.6 (*) 0.7 - 2.1 mmol/L All other components within normal limits ETHANOL (ETOH) LEVEL, BLOOD - Abnormal; Notable for the following components: Ethanol 0.235 (*) <=0.000 g/dL All other components within normal limits EXTRA TUBE - SST EXTRA TUBE - DARK GREEN ED DISCHARGE acetaminophen tablet 650 mg (650 mg Oral Given 09/16/232009) ibuprofen (MOTRIN;ADVIL) tablet 600 mg (600 mg Oral Given 09/16/232009) lidocaine viscous (XYLOCAINE VISCOUS) 2 % solution 15 mL (15 mL Oral Given 09/16/232009) Dictation Disclaimer: Some notes are completed with voice-recognition dictation software. As a result, there may be errors in the script that have gone undetected. Please contact me via [employer] staff message if you note any errors requiring clarification. Rosaura Harrington PA-C, 09/23/2023 11:33 PM OFLASH POWDER MIXER * Jesenia Fay RN - 09/16/2023 7:35 PM CST Bed: B08 Expected date: Expected time: Means of arrival: Comments: T OFLASH POWDER MIXER * Elizabeth Simms RN - 09/16/2023 4:47 PM CST Pt to triage with report of left sided tongue pain x 2 weeks. Tongue appears to have been injured and healed. Pt woke up with tongue pain and is doesn't know how it happened. Pt admits to ETOH the night before he woke up with tongue injury. Pt denies a history of alcohol withdrawal seizures. Last drink today. OFLASH POWDER MIXER documented in this encounter Miscellaneous Notes * ED Faculty Note - Yina Fisher MD - 09/16/2023 8:32 PM CST Images from the original note were not included. ED Faculty Attestation and Note Dixie Smith : 1985 Sex: male Patient Arrival Date and Time: 09/16/2023 4:42 PM FACULTY ATTESTATION I Yina Fisher MD, personally saw the patient, performed critical or larios portions of the service, and discussed the care with the Advanced Practice Provider. MDM / ED Course [place] Smith presented to the emergency department with tongue laceration that happened 2 weeks ago. Bit it when he was sleeping. No seizure history, no withdrawal seizure history. ETOH use disorder. Tongue appears to be well healing, no need for repair. Discussed this with patient who was discharged with peridex mouth wash and PCP followup. The patient has normal vital signs at the time of discharge, maintains full capacity, understands the return precautions, and was given opportunity to ask questions about the discharge plan. Problems Addressed / DDx ??1 undiagnosed new problem with uncertain prognosis Data considered Considered labs Risk of patient management Prescription drug management IMPRESSION No diagnosis found. Yina Fisher MD, 09/16/2023 8:32 PM OFLASH POWDER MIXER * ED Triage Provider Note - Jeovany Johnson MD - 09/16/2023 4:59 PM PHOTOFLASH POWDER MIXER Images from the original note were not included. ED Triage Faculty Provider Note Dixie Smith : 1985 Sex: male Patient Arrival Date and Time: 09/16/2023 4:42 PM Due to a language barrier, a professional manager action was present by video during this encounter. HPI and Pertinent Exam 37 y.o. male presents for left sided tongue pain for the last 2 weeks. Daily EtOH use, went to bed intoxicated that night. Denies hx of alcohol withdrawal seizures. Last drink today. I saw the patient and performed a medical screening evaluation upon arrival DISPOSITION Patient to await placement in [facility] Scribed for Jeovany Johnson MD by Liss Cheng Scribe, 09/16/2023 4:59 PM I, Jeovany Johnson MD have reviewed the initial documentation provided by the scribe and affirm that it is an accurate restatement of my dictated record of services. Signed: Jeovany Johnson MD, 16:59 09/16/2023 OFLASH POWDER MIXER documented in this encounter Plan of Treatment Upcoming Encounters Date Type Department Care Team Description 10/26/2023 10:40 AM PHOTOFLASH POWDER MIXER Office Visit [facility] [address] [place] [address] Fina Shultz MD [address] [place] [id number] Hunting Sales Associate, [facility] [place] Scheduled Discharge Disposition: Discharged to home or self care (routine discharge) 10/31/2023 12:00 PM PHOTOFLASH POWDER MIXER Appointment [facility] [address] [place] [address] [address] [place], [place] [address] 1, Eeg - Outpatient 2, Isd-[place] [address] [place] [id number] Scheduled Discharge Disposition: Discharged to home or self care (routine discharge) documented as of this encounter Procedures Procedure Name Priority Date/Time Associated Diagnosis Comments EXTRA TUBE - DARK GREEN Routine 09/16/2023 5:22 PM PHOTOFLASH POWDER MIXER TC LAB BLOOD DRAW BY VENIPUNCTURE Routine 09/16/2023 5:22 PM PHOTOFLASH POWDER MIXER PC ELECTROLYTES PANEL STAT 09/16/2023 5:22 PM PHOTOFLASH POWDER MIXER PC LAB CBC W/DIFF & PLT STAT 09/16/2023 5:22 PM PHOTOFLASH POWDER MIXER PC LACTATE (LACTIC ACID) STAT 09/16/2023 5:22 PM PHOTOFLASH POWDER MIXER ETHANOL (ETOH) LEVEL, BLOOD Routine 09/16/2023 5:22 PM PHOTOFLASH POWDER MIXER documented in this encounter Results * (ABNORMAL) ETHANOL (ETOH) LEVEL, BLOOD (09/16/2023 5:22 PM PHOTOFLASH POWDER MIXER) Ethanol 0.235(H) <=0.000 g/dL [facility] Blood 09/16/2023 5:22 PM PHOTOFLASH POWDER MIXER 09/16/2023 8:44 PM PHOTOFLASH POWDER MIXER Rosaura Harrington PA-C LABORATORY Performing Organization Address City/[facility]/ZIP Co de Phone Number [facility] [address] [address] * EXTRA TUBE - DARK GREEN (09/16/2023 5:22 PM PHOTOFLASH POWDER MIXER) DARK GREEN TUBE Stored [facility] Comment:Dark Green tubes (Li thium Heparin) are stored in the lab for 1 day from the collection date. Blood 09/16/2023 5:22 PM PHOTOFLASH POWDER MIXER 09/16/2023 5:27 PM PHOTOFLASH POWDER MIXER Jeovany Johnson MD LABORATORY Performing Organization Address City/[facility]/ZIP Co de Phone Number [facility] [address] [address] * EXTRA TUBE - SST (09/16/2023 5:22 PM PHOTOFLASH POWDER MIXER) SST TUBE Stored [facility] Comment:SST tubes (Serum Sep arator) are stored in the lab for 3 days from the collection date. Blood 09/16/2023 5:22 PM PHOTOFLASH POWDER MIXER 09/16/2023 5:27 PM PHOTOFLASH POWDER MIXER Jeovany Johnson MD LABORATORY [facility] [address] [address] * (ABNORMAL) LACTATE (LACTIC ACID) (09/16/2023 5:22 PM PHOTOFLASH POWDER MIXER) [facility] Lactate 2.6(H) 0.7 - 2.1 mmol/L [facility] Blood 09/16/2023 5:22 PM PHOTOFLASH POWDER MIXER 09/16/2023 5:33 PM PHOTOFLASH POWDER MIXER Narrative [facility] - 09/16/2023 5:33 PM PHOTOFLASH POWDER MIXER Send specimen on ice! Jeovany Johnson MD LABORATORY Performing Organization Address [facility] Co de Phone Number [facility] [address] [address] * (ABNORMAL) CBC WITH PLTS/AUTO DIFF (09/16/2023 5:22 PM PHOTOFLASH POWDER MIXER) [facility] WBC 6.34 4.00 - 10.00 k/cmm [facility] RBC 4.27(L) 4.60 - 6.00 m/cmm [facility] Hgb 14.0 13.1 - 17.5 g/dL [facility] Hematocrit 41.8 40.0 - 51.0 % [facility] MCV 97.9 80.0 - 100.0 fL [facility] MCH 32.8(H) 25.0 - 32.0 pg [facility] MCHC 33.5 31.0 - 36.0 g/dL [facility] RDW 14.4 11.5 - 14.5 % [facility] Plt 203 150 - 400 k/cmm [facility] MPV 10.1 6.5 - 12.5 fL [facility] Automated Abs Neutrophil 3.59 1.70 - 6.50 k/cmm [facility] Comment:Preliminary ANC, Fin al Result to Follow Abs Immature Granulocyte 0.03 0.00 - 0.09 k/cmm [facility] Comment:The Immature Granulo cyte Absolute count contains metamyelocytes and myelocytes. Abs Neutrophil 3.59 1.70 - 6.50 k/cmm [facility] Abs Lymphocyte 1.98 0.80 - 4.00 k/cmm [facility] Abs Monocyte 0.60 0.20 - 1.00 k/cmm [facility] Abs Eosinophil 0.09 0.00 - 0.60 k/cmm [facility] Abs Basophil 0.05 0.00 - 0.20 k/cmm [facility] Blood 09/16/2023 5:22 PM PHOTOFLASH POWDER MIXER 09/16/2023 5:48 PM PHOTOFLASH POWDER MIXER Jeovany Johnson MD LABORATORY [facility] [address] [address] * (ABNORMAL) ED CHEMISTRY LABS(NA,K,CL,CO2,GLU,CREAT,CA-IONIZED,ANION GAP) (09/16/2023 5:22 PM PHOTOFLASH POWDER MIXER) Sodium 148 135 - 148 mEq/L [facility] Chloride 108 92 - 108 mEq/L [facility] AnGap 15 8 - 16 mEq/L [facility] Glucose 75 70 - 100 mg/dL [facility] ICA, Actual 4.25(L) 4.40 - 5.20 mg/dL [facility] ICA, pH Corrected 4.33(L) 4.40 - 5.20 mg/dL [facility] Creatinine 0.63(L) 0.70 - 1.25 mg/dL [facility] BICARB 24 22 - 26 mEq/L [facility] eGFR (2020 CKD-EPI) >120 >=60 ml/min/1.7 3m2 [facility] Comment: The estimated glomerular filtration rate (eGFR) was calculated using the CKD-EPI 2020 creatinine equation, which does not include race as a factor. This equation is validated in individuals 18 years of age and older, and eGFR is normalized to a body surface area of 1.73m^2. Potassium 3.4(L) 3.5 - 5.3 mEq/L [facility] Blood 09/16/2023 5:22 PM PHOTOFLASH POWDER MIXER 09/16/2023 5:32 PM PHOTOFLASH POWDER MIXER Jeovany Johnson MD LABORATORY Performing Organization Address City/[facility]/ZIP Co de Phone Number [facility] [address] [place] [address] documented in this encounter Visit Diagnoses Diagnosis Tongue wound, initial encounter- Primary documented in this encounter Administered Medications Inactive Administered Medications - up to 3 most recent administrations Medication Order MAR Action Action Date Dose Rate Site acetaminophen tablet 650 mg 650 mg, Oral, ONE TIME, 1 dose, On 09/16/23 at 2009 Given 09/16/2023 8:10 PM PHOTOFLASH POWDER MIXER 650 mg ibuprofen (MOTRIN;ADVIL) tablet 600 mg 600 mg, Oral, ONE TIME, 1 dose, On 09/16/23 at 2009 Given 09/16/2023 8:10 PM PHOTOFLASH POWDER MIXER 600 mg lidocaine viscous (XYLOCAINE VISCOUS) 2 % solution 15 mL 15 mL, Oral, ONE TIME, 1 dose, On 09/16/23 at 2009 Given 09/16/2023 8:10 PM PHOTOFLASH POWDER MIXER 15 mL documented in this encounter Active and Recently Administered Medications Times are shown in PHOTOFLASH POWDER MIXER. Scheduled Medication Order 09/14/2023 09/15/2023 09/16/2023 acetaminophen tablet 650 mg (COMPLETED) 650 mg, Oral, ONE TIME, 1 dose, On 09/16/23 at 2009 2009 (Given - Provid er: Magdaleno Larose RN) ibuprofen (MOTRIN;ADVIL) tablet 600 mg (COMPLETED) 600 mg, Oral, ONE TIME, 1 dose, On 09/16/23 at 2009 2009 (Given - Provid er: Magdaleno Larose RN) lidocaine viscous (XYLOCAINE VISCOUS) 2 % solution 15 mL (COMPLETED) 15 mL, Oral, ONE TIME, 1 dose, On 09/16/23 at 2009 2009 (Given - Provid er: Magdaleno Larose RN) documented in this encounter Care Teams Screw Machine Tender Relationship Specialty Start Date End Date Pcp, No [facility] [place] [address] PCP - General 08/31/14 Jose Armando Morales MDIV [address] [place] [address] Artist Model 02/28/23 10/03/23 documented as of this encounter
--- OUTSIDE RECORDS SUMMARY | 2023-10-19 17:29 | XMS_ITS | Encounter Summary ---
Author Name Unknown Organization [facility] Address [address] [facility] [place] [address] Phone Care Team Providers Care Industrial Equipment Mechanic Name Role Phone Pcp, No Primary Care [...] Coronavirus/COVID-19? No / Unsure 10/04/2023 6:06 AM DIRECTOR OF CAMPUS RECREATION documented as of this encounter Plan of Treatment Upcoming Encounters Date Type Department Care Team Description 10/26/2023 10:40 AM DIRECTOR OF CAMPUS RECREATION Office Visit [facility] [address] [place] [address] Fina Shultz MD [address] [place], [place] [address] Auto Air Conditioning Apprentice, [facility] Cyp[place] Scheduled Discharge Disposition: Discharged to home or self care (routine discharge) 10/31/2023 12:00 PM DIRECTOR OF CAMPUS RECREATION Appointment [facility] [address] [facility] [address] [place], [place] [id number] 1, Eeg - Outpatient 2, Isd-[place] [address] [place] [address] Scheduled Discharge Disposition: Discharged to home or self care (routine discharge) documented as of this encounter Procedures Procedure Name Priority Date/Time Associated Diagnosis Comments TELEMETRY STRIPS 10/04/2023 3:49 PM DIRECTOR OF CAMPUS RECREATION documented in this encounter Results * TELEMETRY STRIPS (10/04/2023 3:49 PM DIRECTOR OF CAMPUS RECREATION) Narrative 10/04/2023 3:49 PM DIRECTOR OF CAMPUS RECREATION Ordered by an unspecified provider. Provider Unknown RAD ECHO documented in this encounter Visit Diagnoses Not on filedocumented in this encounter Additional Health Concerns Infection Onset Date Last Indicated Resolved Time SARS-CoV-2 Rule-Out 10/04/2023 10/04/2023 10/04/20 7:15 AM DIRECTOR OF CAMPUS RECREATION documented as of this encounter Care Teams Industrial Equipment Mechanic Relationship Specialty Start Date End Date Pcp, [place] [address] PCP - General 08/31/14 documented as of this encounter
--- OUTSIDE RECORDS SUMMARY | 2023-10-19 17:29 | XMS_ITS | Encounter Summary ---
Author Name Unknown Organization [facility] Address [address] [facility] [place] [address] Phone Care Team Providers Care Lime Kiln Worker Helper Name Role Phone Pcp, No Primary Care Provider Unavailabl e Encounter Details Date Type Department Care Team Description 10/04/2023 Travel Social History Tobacco Use Types Packs/Day [...] Coronavirus/COVID-19? No / Unsure 10/04/2023 6:06 AM STUDENT CAREER DEVELOPMENT SPECIALIST documented as of this encounter Plan of Treatment Upcoming Encounters Date Type Department Care Team Description 10/26/2023 10:40 AM STUDENT CAREER DEVELOPMENT SPECIALIST Office Visit [facility] [address] [place] [address] Fina Shultz MD [address] [place], [place] [phone] Freight Conductor, [facility] Bah[place]ian Scheduled Discharge Disposition: Discharged to home or self care (routine discharge) 10/31/2023 12:00 PM STUDENT CAREER DEVELOPMENT SPECIALIST Appointment [facility] [address] [facility] [address] [place], [place] [id number] 1, Eeg - Outpatient 2, Isd-[place] [address] [place] [address] Scheduled Discharge Disposition: Discharged to home or self care (routine discharge) documented as of this encounter Visit Diagnoses Not on filedocumented in this encounter Additional Health Concerns Infection Onset Date Last Indicated Resolved Time SARS-CoV-2 Rule-Out 10/04/2023 10/04/2023 10/04/20 23 7:15 AM STUDENT CAREER DEVELOPMENT SPECIALIST documented as of this encounter Care Teams Lime Kiln Worker Helper Relationship Specialty Start Date End Date Pcp, [place] [address] PCP - General 08/31/14 documented as of this encounter
--- OUTSIDE RECORDS SUMMARY | 2023-10-19 17:29 | XMS_ITS | Encounter Summary ---
Author Name Unknown Organization [facility] Address [address] [place] [address] Phone Care Team Providers Care Stick Puller Name Role Phone Pcp, No Primary Care Provider Unavailabl e Jose Armando Morales MDIV Unavailable Unavail able Reason for Visit * Reason Comments Seizure Encounter Details Date Type Department Care Team Description 09/25/2023 12:35 PM CRACK OFF PERSON - 09/25/2023 5:14 PM CRACK OFF PERSON Emergency [facility] [address] [facility] [address] [place] [address] Ronaldo Burns MD [address] [facility] [address] [place], [place] [id number] Laceration of tongue, initial encounter Discharge Disposition: [...] Coronavirus/COVID-19? No / Unsure 09/25/2023 12:38 PM CRACK OFF PERSON documented as of this encounter Last Filed Vital Signs Vital Sign Reading Time Taken Comments Blood Pressure 161/71 09/25/2023 4:13 PM CRACK OFF PERSON Pulse 79 09/25/2023 4:13 PM CRACK OFF PERSON Temperature 36.7 ??C (98 ??F) 09/25/2023 12:36 PM CRACK OFF PERSON Respiratory Rate 17 09/25/2023 12:36 PM CRACK OFF PERSON Oxygen Saturation 100% 09/25/2023 1:56 PM CRACK OFF PERSON Inhaled Oxygen Concentration - - Weight - - Height - - Body Mass Index - - documented in this encounter Discharge Instructions * Discharge Instructions* Kathy Lujan PA-C - 09/25/2023 4:39 PM CRACK OFF PERSON Follow up with addiction medicine regarding your alcohol use. Please see your regular doctor, or use the number above for recheck of the cut to your tongue. Return to the ER for any new or worsening symptoms, recurrent seizure, persistent vomiting, severe headache, numbness or tingling, or any other new concerns. K OFF PERSON * Attachments The following attachments cannot be sent through Care Everywhere. * Mouth and dental injuries in adults (Beninese) * Alcohol withdrawal (Beninese) documented in this encounter Medications at Time [...] as of this encounter ED Notes * Kathy Lujan PA-C - 09/25/2023 1:14 PM CST Images from the original note were not included. ED Provider Note Luis Colin : 1985 Sex: male Patient Arrival Date and Time: 09/25/2023 12:35 PM HPI This is a 37 y.o. male with a history of intermittent alcohol use, who presents today for evaluation of first-time seizure. Patient is post-ictal on arrival with unclear history. Denies medical problems or taking regular medication. Patient states he drinks one bottle of hard liquor a week. Unable or unwilling to elaborate. He has no history of seizures. Patient declining detox at this time. Hedenies head pain or trauma, but notes tongue pain and tongue laceration on the left. He is soiled with urine. MDM / ED Course Luis Colin presented to the emergency department with AMS, witnessed seizure. Differential diagnosis includes but is not limited to seizure, alcohol withdrawal seizure, syncope and collapse, sepsis, polysubstance use, neoplasm, brain bleed, among others. Patient presents post-ictal with intermittent ability to follow commands or participate in exam. PEsignificant for urine incontinence and tongue laceration with fasciculations. 10+10 of PO/IV Valiumordered for suspicion of alcohol withdrawal with seizure. Versed was given by EMS en route. Workup ordered for the above differential. ED Chem with anion gap of 21, bicarb of 19, and Potassium of 3.3. Will supplement. CBC with mild anemia without leukocytosis. Unlikely infectious cause. Initial lactate 11. Will provide fluids x2L Ethanol level negative. Patient given additional Valium Head CT without acute changes. Lactate improved to 1.5 and AMS cleared appropriately. Patient likely to have an alcohol withdrawalseizure not requiring antiepileptics. This provider and nursing discussed detox treatment with patient and he declined each time. Patient requesting to leave. Recommended patient follow up with addiction medicine at the earliest opportunity. Valium PO 20 mg given prior to discharge to help prevent recurrent withdrawal symptoms. Patient expressed understanding and agreement with the plan. Strict return precautions were discussed. Patient was discharged in stable condition. Patient seen in collaboration with ED staff physician. All ordered labs & imaging studies personally reviewed and interpreted as above. Problems Addressed 1 acute or chronic illness or injury that poses a threat to life or bodily function ... Data considered Tests Ordered and Additional history obtained from EMS ... Risk of patient management Diagnosis or treatment significantly limited by social determinants of health and Parenteral controlled substances ... IMPRESSION 1. Alcohol withdrawal seizure with complication () 2. Laceration of tongue, initial encounter Pertinent Physical Exam findings: Vitals: 09/25/23 1613 BP: 161/71 Pulse: 79 Resp: Temp: SpO2: Physical Exam Vitals and nursing note reviewed. Constitutional: General: He is not in acute distress. Appearance: He is well-developed and normal weight. He is not ill-appearing or toxic-appearing. Comments: Disheveled, incontinent of urine HENT: Head: Normocephalic and atraumatic. Nose: Nose normal. Mouth/Throat: Mouth: Mucous membranes are moist. Comments: L side of tongue swollen with mild tongue bite is macerated, unlikely to benefit from emergent repair Eyes: Extraocular Movements: Extraocular movements intact. Conjunctiva/sclera: Conjunctivae normal. Cardiovascular: Rate and Rhythm: Normal rate and regular rhythm. Pulses: Normal pulses. Heart sounds: Normal heart sounds. Pulmonary: Effort: Pulmonary effort is normal. No respiratory distress. Breath sounds: Normal breath sounds. Abdominal: Palpations: Abdomen is soft. Tenderness: There is no abdominal tenderness. There is no guarding or rebound. Musculoskeletal: General: No swelling, tenderness or signs of injury. Normal range of motion. Cervical back: Normal range of motion and neck supple. No tenderness. Skin: General: Skin is warm and dry. Neurological: Mental Status: He is alert and oriented to person, place, and time. Mental status is at baseline. Psychiatric: Mood and Affect: Mood normal. Kathy Lujan PA-C, 09/27/2023 5:03 PM K OFF PERSON * Samina Pace RN - 09/25/2023 12:52 PM CST Bed: B04 Expected date: Expected time: Means of arrival: Comments: Alvaro Low hold K OFF PERSON * Nena Bonilla RN - 09/25/2023 12:35 PM CST Pt had a witnessed seizure today in the vestibule at the [facility] lasting approx 4 mins according to staff. Tongue laceration noted. Last drink of alcohol yesterday morning. Denies seizure history. Tongue vesiculations noted en route 2.5mg Versed IV Glucose 159 SBP 190 K OFF PERSON documented in this encounter Miscellaneous Notes * ED Faculty Note - Ronaldo Burns MD - 09/25/2023 2:15 PM CST Images from the original note were not included. ED Faculty Attestation and Note Luis Colin : 1985 Sex: male Patient Arrival Date and Time: 09/25/2023 12:35 PM FACULTY ATTESTATION I personally saw the patient, performed critical or larios portions of the service, and discussed the care with the Advanced Practice Provider. MDM / ED Course Luis Colin presented to the emergency department with AMS and witnessed seizure. Endorses tongue laceration on left side and pain. PMHx of EtOH abuse, 1L of hard [place] per week. No hx of seizures. Pt declined detox. On exam, hand tremors Hypertensive tongue fasciculations c/w EtOH withdrawal. Lab work up w lactic acidosis, which cleared w IVF. No other significant metabolic abnormality thatwould provoke a seizure. CT head personally reviewed and interpreted and negative for any acute intracranial pathology. Alcohol withdrawal treated with IV and oral valium.Pt improved to the point where he appeared safe for discharge. Recommended discharge to detox facility but pt refused. Problems Addressed / DDx 1 acute or chronic illness or injury that poses a threat to life or bodilyfunction Data considered Tests Ordered, Additional history obtained from EMS, and Independent interpretationof studies Risk of patient management Prescription drug management, Diagnosis or treatment significantly limited by social determinants of health, Decision regarding hospitalization, and Parenteral controlled substances IMPRESSION 1. Alcohol withdrawal seizure with complication () 2. Laceration of tongue, initial encounter Scribed for Ronaldo Burns MD by Marty Sal Scribe, 09/25/2023 2:16 PM I, Ronaldo Burns MD have reviewed the initial documentation provided by the scribe and affirm that it is an accurate restatement of my dictated record of services. Signed: Ronaldo Burns MD, 14:16 09/25/2023 K OFF PERSON documented in this encounter Plan of Treatment Upcoming Encounters Date Type Department Care Team Description 10/26/2023 10:40 AM CRACK OFF PERSON Office [facility] [address] [place] [address] Fina Shultz MD [address] [place] [phone] Surveyor Instrument Assistant, [facility] [place] Scheduled Discharge Disposition: Discharged to home or self care (routine discharge) 10/31/2023 12:00 PM CRACK OFF PERSON Appointment [facility] [address] [place] [address] [address] [place], [place] [phone] 1, Eeg - Outpatient 2, [place] [address] [place] [id number] Scheduled Discharge Disposition: Discharged to home or self care (routine discharge) documented as of this encounter Procedures Procedure Name Priority Date/Time Associated Diagnosis Comments PC ELECTROLYTES PANEL STAT 09/25/2023 3:39 PM CRACK OFF PERSON PC LACTATE (LACTIC ACID) STAT 09/25/2023 3:[address] HEAD NO IV CONTRAST Routine 09/25/2023 1:41 PM CRACK OFF PERSON EXTRA TUBE - DARK GREEN Routine 09/25/2023 12:40 PM CRACK OFF PERSON EXTRA TUBE - LAVENDER Routine 09/25/2023 12:40 PM CRACK OFF PERSON TC LAB BLOOD DRAW BY VENIPUNCTURE Routine 09/25/2023 12:40 PM CRACK OFF PERSON EXTRA TUBE - BLUE Routine 09/25/2023 12: 40 PM CRACK OFF PERSON EXTRA TUBE - SST Routine 09/25/2023 12:4 0 PM CRACK OFF PERSON PC IONIZED,CALCIUM Routine 09/25/2023 12 :40 PM CRACK OFF PERSON PC LAB CBC W/DIFF & PLT Routine 09/25/2023 12:40 PM CRACK OFF PERSON PC LACTATE (LACTIC ACID) STAT 09/25/2023 12:40 PM CRACK OFF PERSON ETHANOL (ETOH) LEVEL, BLOOD Routine 09/25/2023 12:40 PM CRACK OFF PERSON documented in this encounter Results * LACTATE (LACTIC ACID) (09/25/2023 3:39 PM CRACK OFF PERSON) Pathologist [facility] Lactate 1.5 0.7 - 2.1 mmol/L [facility] Blood 09/25/2023 3:39 PM CRACK OFF PERSON 09/25/2023 3:45 PM CRACK OFF PERSON Narrative [facility] - 09/25/2023 3:45 PM CRACK OFF PERSON Send specimen on ice! Ronaldo Burns MD LABORATORY [facility] [address] [place] [phone] * (ABNORMAL) ED CHEMISTRY LABS(NA,K,CL,CO2,GLU,CREAT,CA-IONIZED,ANION GAP) (09/25/2023 3:39 PM CRACK OFF PERSON) Pathologist [facility] Sodium 138 135 - 148 mEq/L [facility] Chloride 104 92 - 108 mEq/L [facility] AnGap 10 8 - 16 mEq/L [facility] Glucose 125(H) 70 - 100 mg/dL [facility] ICA, Actual 4.30(L) 4.40 - 5.20 mg/dL [facility] ICA, pH Corrected 4.47 4.40 - 5.20 mg/dL [facility] Creatinine 0.64(L) 0.70 - 1.25 mg/dL [facility] BICARB 24 22 - 26 mEq/L [facility] eGFR (2020 CKD-EPI) >120 >=60 ml/min/1.7 3m2 [facility] Comment: The estimated glomerular filtration rate (eGFR) was calculated using the CKD-EPI 2020 creatinine equation, which does not include race as a factor. This equation is validated in individuals 18 years of age and older, and eGFR is normalized to a body surface area of 1.73m^2. Potassium 3.9 3.5 - 5.3 mEq/L [facility] Blood 09/25/2023 3:39 PM CRACK OFF PERSON 09/25/2023 3:43 PM CRACK OFF PERSON Ronaldo Burns MD LABORATORY [facility] [address] [address] * CT HEAD NO IV CONTRAST (09/25/2023 1:41 PM CRACK OFF PERSON) Anatomical Region Laterality Modality Skull Computed Tomogra phy 09/25/2023 1:26 PM CRACK OFF PERSON Impressions 09/25/2023 2:24 PM CRACK OFF PERSON Impression: 1. No acute intracranial pathology. 2. [...] Watkins Resident: Rudy Blanchard 09/25/2023 2:24 PM CRACK OFF PERSON Indication: new seizure ??. Comparison: none Technique: [...] Kathy Lujan PA-C RAD CT NEURO * ETHANOL (ETOH) LEVEL, BLOOD (09/25/2023 12:40 PM CRACK OFF PERSON) Pathologist [facility] Ethanol Negative Negative g/dL [facility] Blood 09/25/2023 12:4 0 PM CRACK OFF PERSON 09/25/2023 2:17 PM CRACK OFF PERSON Kathy Lujan PA-C LABORATORY [facility] [address] [place] [address] * (ABNORMAL) ED CHEMISTRY LABS(NA,K,CL,CO2,GLU,CREAT,CA-IONIZED,ANION GAP) (09/25/2023 12:40 PM CRACK OFF PERSON) Pathologist [facility] Sodium 140 135 - 148 mEq/L [facility] Chloride 101 92 - 108 mEq/L [facility] AnGap 21(H) 8 - 16 mEq/L [facility] Glucose 147(H) 70 - 100 mg/dL [facility] ICA, Actual 4.38(L) 4.40 - 5.20 mg/dL [facility] ICA, pH Corrected 4.30(L) 4.40 - 5.20 mg/dL [facility] Creatinine 0.70 0.70 - 1.25 mg/dL [facility] BICARB 19(L) 22 - 26 mEq/L [facility] eGFR (2020 CKD-EPI) 120 >=60 ml/min/1.7 3m2 [facility] Comment: The estimated glomerular filtration rate (eGFR) was calculated using the CKD-EPI 2020 creatinine equation, which does not include race as a factor. This equation is validated in individuals 18 years of age and older, and eGFR is normalized to a body surface area of 1.73m^2. Potassium 3.3(L) 3.5 - 5.3 mEq/L [facility] Blood 09/25/2023 12:4 0 PM CRACK OFF PERSON 09/25/2023 1:24 PM CRACK OFF PERSON Kathy Lujan PA-C LABORATORY [facility] [address] [place] [address] * (ABNORMAL) CBC WITH PLTS/AUTO DIFF (09/25/2023 12:40 PM CRACK OFF PERSON) WBC 6.68 4.00 - 10.00 k/cmm [facility] RBC 3.88(L) 4.60 - 6.00 m/cmm [facility] Hgb 12.8(L) 13.1 - 17.5 g/dL [facility] Hematocrit 39.2(L) 40.0 - 51.0 % [facility] MCV 101.0(H) 80.0 - 100.0 fL [facility] MCH 33.0(H) 25.0 - 32.0 pg [facility] MCHC 32.7 31.0 - 36.0 g/dL [facility] RDW 14.6(H) 11.5 - 14.5 % [facility] Plt 155 150 - 400 k/cmm [facility] MPV 11.5 6.5 - 12.5 fL [facility] Automated Abs Neutrophil 5.15 1.70 - 6.50 k/cmm [facility] Comment:Preliminary ANC, Fin al Result to Follow Abs Immature Granulocyte 0.04 0.00 - 0.09 k/cmm [facility] Comment:The Immature Granulo cyte Absolute count contains metamyelocytes and myelocytes. Abs Neutrophil 5.15 1.70 - 6.50 k/cmm [facility] Abs Lymphocyte 0.93 0.80 - 4.00 k/cmm [facility] Abs Monocyte 0.50 0.20 - 1.00 k/cmm [facility] Abs Eosinophil 0.03 0.00 - 0.60 k/cmm [facility] Abs Basophil 0.03 0.00 - 0.20 k/cmm [facility] Blood 09/25/2023 12:4 0 PM CRACK OFF PERSON 09/25/2023 1:59 PM CRACK OFF PERSON Kathy Lujan PA-C LABORATORY Performing Organization Address City/[facility] Co de Phone Number [facility] [address] [address] * (ABNORMAL) LACTATE (LACTIC ACID) (09/25/2023 12:40 PM CRACK OFF PERSON) Lactate 11.4(H) 0.7 - 2.1 mmol/L [facility] Blood 09/25/2023 12:4 0 PM CRACK OFF PERSON 09/25/2023 1:31 PM CRACK OFF PERSON Narrative [facility] - 09/25/2023 1:32 PM CRACK OFF PERSON Send specimen on ice! Kathy Lujan PA-C LABORATORY Performing Organization Address [facility] Co de Phone Number [facility] [address] [address] * EXTRA TUBE - BLUE (09/25/2023 12:40 PM CRACK OFF PERSON) BLUE TUBE [facility] Comment:Blue top(Sodium citr ate) tubes are kept for 3 days from the collection date. Blood 09/25/2023 12:4 0 PM CRACK OFF PERSON 09/25/2023 1:01 PM CRACK OFF PERSON Outside Provider LABORATORY Performing Organization Address [facility] Co de Phone Number [facility] [address] [address] * EXTRA TUBE - DARK GREEN (09/25/2023 12:40 PM CRACK OFF PERSON) DARK GREEN TUBE Stored [facility] Comment:Dark Green tubes (Li thium Heparin) are stored in the lab for 1 day from the collection date. Blood 09/25/2023 12:4 0 PM CRACK OFF PERSON 09/25/2023 1:01 PM CRACK OFF PERSON Outside Provider LABORATORY Performing Organization Address [facility] Co de Phone Number [facility] [address] [address] * EXTRA TUBE - SST (09/25/2023 12:40 PM CRACK OFF PERSON) SST TUBE Stored [facility] Comment:SST tubes (Serum Sep arator) are stored in the lab for 3 days from the collection date. Blood 09/25/2023 12:4 0 PM CRACK OFF PERSON 09/25/2023 1:01 PM CRACK OFF PERSON Outside Provider LABORATORY Performing Organization Address [facility] Phone Number [address] [phone] * EXTRA TUBE - LAVENDER (09/25/2023 12:40 PM CRACK OFF PERSON) LAVENDER TUBE Stored [facility] Comment:Lavendar (EDTA) tube s collected at [facility] are stored for 3 days from the collection date. Blood 09/25/2023 12:4 0 PM CRACK OFF PERSON 09/25/2023 1:01 PM CRACK OFF PERSON Outside Provider LABORATORY Performing Organization Address [facility] de Phone Number [address] [address] * EXTRA TUBE - KOCH (09/25/2023 12:40 PM CRACK OFF PERSON) KOCH TUBE Stored [facility] Comment:Koch top (Sodium erik uride) tubes are stored in the lab for 3 days from the collection date. Blood 09/25/2023 12:4 0 PM CRACK OFF PERSON 09/25/2023 1:01 PM CRACK OFF PERSON Outside Provider LABORATORY Performing Organization Address [facility] de Phone Number [address] [address] documented in this encounter Visit Diagnoses Diagnosis Alcohol withdrawal seizure with complication ()- Primary Laceration of tongue, initial encounter documented in this encounter Administered Medications Inactive Administered Medications - up to 3 most recent administrations Medication Order MAR Action Action Date Dose Rate Site diazePAM (VALIUM) 5 mg/mL injection 10 mg 10 mg, IV Push, ONE TIME, 1 dose, On Mon09/25/23 at 1315 Given 09/25/2023 1:33 PM CRACK OFF PERSON 10 mg diazePAM (VALIUM) 5 mg/mL injection 10 mg 10 mg, IV Push, ONE TIME, 1 dose, On Mon09/25/23 at 1410 Given 09/25/2023 2:25 PM CRACK OFF PERSON 10 mg diazePAM (VALIUM) tablet 10 mg 10 mg, Oral, ONE TIME, 1 dose, On Mon09/25/23 at 1315 Given 09/25/2023 1:32 PM CRACK OFF PERSON 10 mg diazePAM (VALIUM) tablet 10 mg 10 mg, Oral, ONE TIME, 1 dose, On Mon09/25/23 at 1410 Given 09/25/2023 2:25 PM CRACK OFF PERSON 10 mg diazePAM (VALIUM) tablet 20 mg 20 mg, Oral, ONE TIME, 1 dose, On Mon09/25/23 at 1655 Given 09/25/2023 5:00 PM CRACK OFF PERSON 20 mg potassium chloride (K-NATALIYA) powder 40 mEq 40 mEq, Oral, ONE TIME, 1 dose, On Mon09/25/23 at 1345 Given 09/25/2023 1:52 PM CRACK OFF PERSON 40 mEq sodium chloride 0.9% bolus 1,000 mL 1,000 mL, Intravenous, Administer over 30 Minutes, IV BOLUS, 1 dose, On Mon09/25/23 at 1340 New Bag 09/25/2023 1:40 PM CRACK OFF PERSON 1,000 mL 2000 mL/hr sodium chloride 0.9% bolus 1,000 mL 1,000 mL, Intravenous, Administer over 30 Minutes, IV BOLUS, 1 dose, On Mon09/25/23 at 1350 New Bag 09/25/2023 2:26 PM CRACK OFF PERSON 1,000 mL 2000 mL/hr documented in this encounter Active and Recently Administered Medications Times are shown in CRACK OFF PERSON. Scheduled Medication Order 09/23/2023 09/24/2023 09/25/2023 diazePAM (VALIUM) 5 mg/mL injection 10 mg (COMPLETED) 10 mg, IV Push, ONE TIME, 1 dose, On Mon09/25/23 at 1315 1333 (Given - Provid er: Nena Bonilla RN) diazePAM (VALIUM) 5 mg/mL injection 10 mg (COMPLETED) 10 mg, IV Push, ONE TIME, 1 dose, On Mon09/25/23 at 1410 1425 (Given - Provid er: Nena Bonilla RN) diazePAM (VALIUM) tablet 10 mg (COMPLETED) 10 mg, Oral, ONE TIME, 1 dose, On Mon09/25/23 at 1315 1332 (Given - Provid er: Nena Bonilla RN) diazePAM (VALIUM) tablet 10 mg (COMPLETED) 10 mg, Oral, ONE TIME, 1 dose, On Mon09/25/23 at 1410 1425 (Given - Provid er: Nena Bonilla RN) diazePAM (VALIUM) tablet 20 mg (COMPLETED) 20 mg, Oral, ONE TIME, 1 dose, On Mon09/25/23 at 1655 1700 (Given - Provid er: Nena Bonilla RN) potassium chloride (K-NATALIYA) powder 40 mEq (COMPLETED) 40 mEq, Oral, ONE TIME, 1 dose, On Mon09/25/23 at 1345 1352 (Given - Provid er: Nena Bonilla RN) sodium chloride 0.9% bolus 1,000 mL (COMPLETED) 1,000 mL, Intravenous, Administer over 30 Minutes, IV BOLUS, 1 dose, On Mon09/25/23 at 1340 1340 (New Bag - Prov ider: Nena Bonilla RN)1425 (Infusion completed - Provider: Nena Bonilla RN) sodium chloride 0.9% bolus 1,000 mL (COMPLETED) 1,000 mL, Intravenous, Administer over 30 Minutes, IV BOLUS, 1 dose, On Mon09/25/23 at 1350 1426 (New Bag - Prov ider: Nena Bonilla RN)1551 (Infusion completed - Provider: Nena Bonilla RN) documented in this encounter Care Teams Stick Puller Relationship Specialty Start Date End Date Pcp, [place] [address] PCP - General 08/31/14 Jose Armando Morales MDIV [address] [place] [address] Water Hydrant Installer 02/28/23 10/03/23 documented as of this encounter
--- OUTSIDE RECORDS SUMMARY | 2023-10-19 17:29 | XMS_ITS | Encounter Summary ---
Author Name Unknown Organization [facility] Address [address] [place] [address] Phone Care Team Providers Care Emergency Medical Service Manager Name Role Phone Pcp, No Primary [...] Coronavirus/COVID-19? No / Unsure 10/04/2023 6:06 AM SENIOR TELECOMMUNICATIONS CONSULTANT documented as of this encounter Plan of Treatment Upcoming Encounters Date Type Department Care Team Description 10/26/2023 10:40 AM SENIOR TELECOMMUNICATIONS CONSULTANT Office Visit [facility] [address] [place] [address] Fina Shultz MD [address] [place], [place] [address] Outside Plant Cable Engineer, [facility] Scheduled Discharge Disposition: Discharged to home or self care (routine discharge) 10/31/2023 12:00 PM SENIOR TELECOMMUNICATIONS CONSULTANT [place]ointment [facility] [place] [address] [facility] [address] [place], [place] [id number] 1, Eeg - Outpatient 2, [facility] [place] [address] [place] [address] Scheduled Discharge Disposition: Discharged to home or self care (routine discharge) documented as of this encounter Procedures Procedure Name Priority Date/Time Associated Diagnosis Comments TELEMETRY STRIPS 10/04/2023 5:10 PM SENIOR TELECOMMUNICATIONS CONSULTANT documented in this encounter Results * TELEMETRY STRIPS (10/04/2023 5:10 PM SENIOR TELECOMMUNICATIONS CONSULTANT) Narrative 10/04/2023 5:10 PM SENIOR TELECOMMUNICATIONS CONSULTANT Ordered by an unspecified provider. Provider Unknown RAD ECHO documented in this encounter Visit Diagnoses Not on filedocumented in this encounter Additional Health Concerns Infection Onset Date Last Indicated Resolved Time SARS-CoV-2 Rule-Out 10/04/2023 10/04/2023 10/04/20 7:15 AM SENIOR TELECOMMUNICATIONS CONSULTANT documented as of this encounter Care Teams Emergency Medical Service Manager Relationship Specialty Start Date End Date Pcp, No [place] [place] [address] PCP - General 08/31/14 documented as of this encounter
--- OUTSIDE RECORDS SUMMARY | 2023-10-19 17:30 | XMS_ITS | Encounter Summary ---
Author Name Unknown Organization [facility] [place] Address [address] [place] [address] Phone Care Team Providers Care Sanitation Officer Name Role Phone Pcp, No Primary Care Provider Unavailabl e Jose Armando Morales MDIV Unavailable Unavail able Reason for Visit * Reason Comments Cough Shortness of Breath Encounter Details Date Type Department Care Team Description 07/24/2023 3:11 AM CDT - 07/24/2023 3:37 AM CDT Emergency [facility] Emergency Department [address] [facility] [address] [place], [place] [address] Sergei Grajeda MD [address] [facility] [address] [place], [place] [phone] Bronchitis Discharge Disposition: Discharged to home or [...] suspected to have Coronavirus/COVID-19? No / Unsure 07/24/2023 12:54 AM CDT documented as of this encounter Last Filed Vital Signs Vital Sign Reading Time Taken Comments Blood Pressure 143/82 07/24/2023 12:53 AM CDT Pulse 99 07/24/2023 12:53 AM CDT Temperature 36.4 ??C (97.6 ??F) 07/24/2023 12:53 AM C DT Respiratory Rate 18 07/24/2023 12:53 AM CDT Oxygen Saturation 100% 07/24/2023 12:53 AM CDT Inhaled Oxygen Concentration - - Weight 83 kg (183 lb) 07/24/2023 12:55 AM CDT Height 188 cm (6' 2) 07/24/2023 12:55 AM CDT Body Mass Index 23.5 07/24/2023 12:55 AM CDT documented in this encounter Medications at Time of Discharge Medication Sig Dispensed Refills Start Date End Date predniSONE (DELTASONE) 20 mg oral tablet Take 2 tablets (40 mg) by mouth daily for 5 days. 10 tablet 0 07/24/2023 07/29/2023 azithromycin (ZITHROMAX) 250 mg oral TABS Take [...] as of this encounter ED Notes * Rudy Parry PA-C - 07/24/2023 3:18 AM CDT Images from the original note were not included. ED Provider Note Dixie Smith : 1985 Sex: male Patient Arrival Date and Time: 07/24/2023 12:50 AM HPI Dixie Smith is a 37 y.o. year old male with a pertinent past medical history of adrenal nodule, TB lung, alcohol use disorder and tibial fxs who presents to the emergency department with cough and SOB that began three weeks ago. Patient believes his symptoms have caused a change in his voice.He is concerned he may have pneumonia. Endorses fever/chills and headache. He says he sometimes hasepisodes of congestion and cough with mucus. Denies wheezing. Denies vomiting/diarrhea. Denies OTC medications. Patient would like a sick note for tomorrow. MDM / ED Course 37 y.o. male who presents with cough and SOB that began three weeks ago. See HPI for more details. Ddx includes, but is not limited to: PNA, bronchitis, URI, COVID, flu Vital signs are normal. Exam details below. CXR negative for pulmonary embolism, pneumonia or any other concerning findings. Likely bronchitis.Patient is considered high risk as he was hospitalized a few months ago for pneumonia. Patient provided prednisone and azithromycin for bronchitis, and Tessalon Perles for cough. Work note provided. Discharged in stable condition. Information from pt's chart, including past medical hx, family hx, social hx, nursing/triage notes,outside records, and current prescription medications, were reviewed and subsequently aided the formation of the final assessment and plan. I independently reviewed any imaging studies obtained. The patient was updated with test results. Tests resulted and reviewed, pt deemed to be medically stable for discharge given pt is well-appearing, tolerating PO, and ambulating appropriately. No acute life or limb-threatening condition found requiring hospitalization at this time. Pt discharged from ED and encouraged to f/u with primary doctor or acute care clinic for recheck and ongoing routine care. Pt to return to the ER for any worsening or concerning symptoms. Pt verbalizes understanding and agreement with this plan. All questions answered at time of discharge. Problems Addressed / DDx 1 acute, uncomplicated illness or injury Data considered External notes reviewed and summarized Risk of patient management Prescription drug management and Diagnosis or treatment significantly limited by social determinants of health Tobacco use IMPRESSION 1. Acute cough 2. Bronchitis BP 143/82 (Cuff Location: Right Arm, Patient Position: Sitting) Pulse 99 Temp 36.4 ??C (97.6 ??F) (Oral) Resp 18 Ht 1.88 m (6' 2) Wt 83 kg (183 lb) SpO2 100% BMI 23.50 kg/m?? Physical Exam: GENERAL: WDWN, NAD, non-toxic appearing Head: AT/NC EYES: no conjunctival injection or scleral icterus b/l, normal lids/lacrimals/lashes b/l EARS: no tragal or mastoid tenderness b/l, no erythema, edema or discharge of external canals b/l, no TM bulging, erythema or perforations b/l NOSE: no deformities or flaring, no discharge crying about MOUTH/THROAT: lips, tongue, & oral mucosa appear normal upon inspection NECK: supple LUNGS: CTA-B, non-labored CV: normal S1S2, RRR, no MRG appreciated XR CHEST 2 VIEWS PA + LAT* (Results Pending) Labs Resulted Before Time of ED Departure COVID/FLU COMBO Narrative: Preferred specimen is Nasopharyngeal swab COVID and Influenza testing can be completed on the same swab. Is the patient a healthcare employee: No Is the patient a [employer] ([employer]) Employee: No Date of symptom onset: 07/03/23 Scribed for DAJA Velazquez by Topher Zapata Scribe, 07/24/2023 3:54 AM IRudy PA, have reviewed the initial documentation provided by the scribe and affirm that it is an accurate restatement of my dictated record of services. Signed: DAJA Velazquez, 03:54 07/24/2023 * Krystina Waters RN - 07/24/2023 12:56 AM CDT Pt states he has had a cough the past 3 weeks with intermittent fever and SOB. Pt feels he has pneumonia. Review of chart indicates pt has hx of pneumonia requiring hospitalization. VSS, O2 sat 100% on room air. Pt to x-ray. Denies fever. documented in this encounter Plan of Treatment Upcoming Encounters Date Type Department Care Team Description 10/26/2023 10:40 AM POWERHOUSE MECHANIC HELPER Office Visit [facility] [address] [place] [address] Fina Shultz MD [address] [place], [place] [phone] Warp Hanger, [facility] English Scheduled Discharge Disposition: Discharged to home or self care (routine discharge) 10/31/2023 12:00 PM POWERHOUSE MECHANIC HELPER Appointment [facility] EEG [address] [facility] [address] [place], [place] [id number] 1, Eeg - Outpatient 2, Isd-English [address] [place] [address] Scheduled Discharge Disposition: Discharged to home or self care (routine discharge) documented as of this encounter Procedures Procedure Name Priority Date/Time Associated Diagnosis Comments XR CHEST 2 VIEWS PA + LAT* Routine 07/24/2023 1:06 AM CDT COVID/FLU COMBO STAT 07/24/2023 1:06 AM CDT documented in this encounter Results * XR CHEST 2 VIEWS PA + LAT* (07/24/2023 1:06 AM CDT) Anatomical Region Laterality Modality Chest Computed Radiogr aphy 07/24/2023 2:41 AM CDT Impressions 07/24/2023 7:10 AM CDT Impression: No acute cardiopulmonary findings. I have personally reviewed the image(s) and initial interpretation, and I agree with the findings as documented by the resident/fellow. Reading Radiologist: Srini Cardona Reading Resident: Jj Benites Narrative 07/24/2023 7:10 AM CDT Technique: XR CHEST [...] Radiologist: Srini Cardona Reading Resident: Jj Benites Sergei Grajeda MD RAD XRAY * COVID/FLU COMBO (07/24/2023 1:06 AM CDT) COVID-19 Not Detected Not Detected [facility] Flu A Not Detected Not Detected [facility] Flu B Not Detected Not Detected [facility] Nasopharyngeal Swab 07/24/20 1:06 AM CDT 07/24/2023 1:06 AM CDT Narrative [facility] - 07/24/2023 1:39 AM CDT Preferred specimen is Nasopharyngeal swab COVID and Influenza testing can be completed on the same swab. Is the patient a healthcare employee: No Is the patient a [employer] ([employer]) Employee: No Date of symptom onset: 07/03/23 Sergei Grajeda MD LABORATORY [facility] [address] [address] documented in this encounter Visit Diagnoses Diagnosis Acute cough- Primary Bronchitis Bronchitis, not specified as acute or chronic documented in this encounter Care Teams Sanitation Officer Relationship Specialty Start Date End Date Pcp, No [facility] [place] [address] PCP - General 08/31/14 Jose Armando Morales MDIV [address] [place] [address] [place] [address] 02/28/23 10/03/23 documented as of this encounter
--- OUTSIDE RECORDS SUMMARY | 2023-10-19 17:30 | XMS_ITS | Encounter Summary ---
Author Name Unknown Organization [facility] Address [address] [place] [address] Phone Care Team Providers Care Pc Technician Name Role Phone Pcp, No Primary Care Provider Unavailabl e Jose Armando Morales MDIV Unavailable Unavail able Encounter Details Date Type Department Care Team Description 11/03/2020 Therapy Plan Encounter [facility] Burn/Wound Clinic [address] [facility] [address] [place], [place] [address] Ly Calvin PA-C [address] [facility] [address] [place] [address] Social History Tobacco Use Types Packs/Day Years [...] Exposure Response Date Recorded In the last month, have you been in contact with someone who was confirmed or suspected to have Coronavirus / COVID-19? Unable to assess 11/02/2020 11:55 AM NURSE EXECUTIVE documented as of this encounter Plan of Treatment Upcoming Encounters Date Type Department Care Team Description 10/26/2023 10:40 AM NURSE EXECUTIVE Office Visit [facility] [address] [place], [place] [phone] Fina Shultz MD [address] [place], [place] [phone] Fire Behavior Analyst, danny Estrella Scheduled Discharge Disposition: Discharged to home or self care (routine discharge) 10/31/2023 12:00 PM NURSE EXECUTIVE Appointment [facility] EEG [address] [place], [place] [phone] 1, Eeg - Outpatient 2, Isd-[place] [address] [place] [address] Scheduled Discharge Disposition: Discharged to home or self care (routine discharge) documented as of this encounter Visit Diagnoses Not on filedocumented in this encounter Additional Health Concerns Infection Onset Date Last Indicated Resolved Time SARS-CoV-2 Rule-Out 09/22/2021 09/22/2021 09/25/20 1:09 AM NURSE EXECUTIVE SARS-CoV-2 Rule-Out 02/27/2023 02/27/2023 02/28/20 4:28 AM CDT SARS-CoV-2 Rule-Out 07/24/2023 07/24/2023 07/24/20 1:39 AM CDT SARS-CoV-2 Rule-Out 10/04/2023 10/04/2023 10/04/20 7:15 AM NURSE EXECUTIVE documented as of this encounter Care Teams Pc Technician Relationship Specialty Start Date End Date Pcp, No [facility] [place] [address] PCP - General 08/31/14 Jsoe Armando Morales MDIV [address] [place] [address] Business Rules Analyst 02/28/23 10/03/23 documented as of this encounter
--- OUTSIDE RECORDS SUMMARY | 2023-10-19 17:30 | XMS_ITS | Encounter Summary ---
Author Name Unknown Organization [facility] Address [address] [facility] [place] [address] Phone Care Team Providers Care Drilling Assistant Name Role Phone Pcp, No Primary Care Provider Unavailabl e Jose Armando Morales MDIV Unavailable Unavail able Encounter Details Date Type Department Care Team Description 07/24/2023 Travel Social History Tobacco Use Types Packs/Day [...] AM CDT documented as of this encounter Plan of Treatment Upcoming Encounters Date Type Department Care Team Description 10/26/2023 10:40 AM ACTIVITY THERAPY TEACHER Office Visit [facility] [address] [place] [address] Fina Shultz MD [address] [place], [place] [phone] Service Delivery Analyst, [facility] Scheduled Discharge Disposition: Discharged to home or self care (routine discharge) 10/31/2023 12:00 PM ACTIVITY THERAPY TEACHER Appointment [facility] [address] [facility] [address] [place], [place] [phone] 1, Eeg - Outpatient 2, Isd-[place]ian [address] [place] [address] Scheduled Discharge Disposition: Discharged to home or self care (routine discharge) documented as of this encounter Visit Diagnoses Not on filedocumented in this encounter Additional Health Concerns Infection Onset Date Last Indicated Resolved Time SARS-CoV-2 Rule-Out 07/24/2023 07/24/2023 07/24/20 1:39 AM CDT documented as of this encounter Care Teams Drilling Assistant Relationship Specialty Start Date End Date Pcp, [place] [address] PCP - General 08/31/14 Jose Armando Morales MDIV [address] [place] [address] Tipple Greaser 02/28/23 10/03/23 documented as of this encounter
--- OUTSIDE RECORDS SUMMARY | 2023-10-19 17:30 | XMS_ITS | Encounter Summary ---
Author Name Unknown Organization [facility] Address [address] [place] [address] Phone Care Team Providers Care Township Supervisor Name Role Phone Pcp, No Primary Care Provider Unavailabl e Jose Armando Morales MDIV Unavailable Unavail able Reason for Referral * Consult/Test/Treat (Routine) - New Request Specialty Diagnoses / Procedures Referred By Robert blanchard Referred To Contact Internal Medicine / MEDICINE Diagnoses Community acquired pneumonia of left lower lobe of lung Reinier Cooper MD [address] [place] [address] Referral ID Status Reason Start Date Expiration Date V isits Requested Visits Authorized [id number] New Request 02/28/2023 02/29/2024 1 1 Scheduling Instructions 4-8 weeks Reason for Visit * Reason Comments Shortness of Breath * Auth/Cert (Routine) Specialty Diagnoses / Procedures Referred By Robert blanchard Referred To Contact MEDICINE Diagnoses Community acquired pneumonia of left lower lobe of lung Manuel Granados MD [address] [place] [address] Medicine 3 [address]pt [address] [facility] [address] [place] [address] Referral ID Status Reason Start Date Expiration Date Visits Re quested Visits Authorized [id number] 1 1 Encounter Details Date Type Department Care Team Description 02/26/2023 11:33 PM CDT - 02/28/2023 4:42 PM CDT Hospital Encounter [facility] Medicine [address] [place], [place] [id number] Manuel Granados MD [address] [place], [place] [id number] Kamryn Fernandez MD [address] [place], [place] [address] Reinier Cooper MD [address] [place] [address] Community acquired pneumonia of left lower lobe of lung Discharge Disposition: Discharged to home or self [...] suspected to have Coronavirus/COVID-19? No / Unsure 02/27/2023 12:05 AM CDT documented as of this encounter Last Filed Vital Signs Vital Sign Reading Time Taken Comments Blood Pressure 144/89 02/28/2023 8:39 AM CDT Pulse 55 02/28/2023 8:39 AM CDT Temperature 36.2 ??C (97.2 ??F) 02/28/2023 8:39 AM CD T Respiratory Rate 18 02/28/2023 8:39 AM CDT Oxygen Saturation 98% 02/28/2023 8:39 AM CDT Inhaled Oxygen Concentration - - Weight 83.1 kg (183 lb 3.2 oz) 02/27/2023 12:54 PM CDT Height 188 cm (6' 2) 02/27/2023 12:54 PM CDT Body Mass Index 23.52 02/27/2023 12:54 PM CDT documented in this encounter Discharge Summaries * Reinier Cooper MD - 02/28/2023 12:20 PM CDT MEDICINE DISCHARGE SUMMARY - MS3 Dixie Smith : 1985 Sex: male Date of Admission: 02/26/2023 Date of Discharge: 02/28/2023 Dispostion: Home/Self Care Attending Physician: Reinier Cooper MD Primary care physician: No PCP ADMISSION DIAGNOSES: Community Acquired Pneumonia Hypoxia L Chest Pain, Pleuritic Substance Use Disorder Alcohol Use Disorder Tobacco Dependence Hypocalcemia Vitamin D Deficiency Hyperchloremia Hypotension DISCHARGE DIAGNOSES: Community Acquired Pneumonia L Chest Pain, Pleuritic Substance Use Disorder Alcohol Use Disorder Tobacco Dependence Hypocalcemia Vitamin D Deficiency PROCEDURES/CONSULTS: Addiction Medicine Consult HPI: Dixie Smith is a 37 y.o. male with PMH of significant alcohol use, latent TB s/p treatment in 2013, who presents with difficulty breathing and cough since last night. He reports the shortness of breath came on suddenly while at home and was accompanied by nonproductive cough, fever, chills. He was BIBA from [facility] where he lives. In the ambulance, he was hypoxemic to 86% on RA and started on 8L O2 via NRB. Per EMS, he became agitated and received 10mg Droperidol IM en route. Hedenies associated weight loss, night sweats, or hemoptysis. He reports no sick contacts. He is a current smoker with a 10 year hx, 1/4 ppd. PAST MED HX: Past Medical History: Diagnosis Date Positive QuantiFERON-TB Gold test 12/23/2013 12/10/2013: 0.89 Vitamin D deficiency 12/23/2013 12/18/2013: 11.9; ergocalciferol prescribed HOSPITAL COURSE BY PROBLEM: Community Acquired Pneumonia Hypoxemia, Resolved 3 pack year smoking history, no hx of asthma or COPD. Hx of latent TB, s/p treatment in 2013. Pt initially hypoxic to 86% on RA prehospital & 92% on 6L O2 via NC in ED. Pt has been afebrile sincearrival. Pt has bilateral wheezing (L>R) present over lower lung johnson. No evidence of leukocytosis. VBG on admission demonstrated respiratory alkalosis with pH 7.45, pCO2 29, Bicarb 20 likely sec ondary to hyperventilation. Chest XR revealed bilateral interstitial opacities suggestive of atelectasis, trace left pleural effusion (02/27). Chest CT revealed bilateral (L>R) lower lobe opacitiesw/ wall thickening & mucous plugging suggestive of infection/atelectasis, trace left pleural effusion. Cardiac U/S showed normal cardiac function and euvolemic. Initial differential included pneumonia, COPD exacerbation, reactivated TB, pulmonary embolism, anemia, volume overload, pleural effusion & pneumothorax. Workup to date suggests CAP as most likely ddx vs COPD exacerbation despite no known hx. Started on IV Ceftriaxone & azithromycin in ED, will continue ceftriaxone and change to oral azithromycin. Blood culture positive for Coag (-) Staph presumed to be s. epidermidis & Bacillus sp. (not anthracis) in 1 of 2 bottles. Patient showed improvement following treatment with ceftriaxone & azithromycin which do not cover bacillus sp., both s. Epidermidis & bacillusbelieved to be contaminants and patient not believed to be bacteremic. Will discharge with PO augmentin to complete 5 day course for CAP, today (02/28) is Day 2 of antibiotics. - Augmentin 875-125mg PO BID - Azithromycin 500mg PO BID - Out-patient follow up: - PFTs & evaluation for COPD once at baseline L Chest Pain, Pleuritic Pt reports L chest pain over the 3rd/4th rib at the midclavicular line worsened by deep inspiration. Cardiac U/S revealed no acute pathology as above (02/26). Not believed to be cardiac in nature at this time. Believed to be pleuritic and MSK in nature given current pneumonia. EKG revealed no findings suggestive of cardiogenic etiology (02/28). - Acetaminophen 650mg PO Q4H PRN Substance Use Disorder Alcohol Use Disorder Tobacco Dependence Pt reports drinking 2-3 beers per week, though lives in a wet house. He appears to have history of AUD and may currently be having issues with use. Unclear if pt is using other substances. Addiction medicine consulted. Planned to trail naltrexone prior to discharge but patient left prior to administration. - Addiction consult, recommendations appreciated - Recommend abstinence for all substances - Naltrexone 50mg PO daily - If naltrexone well tolerated, IM Vivitrol 380mg Once. Pt declined - Nicotine lozenges - Obtain LFTs Hypocalcemia Vitamin D Deficiency Pt reports no carpopedal spasm, laryngospasm, or paraesthesias. ICA 3.77 (02/27), Vit D 11 (02/28). - Calcium 500mg PO BID - Vitamin D 50,000 PO Q Weekly Hyperchloremia, Resolved Believed to be result of hypovolemia. Cl 106 (02/28). Hypotension, Resolved Pt noted to be hypotensive to 79/47 at time of arrival to ED, received 1L NS. BP normalized to 141/80 (02/27). Suspected secondary to pre-arrival droperidol and hypovolemia. VTE Prophylaxis - Enoxaparin 40mg SubQ daily, discontinued at discharge. PENDING TESTS RESULTS: Repeat Blood Cultures x2 (Collected 02/28) LFTs (Collected 02/28) RECOMMENDATIONS AND FOLLOWUP: Please contact and establish care with a PCP within 4-8 weeks to discuss your hospitalization and any pending test results as well as obtain additional pulmonary function testing. (See In-Patient After Visit Summary for scheduling instructions) - Repeat CBC and lactate - Work-up adrenal nodule outpt to see if functional, incidental finding on imaging. - repeat EKG as outpt. Looks like possible LVH and intraventricular block. RECOMMENDATIONS OF ANY SUB-SPECIALTY CONSULTANTS: Addiction consult, recommendations as follows - Recommend abstinence for all substances - Naltrexone 50mg PO daily - If naltrexone well tolerated, IM Vivitrol 380mg Once. Pt declined - Nicotine lozenges READMISSION PLANNED WITHIN 30 DAYS OF DISCHARGE? No Hospice Liaison Needed: yes- Nigerien [34] Active Problems: Community acquired pneumonia of left lower lobe of lung Resolved Problems: * No resolved hospital problems. * PHYSICAL EXAMINATION: BP 144/89 (Cuff Location: Left Arm) Pulse 55 Temp 36.2 ??C (97.2 ??F) (Oral) Resp 18 Ht 1.88 m (6' 2) Wt 83.1 kg (183 lb 3.2 oz) SpO2 98% BMI 23.52 kg/m?? Estimated body mass index is 23.52 kg/m?? as calculated from the following: Height as of this encounter: 1.88 m (6' 2). Weight as of this encounter: 83.1 kg (183 lb 3.2 oz). General appearance: alert, cooperative, no distress Head: Normocephalic, without obvious abnormality Eyes: conjunctivae/corneas clear, anicteric. PERRL, EOM's intact. Neck: supple, symmetrical, trachea midline Lungs: slight wheezes heard over LLL, much improved from previous. Clear to auscultation elsewhere. Heart: regular rate and rhythm, S1, S2 normal, no murmur, click, rub or gallop Abdomen: soft, non-tender. No masses, no organomegaly Extremities: extremities normal, atraumatic, no cyanosis or edema Skin: Skin color, texture, turgor normal. No rashes or lesions Neurologic: Alert and oriented X 3, mentation intact, conversing appropriately. ALLERGY Allergies Allergen Reactions Unknown Unknown PLANNED DISCHARGE ORDERS: Medication List START taking these medications amoxicillin-potassium clavulanate 875-125 mg tablet Commonly known as: AUGMENTIN Take 1 tablet by mouth twice daily for 3 days. Indications: Lower Respiratory Tract Infection Start taking on: March 01, 2023 azithromycin 250 mg Tabs Commonly known as: ZITHROMAX Indications: Community Acquired PneumoniaTake 2 tablets on 03/01 in the morning to finish your antibiotic course Start taking on: March 01, 2023 ERGOcalciferol 50,000 UNITS Capsule Commonly known as: VITAMIN D Take 1 capsule (50,000 UNITS) by mouth every week. Start taking on: March 07, 2023 naltrexone 50 mg Tabs Commonly known as: REVIA Take 1 tablet (50 mg) by mouth daily. Indications: Abuse or Misuse of Alcohol nicotine polacrilex 2 mg Lozenge Commonly known as: COMMIT Take 2 mg by mouth every 1 hour as needed for Nicotine Craving. Indications: Nicotine Addiction CONTINUE taking these medications acetaminophen 325 mg tablet Take 1-2 tablets (325-650 mg) by mouth every four hours as needed for Mild Pain or Moderate Pain. sertraline 50 mg tablet Commonly known as: ZOLOFT Where to Get Your Medications These medications were sent to [facility] [place] [id number] Hours: 01/05 amoxicillin-potassium clavulanate 875-125 mg tablet azithromycin 250 mg Tabs ERGOcalciferol 50,000 UNITS Capsule naltrexone 50 mg Tabs nicotine polacrilex 2 mg Lozenge Unable to discuss out patient treatment plan as patient left prior to conversation taking place. Maverick Mata MS, 02/28/2023 12:20 PM Isaac Erwin DO, saw the patient with the medical student and performed, or re-performed, the physical exam and medical decision-making and have verified the accuracy of all the medical student documentation and edited as necessary. Phu Erwin DO, 03/01/2023 7:17 AM DISCHARGE FACULTY NOTE discharge date/time,02/28/2023 4:42 PM, I personally participated in the final review of hospitalization and concur with the discharge plans and follow-up as outlined. I discussed with the resident and agree with the resident???s findings and plan documented in the resident???s note from above. Any revisions by me are documented. The discharge process has taken: less than 30 minutes. Pt not present in room and so I was not able to physically see him before he discharged Reinier Cooper MD, 03/01/2023 4:17 PM documented in this encounter Medications at Time of Discharge Medication Sig Dispensed Refills Start Date End Date amoxicillin-potassium clavulanate (AUGMENTIN) 875-125 mg oral tabletIndications:Low er Respiratory Tract Infection Take 1 tablet by mouth twice daily for 3 days. Indications: Lower Respiratory Tract Infection 6 tablet 0 03/01/2023 03/04/2023 azithromycin (ZITHROMAX) 250 mg oral TABSIndications:Commu nity Acquired Pneumonia Take 2 tablets on 03/01 in the morning to finish your antibiotic course. Indications: Community Acquired Pneumonia 2 tablet 0 03/01/2023 07/24/2023 ERGOcalciferol (VITAMIN D) 50,000 UNITS oral capsule Take 1 capsule (50,000 UNITS) by mouth every week. 8 capsule 0 03/07/2023 10/04/2023 naltrexone (REVIA) 50 mg oral TABSIndications:Alcoh ol Use Disorder Take 1 tablet (50 mg) by mouth daily. Indications: Abuse or Misuse of Alcohol 30 tablet 0 02/28/2023 10/04/2023 nicotine polacrilex (COMMIT) 2 mg mouth/throat lozengeIndications:Ni cotine Dependence Dissolve 1 lozenge (2 mg) in [...] 03/29/2020 10/04/2023 documented as of this encounter Progress Notes * Mohit Jarquin RN - 02/28/2023 2:46 PM CDTSummary: Discharge Planning Care Coordination Assessment Patient Name: Dixie Smith Date: 02/28/2023 Expected DC Date: 03/01/2023 Social Information Hospice Liaison Used: Yes, [facility] transportation solutions manager (danish) Decision Maker at Admission: Self Living Situation: Home Patient Identified Support System: family Services Receiving: None Complex Medical Needs: None Transportation Used for Discharge: Taxi Safety Concerns: None Behavioral Health Concerns: None Patient Family Goals Patient's Discharge Goal: Return home Family's Discharge Goal: unk Plan/Interventions Discharge Plan: Home Patient Information Verification Verified demographic information, including SSN, Next of Kin, and Guardianship: Yes Verified PCP: Not known If post-acute placement is needed, have vaccination status needs been addressed?: Yes Risks for Readmission: None Summary of pertinent information: pt resting comfortably in bed, able to understand basic questionsand respond, but requested an interpretor. [facility] phone interpretor used. Pt reports feeling better and requesting to go home. Pt does not have a car and requests a taxi. Reports he has good support from friends and family and feels safe in his residence. Mohit Jarquin RN, 02/28/2023 2:46 PM * Jose Armando Morales MDIV - 02/28/2023 1:49 PM CDT SPIRITUAL CARE VISIT SUMMARY Dixie Smith : 1985 Sex: male LOS: 1 day Reason for visit: Follow Up Assessment: Intervention: Lead/support spiritual rituals;Compassionate support Outcome: Notes: Plan: Spiritual Care Team is available to support patient and family as needed via pager [phone]. Jose Armando Morales MDIV, 02/28/2023 1:49 PM Pager: [phone] * Pippa Hutchinson RN - 02/27/2023 12:43 PM CDT NURSING ADMISSION NOTE Dixie Smith : 1985 SEX: male D: Dixie Smith was admitted to R5 712-02 from ED at 1240 for Community acquired pneumonia of left lower lobe of lung . Patient: alert. Skin: Normal in appearance without lesions, rash or lacerations. Pain: aching. BP 137/75 (Cuff Location: Right Arm) Pulse 84 Temp 37.3 ??C (99.1 ??F) (Oral) Resp 16 SpO2 95% A: Pt oriented to unit, room, and use of call light. Routine admit screens started. Telemetry not ordered. R:PATIENT AND/OR FAMILY: patient was able to verbalize understanding of unit policy and plan of care. Questions answered. Learning considerations: None. P: Implement orders as received. Will continue to monitor, follow plan of care, and notify providerand/or team as needed. Pippa Hutchinson, RN, 02/27/2023 12:43 PM documented in this encounter H&P Notes * Phu Erwin DO - 02/27/2023 2:49 PM CDT MEDICINE ADMISSION HISTORY AND PHYSICAL - MS3 Dixie Smith : 1985 Sex: male Brief Patient Summary: Patient is a 37 y.o. male with PMH of significant alcohol use, latent TB s/ptreatment in 2013, admitted on 02/26/2023 with dyspnea & hypoxia secondary to suspected community acquired pneumonia. Treated with IV ceftriaxone and azithromycin that was started in the ED. Now saturating approprietly on room air. Will likely discharge tomorrow with oral antibiotics. Hospital Problem List Active Problems: Community acquired pneumonia of left lower lobe of lung Resolved Problems: * No resolved hospital problems. * Assessment and Plan by Problem: Community Acquired Pneumonia 3 pack year smoking history, no hx of asthma or COPD. Hx of latent TB, s/p treatment in 2013. Pt initially hypoxic to 86% on RA prehospital & 92% on 6L O2 via NC in ED. Pt has been afebrile sincearrival. Pt has bilateral wheezing (L>R) present over lower lung johnson. No evidence of leukocytosis. VBG on admission demonstrated respiratory alkalosis with pH 7.45, pCO2 29, Bicarb 20 likely sec ondary to hyperventilation. Chest XR revealed bilateral interstitial opacities suggestive of atelectasis, trace left pleural effusion (02/27). Chest CT revealed bilateral (L>R) lower lobe opacitiesw/ wall thickening & mucous plugging suggestive of infection/atelectasis, trace left pleural effusion. Cardiac U/S showed normal cardiac function and euvolemic. Initial differential included pneumonia, COPD exacerbation, reactivated TB, pulmonary embolism, anemia, volume overload, pleural effusion & pneumothorax. Workup to date suggests CAPas most likely ddx vs COPD exacerbation despite no known hx. Started on IV Ceftriaxone & azithromycin in ED, will continue ceftriaxone and changeto oral azithromycin. - Ceftriaxone 2g IV Q24H - Azithromycin 500mg PO Q24H - CBC, BMP AM - Out-patient follow up: - PFTs & evaluation for COPD once at baseline L Chest Pain, Pleuritic Pt reports L chest pain over the 3rd/4th rib at the midclavicular line worsened by deep inspiration. Cardiac U/S revealed no acute pathology as above (02/26). CT Chest did not demonstrate any evidenceof cardiac enlargement or pulmonary embolism. Not believed to be cardiac in nature at this time. Believed to be pleuritic and MSK in nature given current pneumonia. Will obtain EKG to rule out cardiac pathology. - EKG pending - Acetaminophen 650mg PO Q4H PRN Substance use disorder, possible Pt reports drinking 2-3 beers per week, though lives in a wet house. He appears to have history of AUD and may currently be having issues with use. Unclear if pt is using other substances. He is opento seeing Addiction while inpatient. - Addiction consult Hypocalcemia Pt reports no carpopedal spasm, laryngospasm, or paraesthesias. - Vit D level AM - Ca Supplementation Hyperchloremia Believed to be result of hypovolemia. - Continue to monitor Hypotension, Resolved Pt noted to be hypotensive to 79/47 at time of arrival to ED, received 1L NS. BP normalized to 141/80 (02/27). Suspected secondary to pre-arrival droperidol and hypovolemia. - Continue to monitor VTE Prophylaxis - Enoxaparin 40mg SubQ QD Code Status: FULL CODE Accepting of Blood Transfusions. Chief Complaint: Dyspnea, Cough History of Present Illness: Dixie Smith is a 37 y.o. male with PMH of significant alcohol use, latent TB s/p treatment [id number], who presents with difficulty breathing and cough since last night. He reports the shortness of breath came on suddenly while at home and was accompanied by nonproductive cough, fever, chills. He was BIBA from [facility] where he lives. In the ambulance, he was hypoxemic to 86% on RA and started on 8L O2 via NRB. Per EMS, he became agitated and received 10mg Droperidol IM en route. He denies associated weight loss, night sweats, or hemoptysis. He reports no sick contacts. He is a currentsmoker with a 10 year hx, 1/4 ppd. Medical/Surgical History : Past Medical History: Diagnosis Date Positive QuantiFERON-TB Gold test 12/23/2013 12/10/2013: 0.89 Vitamin D deficiency 12/23/2013 12/18/2013: 11.9; ergocalciferol prescribed Past Surgical History: Procedure Laterality Date ARCH [...] Surgeon: Julio Cesar Prasad MD; Service: Orthopedics Psychosocial History: Occupational History Not on file Tobacco Use Smoking status: Every Day Packs/day: 0.50 Types: Cigarettes Start date: 1986 Smokeless tobacco: Current Substance and Sexual Activity Alcohol use: Yes Alcohol/week: 3.3 standard drinks of alcohol Types: 4 Cans of beer per week Drug use: No Sexual activity: Never Social History Narrative Merged History Encounter Merged History Encounter Merged History Encounter Family History: (???non-contributory?? or ???no history on file?? is not recommended) No family history on file. Medications: Medications Prior to Admission Medication Sig sertraline (ZOLOFT) 50 mg oral tablet Take 1 tablet (50 mg) by mouth daily. acetaminophen 325 mg oral tablet Take 1-2 tablets (325-650 mg) by mouth every four hours as needed for Mild Pain or Moderate Pain. Allergies: Allergies Allergen Reactions Unknown Unknown Review of systems: Complete review of systems done as noted below and/or in the History of Present Illness. All other systems negative. Physical Exam: BP 141/80 (Cuff Location: Left Arm) Pulse 80 Temp 37.2 ??C (99 ??F) (Oral) Resp 20 Ht 1.88 m (6' 2) Wt 83.1 kg (183 lb 3.2 oz) SpO2 93% BMI 23.52 kg/m?? Estimated body mass index is 23.52 kg/m?? as calculated from the following: Height as of this encounter: 1.88 m (6' 2). Weight as of this encounter: 83.1 kg (183 lb 3.2 oz). General appearance: alert, cooperative, no distress Eyes: conjunctivae/corneas clear. EOM's intact. Neck: supple, symmetrical, trachea midline Back: no skin lesions, erythema, or scars Lungs: wheezes auscultated over L base > R base Heart: regular rate and rhythm, S1, S2 normal Abdomen: soft, non-tender. No masses, no organomegaly Extremities: extremities normal, atraumatic, no cyanosis or edema Skin: Skin color, texture, turgor normal. No rashes or lesions Labs: BMP Lab Results Component Value Date/Time CA 9.0 11/23/2019 1413 CHLORIDE 114 (H) 02/27/2023 0005 CO2 23 11/23/2019 1413 CR 0.92 02/27/2023 0005 GLU 97 02/27/2023 0005 K 3.6 02/27/2023 0005 NA 143 02/27/2023 0005 UN 6 11/23/2019 1413 CBC Lab Results Component Value Date/Time HCT 40.7 02/27/2023 0005 HGB 13.6 02/27/2023 0005 PLT 211 02/27/2023 0005 RBC 4.24 (L) 02/27/2023 0005 WBC 9.52 02/27/2023 0005 Other Diagnostic Studies: I have independently viewed the radiology images. Primary care physician: No PCP Attending Physician: Kamryn Fernandez MD Peter O Baker, MS 02/27/2023 14:49 Phu Erwin, DO PGY-1, Medicine Pager Telemediq Associated attestation - Kamryn Fernandez MD - 02/27/2023 5:53 PM CDT MEDICINE FACULTY NOTE I saw and evaluated the patient today, 02/27/2023. I discussed with the resident and agree with the resident???s findings and plan documented in the resident???s note. Any revisions by me are documented. Kamryn Fernandez MD, 02/27/2023 5:53 PM Internal Medicine/Pedatrics documented in this encounter Consult Notes * Juliet Juan PharmD - 02/28/2023 12:57 PM CDTAssociated Order(s): DISCHARGE MED REC FINAL REVIEW BY PHARMACY PHARMACY DISCHARGE NOTE Dixie Smith : 1985 Sex: male Pharmacy service was consulted for review of patient's discharge medications. Planned discharge medications are: Medication List Medications Indications acetaminophen 325 mg tablet Take 1-2 tablets (325-650 mg) by mouth every four hours as needed for Mild Pain or Moderate Pain. amoxicillin-potassium clavulanate 875-125 mg tablet Commonly known as: AUGMENTIN Take 1 tablet by mouth twice daily for 3 days. Indications: Lower Respiratory Tract Infection Start taking on: March 01, 2023 Indications: Lower Respiratory Tract Infection NEW (EOT: 03/03/23) azithromycin 250 mg Tabs Commonly known as: ZITHROMAX Take 2 tablets on 03/01 in the morning to finish your antibiotic course. Indications: Community Acquired Pneumonia Start taking on: March 01, 2023 Indications: Community Acquired Pneumonia NEW (EOT: 03/01/23) ERGOcalciferol 50,000 UNITS Capsule Commonly known as: VITAMIN D Take 1 capsule (50,000 UNITS) by mouth every week. Start taking on: March 07, 2023 NEW naltrexone 50 mg Tabs Commonly known as: REVIA Take 1 tablet (50 mg) by mouth daily. Indications: Abuse or Misuse of Alcohol Indications: Abuse or Misuse of Alcohol NEW nicotine polacrilex 2 mg Lozenge Commonly known as: COMMIT Dissolve 1 lozenge (2 mg) in mouth every 1 hour as needed for nicotine craving. Indications: Nicotine Addiction NEW sertraline 50 mg tablet Commonly known as: ZOLOFT Take 1 tablet (50 mg) by mouth daily. Assessment: Pertinent points to note: I have reviewed the patient's medications for discharge and have discussed the necessary changes with the provider. Changes have been made and medication list updated and complete. Please page with any questions. Juliet Juan PharmD 02/28/2023 12:57 For questions regarding this note, please contact pharmacist on service at [facility] ([facility]) or [phone]. If no response within needed timeframe, please contact central pharmacy via phone at [phone]. * Yuliet Willard MBBS - 02/28/2023 12:24 PM CDTAssociated Order(s): CONSULT TO ADDICTION MEDICINE PHYSICIAN/ADVANCED PRACTICE PROVIDER Addiction provider consult completed on 02/28/2023 Yuliet Willard MBBS, 02/28/2023 12:24 PM documented in this encounter ED Notes * Amarilis Montiel, - 02/27/2023 8:22 AM CDT Transfer of Care Note Patient: Dixie Smith : 1985 Age: 37 y.o. male Sign out received from Dr. Gifford. Please see original ED provider note for further details. PERTINENT HPI, PMH, & ED COURSE In brief, 37 y.o. male with a history of MDD, homelessness. Pt presented for SOB and was requiring 10L O2 via facemaker. ED Course CBC without leukocytosis, ED Chem unremarkable CXR showed mild bilateral opacities and right basilar and retrocardiac opacities CT chest showed left greater than right lower lobe opacities and bronchial wall thickening and mucous plugging Azithromycin and Ceftriaxone started Covid/flu negative Still needing O2 Pended to medicine Work-UP Pending Follow up plan and sign out FINAL ED COURSE, DISPOSITION, AND PLAN ED Course as of 02/27/23 1206 Mon February 27, 2023 0940 Pt still hypoxic on RA. Was noted to be 90%. Put on 2L NC. Upon assuming care, patient was assessed at bedside and is reportedly feeling better. Patient's O2 saturation on RA was 90%. Pt was put back on 2L NC. Patient remained hemodynamically stable throughout their stay in the ED. No significant changes from prior provider's note. Report called to admitting team. Patient transported to floor without incident. Final Clinical Impression CAP Disposition and Plan Pt being admitted to medicine team for continued management of CAP and new O2 requirement. Transported to floor without incident. Amarilis Montiel DO, 02/27/2023 8:22 AM Emergency Medicine/Internal Medicine Resident PGY-1 * Carol Bee RN - 02/27/2023 8:12 AM CDT ED to IP Nursing Handoff Note S (Situation) Reason for Admission: 1. Community acquired pneumonia of left lower lobe of lung Arrives to ED from: Home Precautions/Isolation (from ED Admit Order): No B (Background) Pertinent Medical History for This Admission: Yes, Past Medical History: Diagnosis Date Positive QuantiFERON-TB Gold test 12/23/2013 12/10/2013: 0.89 Vitamin D deficiency 12/23/2013 12/18/2013: 11.9; ergocalciferol prescribed Pertinent Social History: Yes, Occupational History Not on file Tobacco Use Smoking status: Every Day Packs/day: 0.50 Types: Cigarettes Start date: 1984 Smokeless tobacco: Current Substance and Sexual Activity Alcohol use: Yes Alcohol/week: 3.3 standard drinks of alcohol Types: 4 Cans of beer per week Drug use: No Sexual activity: Never Social History Narrative Merged History Encounter Merged History Encounter Merged History Encounter A (Assessment) Vital Signs: BP 102/72 (Cuff Location: Right Arm, Patient Position: Lying Down) Pulse 88 Temp 37.3 ??C (99.1 ??F) (Oral) Resp 16 SpO2 100% Oxygen: Nasal Cannula, 3 L/min Mobility: Independent Mental Status: Oriented Fall Risk: No Skin/Wound Issue Present on Arrival to ED: No Telemetry Needed (from ED Admit Order): No Lines/Drains/Portacath: IV lines 18RFA R (Recommendations) Radiology/Labs Complete: Yes Specialty Bed: N/A Safety Concerns/Continuous Monitoring: None Elopement Risk Score: No data recorded Combative: No Restraints: None Suicide Risk Level: No Risk Visitor Present: No Destination/Bed Type (from ED Admit Order): Floor [5] Patient Belongings Documented: Other Considerations: N/A RN: Carol Bee RN * Jane Gifford MD - 02/27/2023 7:03 AM CDT Transfer of Care Note Patient: Dixie Smith : 1985 Age: 37 y.o. male Sign out received from Jameson Larkin. Please see original ED provider note for further details. PERTINENT HPI, PMH, & ED COURSE In brief, 37 y.o. male with a history of AUD presenting with SOB, CP, intoxicated, stays at wet house. Required 10 droperidol for AMS, been sleepy since in ED. Septic work up pending, requiring 10 L face mask c/b snoring from sedation. XR with opacification, CT follow up demonstrated likely CAP, started on IV ceftriaxone and azithromycin. Lactate 2.2, WBC 9.52. Work-UP Pending Blood cultures Sign out to medicine FINAL ED COURSE, DISPOSITION, AND PLAN BP 108/67 (Cuff Location: Right Arm) Pulse 87 Temp 37.3 ??C (99.1 ??F) (Oral) Resp 16 SpO2 (!) 90% Upon assuming care, I reviewed the chart, results of studies performed during their course in the ED, re-examined the patient, and discussed their care and plan with my supervising attending. The patient remained in the emergency department through the end of my shift. Their care was signedout [id number] with the oncoming provider. Final Clinical Impression CAP Disposition and Plan Admit to medicine Jane Gifford MD PGY-1 Pager [employer] Dictation Disclaimer: Some notes are completed with voice-recognition dictation software. As a result, there may be errors in the script that have gone undetected. Errors are generally corrected in real time. Please contact me via [employer] staff message if you note any errors requiring clarification. * Lu Hawkins RN - 02/27/2023 12:09 AM CDT O2 desats to 84% with NC 4L. O2 6L with NRB mask applied * Jameson Larkin PA-C - 02/27/2023 12:02 AM CDT Images from the original note were not included. ED Provider Note Dixie Smith : 1985 Sex: male Patient Arrival Date and Time: 02/26/2023 11:33 PM HPI Dixie Smith presented to the emergency department with shortness of breath. Patient reportedly living in a wet house at this time, experiencing progressively worsening SOB. Oxygen found to be 86% on room air by EMS, NRB mask applied in route. Patient endorsed EtOH use and was agitated towardsEMS, required 10 mg IM droperidol in route. Hypotensive at 86/50 during transport. Patient without history of asthma or COPD. Patient was unable to elaborate further on history of present illness as he was somnolent and not willing to converse with provider upon assessment. MDM / ED Course Differential diagnosis include but are not limited to PE, pneumonia, pleural effusion, asthma exacerbation, COPD exacerbation etc. Cardiac ultrasound with grossly normal cardiac function and no evidence of pulmonary edema or consolidation. CXR did show bilateral interstitial opacities and small left pleural effusion. Given thesefindings and need for supplemental oxygen at this time there is concern for pneumonia. Ordered CT chest Noncon for further investigation. CT chest did show left lower lobe opacities concerning for infection and trace left pleural effusion. Patient remained somnolent during ED course likely due to EtOH use and IM droperidol given by EMS in route, so was not able to obtain a thorough ROS or HPI from patient. COVID and influenza negative. Lower suspicion for PE versus pneumonia as patient does not have riskfactors for PE and is without tachypnea or tachycardia at this time and CT demonstrated infectious findings as probable cause for increased oxygen requirement and tachypnea. Per chart review patient does not have a history of asthma or COPD. Plan -IV ceftriaxone and IV azithromycin for presumed community-acquired pneumonia -1 L normal saline bolus - Blood cultures, CBC, ED CHEM and lactate ordered - Admit to medicine for further management of CAP requiring supplemental oxygen. Problems Addressed / DDx ??1 undiagnosed new problem with uncertain prognosis and ??1 acute illnesswith systemic symptoms Data considered External notes reviewed and summarized, Tests Ordered, Additional tests considered but not ordered, and Independent interpretation of studies Risk of patient management Prescription drug management and Decision regarding hospitalization ED Course as of 02/27/23 2144 MonFebruary 27, 2023 0225 XR CHEST 1 VIEW AP OR PA* Mild bilateral interstitial opacities, likely pulmonary edema/atelectasis. Right basilar and retrocardiac opacities likely atelectasis versus consolidation. 2. Trace left pleural effusion. IMPRESSION 1. Community acquired pneumonia of left lower lobe of lung Pertinent Physical Exam findings: Physical Exam Constitutional: Comments: somnolent HENT: Head: Normocephalic and atraumatic. Cardiovascular: Rate and Rhythm: Normal rate and regular rhythm. Heart sounds: Normal heart sounds. Pulmonary: Effort: Tachypnea and respiratory distress present. Breath sounds: No wheezing, rhonchi or rales. Abdominal: General: Abdomen is flat. Bowel sounds are normal. Palpations: Abdomen is soft. Musculoskeletal: Right lower leg: No edema. Left lower leg: No edema. Skin: General: Skin is warm and dry. Capillary Refill: Capillary refill takes less than 2 seconds. Neurological: General: No focal deficit present. Psychiatric: Behavior: Behavior is uncooperative. The patient was signed out to Dr David for ongoing management Jameson Larkin PA-C, 02/27/2023 12:02 AM * Lu Hawkins RN - 02/26/2023 11:38 PM CDT Pt BIBA from [address] ([facility]) with c/o SOB. Per EMS report, pt has been experiencing SOB for the past couple month and progressively worsen. Pt has no hx of asthma or COPD. O2 86% onRA when fire checked initially and O2 8L with NRB mask applied. Pt was agitated towards EMS and IM Droperidol 10 mg given en route. BP 86/50, 95% RA en route. * Geo Najera RN - 02/26/2023 11:33 PM CDT Bed: B08 Expected date: Expected time: Means of arrival: Comments: 411 40M SOB documented in this encounter Miscellaneous Notes * Restricted notes were excluded * Discharge non-MD/non-PROSPER Summaries - Anival See RN - 02/28/2023 4:42 PM CDT DISCHARGE NOTE D: Patient is being discharged. A: (As documented in the Discharge Planning Flowsheet) Discharge Instructions (AVS): AVS given Discharge clothing/valuables: has adequate clothing Discharge medications: patient received medications Home equipment status: no equipment needed Home equipment/supplies recommended: none Final discharge destination: Home or self care R: The patient understood the AVS. P: Support patient if they call back with questions. Pt refused to eat naltrexone during discharge, pt stated he will take it later as he don;t want to throw up on the way out. Pt agreed to take the meds outpt. * Nursing Assessment - Mary Jean RN - 02/28/2023 1:38 PM CDT Nursing Assessment Head to Toe Head to Toe Assessment Shift Summary Shift Summary Pt is A & O x 3, denies pain or discomfort. Denies respiratory discomfort. IV ABX infused per orders. Ambulated o the unit multiple times, says he feels better today. Ind with cares. BP 144/89 (Cuff Location: Left Arm) Pulse 55 Temp 36.2 ??C (97.2 ??F) (Oral) Resp 18 Ht 1.88 m (6' 2) Wt 83.1 kg (183 lb 3.2 oz) SpO2 98% BMI 23.52 kg/m?? Neurologic/Cognitive Within Defined Limits HEENT Within Defined Limits Cardiac Within Defined Limits Respiratory Within defined limits Neurovascular Within Defined Limits Gastrointestinal Within Defined Limits Genitourinary Within Defined Limits Musculoskeletal Assessment Within Defined Limits except for: Musculoskeletal Assessment: General Mobility: Generalized weakness Integumentary Within Defined Limits Patient Lines/Drains/Airways Status Active LDAs Name Placement date Placement time Site Days Peripheral IV 02/26/23 18 gauge Right Forearm 02/26/23 -- -- 2 Peripheral IV 02/28/23 18 gauge;1 3/4 in length Left;Posterior Forearm 02/28/23 0410 -- less than 1 Wound Mouth removal of hardware surgical procedural wound Inner;Left surgical wound 11/23/19 1104 -- 1193 Incision: Jaw Left;other (see comments) 11/23/19 1100 -- 1193 Psychosocial Within Defined Limits * Addiction Medicine Consult - Yuliet Willard MBBS - 02/28/2023 8:48 AM CDT ADDICTION MEDICINE PROVIDER CONSULT Dixie Smith : 1985 Sex: male DISCLOSURE OF THIS MATERIAL IS PROHIBITED BY LAW. Do not copy this information into the medical record. REASON FOR CONSULT: I was asked to see Dixie Smith by Reinier Cooper regarding alcohol usedisorder Addiction Medicine Problem List: Alcohol use disorder, severe Tobacco dependence Depression, unspecified Community-acquired pneumonia Recommendations: Recommend abstinence from all substances Start p.o. naltrexone 50 mg daily If patient tolerates, okay to give a dose of IM Vivitrol 380 mg 1 time today prior to discharge Recommend nicotine lozenges Discussion: Moderate/Severe alcohol use disorder is a chronic, often lifelong condition with an acute exacerbation causing/complicating this hospital admission Social Determinants of Health impacting care: The patient speaks a language other than Hebrew. I reviewed the patient's history with the primary team regarding recommendations PDMP reviewed: No controlled prescriptions in the last year Care Everywhere reviewed. ED Visits/Hospitalizations related to substance use disorder: 05/04/2021-Alcohol intoxication HPI: A [place]ien transportation solutions manager interpreted over video. Patient is a 37 y.o. male with past medical history of alcohol use disorder, latent TB s/p treatment in 2013, depression unspecified admitted on 02/26/2023 for dyspnea and hypoxia secondary to community-acquired pneumonia. He has been treated with antibiotics. Addiction medicine consulted to evaluate for alcohol use. Patient states that his first drink of alcohol was 10 years ago. He notes that alcohol use caused him issues in the past including DWI, fighting. At that time, he was drinking as much as 12 beers perday with occasional liquor. Patient notes that he was in treatment for a year in 2021. He was soberfrom alcohol for a year. However, some events happened leading him to relapse about 7 months ago. Unfortunately, he notes that he had some issues which he thinks were related to alcohol and went to [facility]. Patient states that he has not had a drink of alcohol for 5 months. However, he notes that he has been having cravings and wants a medication to help with cravings. Other substance use: Patient smokes about 10 or more cigarettes per day. He would like a medicationto help him quit smoking. He prefers lozenges. He states that he lives in an apartment by himself. He denies currently being in a wet house. DSM-5 criteria for substance use disorder: Meets at least 2 of the 11 criteria in the past 12 months including but not limited to Continuing to use substance despite consequences Unable to carry out major obligations due to use Recurrent use of substance in physically hazardous situations Continued use despite personal problems exacerbated substance use Tolerance Withdrawal Using greater amounts or longer than intended Desire or unsuccessful efforts to cut down use Use despite acknowledgment of physical or psychological difficulties from using substance Craving or a strong desire to use substance Substance-related Medications: Current: None Previous: None Review of systems: Complete review of systems done as noted below and/or in the History of Present Illness. All other systems negative. Medical/Surgical History: Past Medical History: Diagnosis Date Positive QuantiFERON-TB Gold test 12/23/2013 12/10/2013: 0.89 Vitamin D deficiency 12/23/2013 12/18/2013: 11.9; ergocalciferol prescribed Past Surgical History: Procedure Laterality Date ARCH [...] Julio Cesar Prasad MD; Service: Orthopedics Family History: Family history of seizures: No Family history of substance use disorders No Physical Exam: BP 144/89 (Cuff Location: Left Arm) Pulse 55 Temp 36.2 ??C (97.2 ??F) (Oral) Resp 18 Ht 1.88 m (6' 2) Wt 83.1 kg (183 lb 3.2 oz) SpO2 98% BMI 23.52 kg/m?? Estimated body mass index is 23.52 kg/m?? as calculated from the following: Height as of this encounter: 1.88 m (6' 2). Weight as of this encounter: 83.1 kg (183 lb 3.2 oz). Physical Exam Constitutional: General: He is not in acute distress. HENT: Head: Normocephalic and atraumatic. Eyes: Extraocular Movements: Extraocular movements intact. Pupils: Pupils are equal, round, and reactive to light. Pulmonary: Effort: Pulmonary effort is normal. Musculoskeletal: Cervical back: Neck supple. Skin: General: Skin is warm and dry. Neurological: General: No focal deficit present. Mental Status: He is alert and oriented to person, place, and time. Psychiatric: Mood and Affect: Mood normal. Behavior: Behavior normal. Labs: I have reviewed the admission and today's laboratory results in the Epic record CMP Lab Results Component Value Date/Time ALT 28 02/26/2014 1800 CA 9.0 11/23/2019 1413 CHLORIDE 114 (H) 02/27/2023 0005 CO2 23 11/23/2019 1413 CR 0.92 02/27/2023 0005 GLU 97 02/27/2023 0005 K 3.6 02/27/2023 0005 NA 143 02/27/2023 0005 UN 6 11/23/2019 1413 Urine Drug Screen No results found for: ACETUR, AMPHETAMINE, BARBITURATE, BENZUR, COCAINEUR, COMMENTUR, ETOH, LSDUR, METHUR, OPIUR, OXYCODUR, PCPUR, PROPOX, SALUR Other Diagnostic Studies: I reviewed the patient's chest radiograph Right basilar and retrocardiac opacities, atelectasis versus consolidation Primary care physician: No PCP Total time spent on this encounter, including pre-visit review of separately obtained history, [id number] interaction performing medically appropriate physical exam, patient counseling/education, interpretation of diagnostic results, care coordination and documentation was 80 minutes. MARIPOSA Tom 02/28/2023 08:48 DISCLOSURE OF THIS MATERIAL IS PROHIBITED BY LAW. 42 CFR part 2 prohibits disclosure of these records. This section of the Code of Federal Regulation prohibits you from making disclosure of this information unless disclosure is expressly permitted by the written consent of the person to whom it pertains or has otherwise permitted by 42 CFR, Part 2. A general authorization for the release of medical or other information is NOT sufficient for this purpose. 42 CFR , Part 2 restricts any use of theinformation to criminally investigate or prosecute any alcohol and/or drug abuse by the client. Associated attestation - Erlinda Smalls MD - 02/28/2023 5:38 PM CDT FACULTY WITH FELLOW: I saw and evaluated the patient today, 02/28/2023. I discussed with the fellow and agree with the fellow's findings and plan documented in the fellow's note. Any revisions by me are documented. Briefly, 37-year-old male meeting criteria for alcohol use disorder, severe who initially presentedin setting of pneumonia. Mr. Smith has not previously tried medications to support alcohol abstinence and is agreeable to starting naltrexone IM at this time. Reviewed with patient that there are additional options for treatment of alcohol use disorder if his cravings persist. Encourage follow-up with the addiction medicine team as needed in the future. Erlinda Smalls MD, 02/28/2023 5:38 PM * Nursing Assessment - Mary Jean RN - 02/28/2023 6:39 AM CDT Nursing Assessment Head to Toe Head to Toe Assessment Shift Summary Shift Summary Pt is A & O x 3, c/o back pain, prn tylenol administered x 1, reports relief after medications.IV ABX infused per orders. Denies respiratory discomfort. Ind with cares. Neurologic/Cognitive Within Defined Limits HEENT Within Defined Limits Cardiac Within Defined Limits Respiratory Within defined limits Neurovascular Within Defined Limits Gastrointestinal Within Defined Limits Genitourinary Within Defined Limits Musculoskeletal Assessment Within Defined Limits except for: Musculoskeletal Assessment: General Mobility: Generalized weakness Integumentary Within Defined Limits Patient Lines/Drains/Airways Status Active LDAs Name Placement date Placement time Site Days Peripheral IV 02/26/23 18 gauge Right Forearm 02/26/23 -- -- 2 Peripheral IV 02/28/23 18 gauge;1 3/4 in length Left;Posterior Forearm 02/28/23 0410 -- less than 1 Wound Mouth removal of hardware surgical procedural wound Inner;Left surgical wound 11/23/19 1104 -- 1192 Incision: Jaw Left;other (see comments) 11/23/19 1100 -- 1192 Psychosocial Within Defined Limits * Interval Note Provider - Jesu Mackey MD - 02/28/2023 12:18 AM CDT Cross Cover Note Paged by lab re: positive blood culture. Bcx x1 from 02/27 AM with GPC in clusters and likely gram- fernando from anaerobic bottle. Lab currently pursuing identification of organisms. Patient remains afebrile, HDS, and on RA. Plan: -Continue ceftriaxone -Repeat blood cultures x2 in AM -Await ID of organisms Jesu Mackey MD, 02/28/2023 12:19 AM Addendum: Coag negative staph identified, unable to identify ?probable gram negative fernando. At this time, will opt to broaden antibiotics to ensure greater gram negative coverage while awaiting further identification, repeat cultures. Plan: -Start cefepime 2g q8h, stop ceftriaxone Jesu Mackey MD, 02/28/2023 2:51 AM * Nursing Focused Reassessment - Juanito Weir RN - 02/27/2023 10:50 PM CDT Focused Reassessment Shift Summary Patient alert and oriented. He denies pain. He called for sleeping medication which he received after MD ordered trazodone. He is independent in the room. He took medications and placed call light within his reach. Will continue to assist him as needed. Respiratory: Assessment Within Defined Limits except for: Cough: Present Frequency: Intermittent Type: Productive * Nursing Assessment - Pippa Hutchinson RN - 02/27/2023 2:55 PM CDT Nursing Assessment Head to Toe Head to Toe Assessment Shift Summary Shift Summary Pt admitted from ED at 1230. Pt is AO x4, danish speaking, does speak khmer. Pt denies pain upon arrival to unit. First dose of lovenox given. Pt calm and pleasant. Requested for food, sandwich andchips provided. Tolerating regular diet, no pork. Pt resting in bed at this time. Pt is able to make his needs known. Will continue with POC. Pippa Hutchinson RN, 02/27/2023 2:58 PM Neurologic/Cognitive Within Defined Limits HEENT Within Defined Limits Cardiac Within Defined Limits Respiratory Within defined limits Neurovascular Within Defined Limits Gastrointestinal Within Defined Limits Genitourinary Within Defined Limits Musculoskeletal Assessment Within Defined Limits except for: Musculoskeletal Assessment: General Mobility: Generalized weakness Integumentary Within Defined Limits Patient Lines/Drains/Airways Status Active LDAs Name Placement date Placement time Site Days Peripheral IV 02/26/23 18 gauge Right Forearm 02/26/23 -- -- 1 Wound Mouth removal of hardware surgical procedural wound Inner;Left surgical wound 11/23/19 1104 -- 1192 Incision: Jaw Left;other (see comments) 11/23/19 1100 -- 1192 Psychosocial Within Defined Limits * Interval Note Provider - Lainey Sanchez MD - 02/27/2023 11:44 AM CDT Handoff Communication Note for Hospital Admission Verbal handoff received from [facility]. Patient status: Inpatient Cardiac Monitoring: Not needed Brief summary of handoff from ED/Clinic Staff: A 37 year old Came yesterday with SOB , needed [address] with bilateral opacities Lt > Rt. Getting treatment for CAP with Ceftriaxone and azithromycin 90 % on room air , still needing 2 L of Please page the medicine Team via [employer] with clinical updates or status changes. Note is for documentation only and not for billing purposes. Lainey Sanchez MD, 02/27/2023 11:44 AM * Nursing Assessment - Amira Milner RN - 02/27/2023 6:39 AM CDT Nursing Assessment Head to Toe Head to Toe Assessment Shift Summary Shift Summary Pt alert and oriented, cooperative with cares. Denies fever, chills, cough, SOB, chest pain, or respiratory discomfort at this time. Respiratory even and unlabored. Pt independent with cares. Vital signs all WNL. BP 110/82 (Cuff Location: Right Arm) Pulse 78 Temp 36.7 ??C (98.1 ??F) (Axillary) Resp 16 SpO2 93% Neurologic/Cognitive Within Defined Limits HEENT Within Defined Limits Cardiac Within Defined Limits Respiratory Assessment Within Defined Limits except for: Respiratory Assessment: Respirations: Shortness of breath, reported Breath Sounds Normal: Yes Neurovascular Within Defined Limits Gastrointestinal Within Defined Limits Genitourinary Within Defined Limits Musculoskeletal Within Defined Limits Integumentary Within Defined Limits Patient Lines/Drains/Airways Status Active LDAs Name Placement date Placement time Site Days Peripheral IV 02/26/23 18 gauge Right Forearm 02/26/23 -- -- 1 Wound Mouth removal of hardware surgical procedural wound Inner;Left surgical wound 11/23/19 1104 -- 1191 Incision: Jaw Left;other (see comments) 11/23/19 1100 -- 1191 Psychosocial Within Defined Limits * ED Faculty Note - Manuel Granados MD - 02/26/2023 11:51 PM CDT Images from the original note were not included. ED Faculty Attestation and Note Dixie Smith : 1985 Sex: male Patient Arrival Date and Time: 02/26/2023 11:33 PM FACULTY ATTESTATION I personally saw the patient, performed critical or larios portions of the service, and discussed the care with the Advanced Practice Provider. MDM / ED Course Dixie Smith presented to the emergency department with SOB for several months. Per Fire, pt on 86% on room air, started on O2. Pt given 10 IM droperidol prehopsital due to agitation. The patient's cardiac ultrasound is without major findings. Chest x-rays with some concern for infections although medically. CT confirmed findings on the leftlungs that are concerning for infection. In the setting of significant hypoxia requiring oxygen andthe CT findings, the patient will be admitted for further care. Problems Addressed / DDx 1 acute or chronic illness or injury that poses a threat to life or bodilyfunction Data considered Tests Ordered, Additional history obtained from EMS, and Independent interpretationof studies Risk of patient management Diagnosis or treatment significantly limited by social determinants of health and Decision regarding hospitalization SDH including language barrier, transportation solutions manager required for care. IMPRESSION 1. Community acquired pneumonia of left lower lobe of lung Scribed for Manuel Granados MD by Anita Sharpe Scribe, 02/26/2023 11:52 PM IRoberta Anst B, MD have reviewed the initial documentation provided by the scribe and affirm thatit is an accurate restatement of my dictated record of services. Signed: Manuel Granados MD, 23:52 02/26/2023 documented in this encounter Plan of Treatment Upcoming Encounters Date Type Department Care Team Description 10/26/2023 10:40 AM CLEARING HAND Office Visit [facility] [address] [place] [address] Fina Shultz MD [address] [place], [place] [id number] Hospice Liaison, [facility] [place] Scheduled Discharge Disposition: Discharged to home or self care (routine discharge) 10/31/2023 12:00 PM CLEARING HAND Appointment [facility] [address] [facility] [address] [place], [place] [id number] 1, Eeg - Outpatient 2, [facility] [address] [place] [id number] Scheduled Discharge Disposition: Discharged to home or self care (routine discharge) Scheduled Referrals Name Type Priority Associated Diagnoses Orde r Schedule REFERRAL TO INTERNAL MEDICINE Referral Routine Community acquired pneumonia of left lower lobe of lung Ordered: 02/28/2023 documented as of this encounter Procedures Procedure Name Priority Date/Time Associated Diagnosis Comments PANEL HEPATIC FUNCTION Timed 02/28/2023 12:56 PM CDT PC CALCIFEDIOL Routine 02/28/2023 7:09 AM CDT PANEL BASIC METABOLIC (BMP) Routine 02/28/2023 7:09 AM CDT PC CULTURE,BACTERIAL,DEF INATIVE,AEROBIC;BLOOD Routine 02/28/2023 7:09 AM CDT PC CULTURE,BACTERIAL,DEF INATIVE,AEROBIC;BLOOD Routine 02/28/2023 7:09 AM CDT EKG ADULT (12-LEAD) Routine 02/27/2023 8 :43 PM CDT PC CULTURE,BACTERIAL,DEF INATIVE,AEROBIC;BLOOD STAT 02/27/2023 5:05 AM CDT COVID/FLU COMBO STAT 02/27/2023 3:[address] CHEST NO IV CONTRAST Routine 02/27/2023 3:15 AM CDT XR CHEST 1 VIEW AP OR PA* Routine 02/27/2023 1:19 AM CDT TC LAB BLOOD DRAW BY VENIPUNCTURE Routine 02/27/2023 12:05 AM CDT EXTRA TUBE - BLUE Routine 02/27/2023 12: 05 AM CDT EXTRA TUBE - SST Routine 02/27/2023 12:0 5 AM CDT PC HIV-1 AG W/HIV-1 & HIV-2 AB Routine 02/27/2023 12:05 AM CDT PC ELECTROLYTES PANEL STAT 02/27/2023 12:05 AM CDT PC LAB CBC W/DIFF & PLT STAT 02/27/2023 12:05 AM CDT PC LACTATE (LACTIC ACID) STAT 02/27/2023 12:05 AM CDT PC GASES,BLOOD,ANY COMB OF PH,PCD2,PO2,CO2,HCO2 STAT 02/27/2023 12:05 AM CDT ED US CARDIAC STAT 02/26/2023 11:58 PM CDT documented in this encounter Results * PANEL HEPATIC FUNCTION (02/28/2023 12:56 PM CDT) Total Protein 6.8 6.4 - 8.3 g/dL [facility] Albumin 3.8 3.8 - 5.1 g/dL [facility] Bili Total 0.7 0.1 - 1.2 mg/dL [facility] Bili Direct <0.2 <=0.3 mg/dL [facility] Alk Phos 102 40 - 129 IU/L [facility] ALT (SGPT) 16 <=41 IU/L [facility] AST(SGOT) 24 5 - 40 IU/L [facility] Blood 02/28/2023 12:5 6 PM CDT 02/28/2023 1:26 PM CDT Reinier Cooper MD LABORATORY Performing Organization Address [facility] Co de Phone Number [facility] [address] [address] * BLOOD AEROBIC/ANAEROBIC CULTURE (02/28/2023 7:09 AM CDT) Final Report No growth after 5 days. [facility] Blood (Peripheral) 02/28/2023 7:09 AM CDT 02/28/2023 8:52 AM CDT Kamryn Fernandez MD LAB MICROBIOLOGY Performing Organization Address [facility] Co de Phone Number [facility] [address] [address] * BLOOD AEROBIC/ANAEROBIC CULTURE (02/28/2023 7:09 AM CDT) Final Report No growth after 5 days. [facility] Blood (Peripheral) 02/28/2023 7:09 AM CDT 02/28/2023 8:52 AM CDT Kamryn Fernandez MD LAB MICROBIOLOGY Performing Organization Address [facility] Co de Phone Number [facility] [address] [address] * (ABNORMAL) VITAMIN D (25-OH) (02/28/2023 7:09 AM CDT) [facility] Vitamin D Total 25 Hydroxy 11(L) 21 - 70 ng/mL [facility] Comment: Result Interpretation: <=20 ng/mL ?? Vitamin D Deficient 21-29 ng/mL ??Vitamin D Insufficient Blood 02/28/2023 7:09 AM CDT 02/28/2023 8:32 AM CDT Kamryn Fernandez MD LABORATORY Performing Organization Address City/[facility]/ZIP Co de Phone Number [address] [address] * PANEL BASIC METABOLIC (BMP) (02/28/2023 7:09 AM CDT) [facility] CO2 23 22 - 30 mEq/L [facility] Glucose 98 70 - 100 mg/dL [facility] BUN 12 6 - 20 mg/dL [facility] Creatinine 0.72 0.70 - 1.25 mg/dL [facility] Calcium 9.3 8.6 - 10.0 mg/dL [facility] Sodium 139 135 - 148 mEq/L [facility] Potassium 3.7 3.5 - 5.3 mEq/L [facility] Chloride 106 92 - 108 mEq/L [facility] eGFR, High >120 >=60 ml/min/1.7 3m2 [facility] Comment:Calculated using CKD -EPI equation eGFR, Low 118 >=60 ml/min/1.7 3m2 [facility] Comment:Calculated using CKD -EPI equation AnGap 10 8 - 16 mEq/L [facility] Blood 02/28/2023 7:09 AM CDT 02/28/2023 8:32 AM CDT Kamryn Fernandez MD LABORATORY [facility] [address] [address] * EKG ADULT (12-LEAD) (02/27/2023 8:43 PM CDT) 02/27/2023 8:43 PM CDT Impressions [facility] EKG ORDERS - 02/27/2023 8:43 PM CDT SINUS RHYTHMNo Previous ECGs Available. MODERATE INTRAVENTRICULAR CONDUCTION DELAY ??[110+ ms QRS DURATION]No Previous ECGs Available. NONSPECIFIC T-WAVE ABNORMALITYNo Previous ECGs Available. BORDERLINE ECGNo Previous ECGs Available. Summary: No Previous ECGs Available.No Previous ECGs Available. P-R Interval 199 ms QRS Interval 117 ms QT Interval 343 ms QTC Interval 373 ms P [place] 62 QRS [place] 37 T Wave [place] 24 Narrative Procedure Note Armando Vu MD - 02/28/2023 IMPRESSION SINUS RHYTHMNo Previous ECGs Available. MODERATE INTRAVENTRICULAR CONDUCTION DELAY [110+ ms QRS DURATION]NoPrevious ECGs Available. NONSPECIFIC T-WAVE ABNORMALITYNo Previous ECGs Available. BORDERLINE ECGNo Previous ECGs Available. Summary: No Previous ECGs Available.No Previous ECGs Available. P-R Interval 199 ms QRS Interval 117 ms QT Interval 343 ms QTC Interval 373 ms P [place] 62 QRS [place] 37 T Wave [place] 24 Kamryn Fernandez MD EKG [facility] EKG ORDERS * (ABNORMAL) BLOOD AEROBIC/ANAEROBIC CULTURE (02/27/2023 5:05 AM CDT) Final Report Positive Blood Culture Corrected Report Results changed from probable gram negative bacilli to Bacillus species not anthracis. Result called to and read back by: Varghese Chan MD for Med [facility] [place] on 02/28/2023 11:50:19 by Louise Munoz MT Gram stain result called to and read back by: Jesu Mackey MD, in [facility] at ??02/28/2023 00:18:54 by Luz Villarreal MLS. Staphylococcus hominis isolated from anaerobic bottle only. Organism identified 02/28/2023 02:27:36 Methodology: Solid Phase Array Bacillus species not anthracis isolated from anaerobic bottle only. Organism not identifiable by solid phase array. 02/28/2023 02:28:04 Methodology: Solid Phase Array Result called to and read back by: Jesu Mackey MD, in [place] [address], at ??02/28/2023 02:28:31 by Luz Villarreal MLS. Organism identified 02/28/2023 11:44:11 (POS) [facility] Organism STAPHYLOCOCCUS HOMINIS(POS) [facility] Organism BACILLUS SPECIES NOT ANTHRACIS(POS) [facility] Blood (Peripheral) 02/27/2023 5:05 AM CDT 02/27/2023 5:38 AM CDT Narrative [facility] - 03/04/2023 7:28 AM CDT The Gram positive solid phase array tests for the following organisms and resistance markers: Staphylococcus species ? Staphylococcus aureus ? Staphylococcus epidermidis ? Staphylococcus lugdunensis ? mecA gene ? Streptococcus species ? Group A Streptococcus Group B Streptococcus Streptococcus pneumonia Streptococcus anginosus group Enterococcus faecalis Enterococcus faecium Tali gene vanB gene Listeria species ?? The Gram negative solid phase array tests for the following organisms and resistance markers: Escherichia coli ? Klebsiella pneumonia ? Klebsiella oxytoca ? Pseudomonas aeruginosa ? Acinetobacter species ? Citrobacter species ? Enterobacter species Proteus species CTX-M gene (ESBL) IMP genes (Carbapenemase) KPC genes (Carbapenemase) NDM gene (Carbapenemase) OXA genes (Carbapenemase) VIM genes (Carbapenemase) Jameson Larkin PA-C LAB MICROBIOLOGY Performing Organization Address 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 ??COVID and Influenza testing can be completed on the same swab Sending tests other than COVID-19 and Influenza requires additional swab(s) Is the patient a healthcare employee: No Is the patient a [facility] Employee: No Date of symptom onset: 02/27/23 If eligible is the patient interested in medication for treatment of COVID disease: No Jameson Larkin PA-C LABORATORY Performing Organization Address [facility] Co de Phone Number [facility] [address] [address] * CT CHEST NO IV CONTRAST (02/27/2023 3:15 AM CDT) Anatomical Region Laterality Modality Chest Computed Tomogra phy 02/27/2023 5:06 AM CDT Impressions 02/27/2023 6:40 AM CDT Impression: 1. Left greater than right lower lobe opacities with bronchial wall thickening and mucous plugging, suspicious for infection/atelectasis. 2. Trace left pleural effusion. I have personally reviewed the image(s) and initial interpretation, and I agree with the findings as documented by the resident/fellow. Reading Radiologist: Don Sherman Reading Resident: Liss Topete 02/27/2023 6:40 AM CDT COMPARISON: Chest CT 2013, chest x-ray 02/27/2023 INDICATION: Abnormal xray - lung opacity/opacities ??Further investigation of lung opacities ?? TECHNIQUE: Volumetric helical acquisition of CT images of the chest from the clavicles to the kidneys were acquired without IV contrast. DOSE: ?Total DLP = 266.1 mGy.cm. ?? Findings: Chest: Lungs: The central tracheobronchial tree is patent. Trace left pleural effusion. No pneumothorax. Stable 1.6 cm cyst in the posterior right lower lobe. Patchy ill-defined opacities in the left greater than right lower lobes. Additional areas of linear atelectasis in the lower lobes. Lower lobe predominant bronchial wall thickening and mucous plugging. Mediastinum: The visualized thyroid gland is unremarkable. The heart is not enlarged. No significant pericardial effusion. The ascending aorta and main pulmonary artery are normal in caliber. No mediastinal or axillary lymphadenopathy. Abdomen/Pelvis: ?? Visualized upper abdomen: ??1.0 cm left adrenal nodule with fat density, likely benign adrenal adenoma.. Bones and Soft Tissues: No acute or suspicious osseous abnormality. Minimal degenerative changes in the spine. Procedure Note Don Sherman MD - 02/27/2023 COMPARISON: Chest CT 2013, chest x-ray 02/27/2023 INDICATION: Abnormal xray - lung opacity/opacities Further investigationof lung opacities TECHNIQUE: Volumetric helical acquisition of CT images of the chest fromthe clavicles to the kidneys were acquired without IV contrast. DOSE: Total DLP = 266.1 mGy.cm. Findings: Chest: Lungs: The central tracheobronchial tree is patent. Trace left pleuraleffusion. No pneumothorax. Stable 1.6 cm cyst in the posterior right lowerlobe. Patchy ill- defined opacities in the left greater than right lowerlobes. Additional areas of linear atelectasis in the lower lobes. Lowerlobe predominant bronchial wall thickening and mucous plugging. Mediastinum: The visualized thyroid gland is unremarkable. The heart isnot enlarged. No significant pericardial effusion. The ascending aorta andmain pulmonary artery are normal in caliber. No mediastinal or axillarylymphadenopathy. Abdomen/Pelvis: Visualized upper abdomen: 1.0 cm left adrenal nodule with fat density,likely benign adrenal adenoma.. Bones and Soft Tissues: No acute or suspicious osseous abnormality. Minimal degenerative changesin the spine. IMPRESSION Impression: 1. Left greater than right lower lobe opacities with bronchial wallthickening and mucous plugging, suspicious for infection/atelectasis. 2. Trace left pleural effusion. I have personally reviewed the image(s) and initial interpretation, and Iagree with the findings as documented by the resident/fellow. Reading Radiologist: Don Sherman Resident: Liss Topete Jameson Larkin PA-C RAD CT BODY * XR CHEST 1 VIEW AP OR PA* (02/27/2023 1:19 AM CDT) Anatomical Region Laterality Modality Chest Computed Radiogr aphy 02/27/2023 2:02 AM CDT Impressions 02/27/2023 6:59 AM CDT Impression: 1. Mild bilateral interstitial opacities, likely pulmonary edema/atelectasis. Right basilar and retrocardiac opacities likely atelectasis versus consolidation. 2. Trace left pleural effusion. I have personally reviewed the image(s) and initial interpretation, and I agree with the findings as documented by the resident/fellow. Reading Radiologist: Don Sherman Reading Resident: Liss Topete Narrative 02/27/2023 6:59 AM CDT Indication: SOB ?? Comparison: Chest x-ray 2013 Findings: Supine AP radiograph of the chest. The trachea is midline. The cardiac silhouette is not enlarged. Trace left pleural effusion. No pneumothorax. Mild diffuse bilateral interstitial opacities. Right basilar and retrocardiac opacities likely represent atelectasis. The visualized upper abdomen is unremarkable. Procedure Note Don Sherman MD - 02/27/2023 Indication: SOB Comparison: Chest x-ray 2013 Findings: Supine AP radiograph of the chest. The trachea is midline. Thecardiac silhouette is not enlarged. Trace left pleural effusion. Nopneumothorax. Mild diffuse bilateral interstitial opacities. Right basilarand retrocardiac opacities likely represent atelectasis. The visualizedupper abdomen is unremarkable. IMPRESSION Impression: 1. Mild bilateral interstitial opacities, likely pulmonaryedema/atelectasis. Right basilar and retrocardiac opacities likelyatelectasis versus consolidation. 2. Trace left pleural effusion. I have personally reviewed the image(s) and initial interpretation, and Iagree with the findings as documented by the resident/fellow. Reading Radiologist: Don Sherman Reading Resident: Liss Topete Jameson Larkin PA-C RAD XRAY * HIV COMBO (02/27/2023 12:05 AM CDT) HIV Antigen-Antibody Nonreactive Nonreactive [facility] Comment:Performance characte ristics have not been established with this test on patients less than 2 years of age. Blood 02/27/2023 12:0 5 AM CDT 02/27/2023 12:06 PM CDT Manuel Granados MD LABORATORY Performing Organization Address [facility] de Phone Number [address] [address] * EXTRA TUBE - BLUE (02/27/2023 12:05 AM CDT) BLUE TUBE [facility] Comment:Blue top(Sodium citr ate) tubes are kept for 3 days from the collection date. Blood 02/27/2023 12:0 5 AM CDT 02/27/2023 12:16 AM CDT Manuel Granados MD LABORATORY Performing Organization Address [facility] de Phone Number [facility] [address] [address] * EXTRA TUBE - SST (02/27/2023 12:05 AM CDT) SST TUBE Stored [facility] Comment:SST tubes (Serum Sep arator) are stored in the lab for 3 days from the collection date. Blood 02/27/2023 12:0 5 AM CDT 02/27/2023 12:16 AM CDT Manuel Granados MD LABORATORY Performing Organization Address [facility]/State/ZIP Co de Phone Number [facility] [address] [address] * EXTRA TUBE - DARK GREEN (02/27/2023 12:05 AM CDT) DARK GREEN TUBE Stored [facility] Comment:Dark Green tubes (Li thium Heparin) are stored in the lab for 1 day from the collection date. Blood 02/27/2023 12:0 5 AM CDT 02/27/2023 12:16 AM CDT Manuel Granados MD LABORATORY Performing Organization Address [facility] Co de Phone Number [facility] [address] [address] * (ABNORMAL) BLOOD GASES (02/27/2023 12:05 AM CDT) PH Ivan 7.45(H) 7.32 - 7.42 [facility] PCO2 Ivan 29(L) 41 - 51 mmHG [facility] PO2 Ivan 84(H) 25 - 40 mmHG [facility] Bicarb Ivan 20(L) 24 - 28 mEq/L [facility] O2 Sat Ivan 96 % [facility] Base Exc Ivan -2.4 -10.0 - 2.0 mEq/L [facility] Blood Venous 02/27/2023 12:0 5 AM CDT 02/27/2023 12:17 AM CDT Manuel Granados MD LABORATORY Performing Organization Address City/[facility]/ZIP Co de Phone Number [facility] [address] [address] * (ABNORMAL) LACTATE (LACTIC ACID) (02/27/2023 12:05 AM CDT) Lactate 2.2(H) 0.7 - 2.1 mmol/L [facility] Blood 02/27/2023 12:0 5 AM CDT 02/27/2023 12:17 AM CDT Narrative [facility] - 02/27/2023 12:17 AM CDT Send specimen on ice! Manuel Granados MD LABORATORY Performing Organization Address [facility] Co de Phone Number [facility] [address] [address] * (ABNORMAL) ED CHEMISTRY LABS(NA,K,CL,CO2,GLU,CREAT,CA-IONIZED,ANION GAP) (02/27/2023 12:05 AM CDT) Sodium 143 135 - 148 mEq/L [facility] Chloride 114(H) 92 - 108 mEq/L [facility] AnGap 9 8 - 16 mEq/L [facility] Glucose 97 70 - 100 mg/dL [facility] ICA, Actual 3.77(L) 4.40 - 5.20 mg/dL [facility] ICA, pH Corrected 3.87(L) 4.40 - 5.20 mg/dL [facility] Creatinine 0.92 0.70 - 1.25 mg/dL [facility] BICARB 20(L) 22 - 26 mEq/L [facility] eGFR, High >120 >=60 ml/min/1.7 3m2 [facility] Comment:Calculated using CKD -EPI equation eGFR, Low 104 >=60 ml/min/1.7 3m2 [facility] Comment:Calculated using CKD -EPI equation Potassium 3.6 3.5 - 5.3 mEq/L [facility] Blood 02/27/2023 12:0 5 AM CDT 02/27/2023 12:16 AM CDT Manuel Granados MD LABORATORY Performing Organization Address [facility] Co de Phone Number [facility] [address] [address] * (ABNORMAL) CBC WITH PLTS/AUTO DIFF (02/27/2023 12:05 AM CDT) WBC 9.52 4.00 - 10.00 k/cmm [facility] RBC 4.24(L) 4.60 - 6.00 m/cmm [facility] Hgb 13.6 13.1 - 17.5 g/dL [facility] Hematocrit 40.7 40.0 - 51.0 % [facility] MCV 96.0 80.0 - 100.0 fL [facility] MCH 32.1(H) 25.0 - 32.0 pg [facility] MCHC 33.4 31.0 - 36.0 g/dL [facility] RDW 13.2 11.5 - 14.5 % [facility] Plt 211 150 - 400 k/cmm [facility] MPV 10.5 6.5 - 12.5 fL [facility] Automated Abs Neutrophil 6.80(H) 1.70 - 6.50 k/cmm [facility] Comment:Preliminary ANC, Fin al Result to Follow Abs Immature Granulocyte 0.03 0.00 - 0.09 k/cmm [facility] Comment:The Immature Granulo cyte Absolute count contains metamyelocytes and myelocytes. Abs Neutrophil 6.80(H) 1.70 - 6.50 k/cmm [facility] Abs Lymphocyte 2.12 0.80 - 4.00 k/cmm [facility] Abs Monocyte 0.43 0.20 - 1.00 k/cmm [facility] Abs Eosinophil 0.11 0.00 - 0.60 k/cmm [facility] Abs Basophil 0.03 0.00 - 0.20 k/cmm [facility] Blood 02/27/2023 12:0 5 AM CDT 02/27/2023 12:39 AM CDT Manuel Granados MD LABORATORY [facility] [address] [address] * ED US CARDIAC (02/26/2023 11:58 PM CDT) Anatomical Region Laterality Modality Ultrasound Narrative 02/27/2023 12:29 AM CDT ED Cardiac Ultrasound Body Areas Imaged: Heart, Chest Wall/Lungs and Inferior Vena Cava Indications:Shortness of Breath/Hypoxia Window: Subxiphoid, Parasternal [place], Parasternal [place], Apical 4-Chamber, IVC and Bilateral Lungs Findings: The left ventricular ejection fraction appears: Grossly preserved Normal estimated LVEF by E-Point septal separation (EPSS <7mm) No pericardial effusion identified. RV Dilation present/absent: No significant right ventricular dilation appreciated Lung sliding present bilaterally, No pleural effusion, A-line predominance The IVC diameter appears Mid-range with less than 50% variation with respiration Impression: The left ventricular ejection fraction appears: Grossly preserved No pericardial effusion identified. RV Dilation present/absent: No significant right ventricular dilation appreciated A-Line predominance consistent with normal lung aeration Findings suggest euvolemia Manuel Granados MD, 02/27/2023 12:28 AM Manuel Granados MD RAD ED ULT documented in this encounter Visit Diagnoses Diagnosis Community acquired pneumonia of left lower lobe of lung- Primary Community acquired pneumonia of left lower lobe of lung Alcohol use disorder, mild, abuse documented in this encounter Admitting Diagnoses Diagnosis Community acquired pneumonia of left lower lobe of lung documented in this encounter Administered Medications Inactive Administered Medications - up to 3 most recent administrations Medication Order MAR Action Action Date Dose Rate Site acetaminophen tablet 650 mg 650 mg, Oral, Q4H PRN, Starting on Mon02/27/23 at 1234, Until Mon02/28/23 at 1942, Temp > 38.6 C, Mild Pain (Use First) Given 02/28/2023 4:17 AM CDT 650 mg azithromycin (ZITHROMAX) 500 mg in NaCl 0.9% 250 mL IVPB 500 mg, Indication (Select One): Infection - Confirmed, SITE (Select all that apply): Lower Respiratory, Cultures Ordered? Yes, Intravenous, ONE TIME, 1 dose, On Mon02/27/23 at 0435 New Bag 02/27/2023 7:01 AM CDT 500 mg 250 mL/hr azithromycin (ZITHROMAX) tablet 500 mg 500 mg, Indication (Select One): Infection - Confirmed, SITE (Select all that apply): Lower Respiratory, Cultures Ordered? Yes, Oral, DAILY, 2 doses, First dose on Mon02/28/23 at 0800, Last dose on Mon03/01/23 at 0800 Given 02/28/2023 8:35 AM CDT 500 mg calcium (OS-RENATA) tablet - elemental 500 mg 500 mg, Oral, BID, First dose on Mon02/27/23 at 2000, Until Discontinued Given 02/28/2023 8:35 AM CDT 500 mg Given 02/27/2023 9:11 PM CDT 500 mg cefEPIME (MAXIPIME) 2,000 mg in NaCl 0.9% IVPB 2,000 mg (2 g), Indication (Select One): Infection - Suspected, SITE (Select all that apply): Bloodstream, Cultures Ordered? Yes, Intravenous, Q 8H, First dose on Mon02/28/23 at 0250, Until Discontinued New Bag 02/28/2023 4:13 AM CDT 2,000 mg 200 mL/hr cefTRIAXone (ROCEPHIN) 2 g in NaCl 0.9% 100 mL IVPB 2 g, Indication (Select One): Infection - Confirmed, SITE (Select all that apply): Lower Respiratory, Cultures Ordered? Yes, Intravenous, ONE TIME, 1 dose, On Mon02/27/23 at 0435 New Bag 02/27/2023 5:02 AM CDT 2 g 200 mL/hr cefTRIAXone (ROCEPHIN) 2 g in NaCl 0.9% 100 mL IVPB 2 g, Indication (Select One): Infection - Confirmed, SITE (Select all that apply): Bloodstream, Lower Respiratory, Cultures Ordered? Yes, Intravenous, Q24H, First dose on Mon02/28/23 at 1100, Until Discontinued New Bag 02/28/2023 11:25 AM CDT 2 g 200 mL/hr DC MED REC REVIEW BY PHARMACY Discharge Date: 02/28/2023, Discharge Location: Home, Anticipated Discharge Time: 10 am - 2 pm, Discharge Medication Orders: DC Med Orders Final, Does not apply, PROTOCOL, Starting on Mon02/28/23 at 1237, Until Mon02/28/23 at 1942 enoxaparin (LOVENOX) 40 mg/0.4 mL injection 40 mg 40 mg, Subcutaneous, DAILY, First dose on Mon02/27/23 at 1315, Until Discontinued Given 02/28/2023 8:35 AM CDT 40 mg Abdominal Tissue Given 02/27/2023 1:42 PM CDT 40 mg Ab dominal Tissue ERGOcalciferol (VITAMIN D) capsule 50,000 UNITS 50,000 UNITS, Oral, Q WEEKLY, First dose on Mon02/28/23 at 0930, Until Discontinued Given 02/28/2023 4:45 PM CDT 50,000 UNITS naltrexone (REVIA) tablet 50 mg 50 mg, Oral, DAILY, First dose on Mon02/28/23 at 1230, Until Discontinued nicotine polacrilex (COMMIT) lozenge 2 mg 2 mg, Oral, Q1H PRN, Starting on Mon02/28/23 at 1153, Until Mon02/28/23 at 1942, Nicotine Craving (Use Second) sodium chloride 0.9% bolus 1,000 mL 1,000 mL, Intravenous, Administer over 30 Minutes, IV BOLUS, 1 dose, On Mon02/27/23 at 0025 New Bag 02/27/2023 12:23 AM CDT 1,000 mL 2000 mL/hr traZODone (DESYREL) tablet 50 mg 50 mg, Oral, ONE TIME, 1 dose, On Mon02/27/23 at 2120 Given 02/27/2023 10:26 PM CDT 50 mg documented in this encounter Active and Recently Administered Medications Times are shown in CDT. Scheduled Medication Order 02/26/2023 02/27/2023 02/28/2023 azithromycin (ZITHROMAX) 500 mg in NaCl 0.9% 250 mL IVPB (COMPLETED) 500 mg, Indication (Select One): Infection - Confirmed, SITE (Select all that apply): Lower Respiratory, Cultures Ordered? Yes, Intravenous, ONE TIME, 1 dose, On Mon02/27/23 at 0435 0701 (New Bag - Provider: Amira Milner RN)0801 (Infusion completed - Provider: Carol Bee RN) azithromycin (ZITHROMAX) tablet 500 mg 500 mg, Indication (Select One): Infection - Confirmed, SITE (Select all that apply): Lower Respiratory, Cultures Ordered? Yes, Oral, DAILY, 2 doses, First dose on Mon02/28/23 at 0800, Last dose on Mon03/01/23 at 0800 0835 (Given - Provid er: Mary Jean RN) calcium (OS-RENATA) tablet - elemental 500 mg 500 mg, Oral, BID, First dose on Mon02/27/23 at 2000, Until Discontinued 2110 (Given - Provider: Juanito Weir RN) 0835 (Given - Provider: Mary Jean RN) cefEPIME (MAXIPIME) 2,000 mg in NaCl 0.9% IVPB (CANCELED) 2,000 mg (2 g), Indication (Select One): Infection - Suspected, SITE (Select all that apply): Bloodstream, Cultures Ordered? Yes, Intravenous, Q 8H, First dose on Mon02/28/23 at 0250, Until Discontinued 0413 (New Bag - Provider: Mary Jean RN)0445 (Infusion completed - Provider: Mary Jean RN) cefTRIAXone (ROCEPHIN) 2 g in NaCl 0.9% 100 mL IVPB (COMPLETED) 2 g, Indication (Select One): Infection - Confirmed, SITE (Select all that apply): Lower Respiratory, Cultures Ordered? Yes, Intravenous, ONE TIME, 1 dose, On Mon02/27/23 at 0435 0502 (New Bag - Provider: Lu Hawkins RN)0523 (Infusion completed - Provider: Amira Milner RN) cefTRIAXone (ROCEPHIN) 2 g in NaCl 0.9% 100 mL IVPB 2 g, Indication (Select One): Infection - Confirmed, SITE (Select all that apply): Bloodstream, Lower Respiratory, Cultures Ordered? Yes, Intravenous, Q24H, First dose on Mon02/28/23 at 1100, Until Discontinued 1125 (New Bag - Provider: Mary Jean RN)1155 (Infusion completed - Provider: Mary Jean RN) DC MED REC REVIEW BY PHARMACY(Linked Group 1) Discharge Date: 02/28/2023, Discharge Location: Home, Anticipated Discharge Time: 10 am - 2 pm, Discharge Medication Orders: DC Med Orders Final, Does not apply, PROTOCOL, Starting on Mon02/28/23 at 1237, Until Mon02/28/23 at 1942 enoxaparin (LOVENOX) 40 mg/0.4 mL injection 40 mg 40 mg, Subcutaneous, DAILY, First dose on Mon02/27/23 at 1315, Until Discontinued 1342 (Given - Provider: Pippa Hutchinson RN) 0835 (Given - Provider: Mary Jean RN) ERGOcalciferol (VITAMIN D) capsule 50,000 UNITS 50,000 UNITS, Oral, Q WEEKLY, First dose on Mon02/28/23 at 0930, Until Discontinued 1645 (Given - Provid er: Anival See RN) naltrexone (REVIA) tablet 50 mg 50 mg, Oral, DAILY, First dose on Mon02/28/23 at 1230, Until Discontinued 1650 (Not Given (rem oves Due time) - Provider: Anival See RN - Reason: Patient refused - Comment: Pt refused to eat naltrexone during discharge, pt stated he will take it later as he don;t want to throw up on the way out. Pt agreed to take the meds outpt.) sodium chloride 0.9% bolus 1,000 mL (COMPLETED) 1,000 mL, Intravenous, Administer over 30 Minutes, IV BOLUS, 1 dose, On Mon02/27/23 at 0025 0023 (New Bag - Provider: Lu Hawkins, TIFFANY)0147 (Infusion completed - Provider: Lu Hawkins RN) traZODone (DESYREL) tablet 50 mg (COMPLETED) 50 mg, Oral, ONE TIME, 1 dose, On Mon02/27/23 at 2120 2226 (Given - Provider: Juanito Weir RN) PRN Medication Order 02/26/2023 02/27/2023 02/28/2023 acetaminophen tablet 650 mg 650 mg, Oral, Q4H PRN, Starting on Mon02/27/23 at 1234, Until Mon02/28/23 at 1942, Temp > 38.6 C, Mild Pain (Use First) 0417 (Given - Provid er: Mary Jean RN) nicotine polacrilex (COMMIT) lozenge 2 mg 2 mg, Oral, Q1H PRN, Starting on Mon02/28/23 at 1153, Until Mon02/28/23 at 1942, Nicotine Craving (Use Second) sennosides (SENOKOT) tablet 8.6 mg 8.6 mg, Oral, BID PRN, Starting on Mon02/27/23 at 1234, Until Mon02/28/23 at 1942, Constipation (Use First) Linked Groups Order Group 1: DC MED REC REVIEW BY PHARMACYJump to med Discharge Date: 02/28/2023
Discharge Location: Home
Anticipated Discharge Time: 10 am - 2 pm
Discharge Medication Orders: DC Med Orders Final
Does not apply, PROTOCOL, Starting on Mon02/28/23 at 1237, Until Mon02/28/23 at 1942 And Discharge Med Rec Final Review by Pharmacy (COMPLETED) Routine, Order to be placed by provider after medications have been entered for discharge and are ready for review by Pharmacist. This order can be placed multiple times if changes or additions have been made to medications for discharge. Choose the Preliminary DC Med Rec review when placing orders prior to the day of discharge. Choose Final DC Med Rec when all medication changes have been entered. If DC Med Rec needed now, please page the Pharmacist covering the patient to inform them.
Discharge Date: 02/28/2023
Discharge Location: Home
Anticipated Discharge Time: 10 am - 2 pm documented in this encounter Additional Health Concerns Infection Onset Date Last Indicated Resolved Time SARS-CoV-2 Rule-Out 02/27/2023 02/27/2023 02/28/20 4:28 AM CDT documented as of this encounter Care Teams Township Supervisor Relationship Specialty Start Date End Date Pcp, [place] [address] PCP - General 08/31/14 Jose Armando Morales MDIV [address] [place] [address] Superintendent Maintenance Airports 02/28/23 10/03/23 documented as of this encounter
--- OUTSIDE RECORDS SUMMARY | 2023-10-19 17:30 | XMS_ITS | Encounter Summary ---
Author Name Unknown Organization [facility] Address [address] [place] [address] Phone Care Team Providers Care Drainage Inspector Name Role Phone Pcp, No Primary Care Provider Unavailabl e Jose Armando Morales MDIV Unavailable Unavail able Reason for Visit * Reason Comments Altered Mental Status Encounter Details Date Type Department Care Team Description 03/22/2023 2:50 AM CDT - 03/22/2023 9:08 AM CDT Emergency [facility] Emergency Department [address] [place], [place] [address] Compa Mayer MD [address] [place], [place] [address] Nolberto Solorio MD [address] [facility] [address] [place] [address] Alcoholic intoxication without complication () Discharge Disposition: Discharged to home [...] suspected to have Coronavirus/COVID-19? No / Unsure 03/22/2023 2:58 AM CDT documented as of this encounter Last Filed Vital Signs Vital Sign Reading Time Taken Comments Blood Pressure 117/68 03/22/2023 7:54 AM CDT Pulse 80 03/22/2023 7:54 AM CDT Temperature 37 ??C (98.6 ??F) 03/22/2023 2:59 AM CDT Respiratory Rate 16 03/22/2023 7:54 AM CDT Oxygen Saturation 99% 03/22/2023 7:54 AM CDT Inhaled Oxygen Concentration - - Weight - - Height - - Body Mass Index - - documented in this encounter Discharge Instructions * Discharge Instructions* Magdaleno Morillo MD - 03/22/2023 8:34 AM CDT Please use the below resources and your primary care physician to safely cease alcohol and/or substance use. Return to the ED if you are having any urgent or life-threatening concerns. DISCHARGE RESOURCES: -[facility] [phone] -[facility] [phone] -SMART Recovery - self management for addiction recovery: www.smartrecovery.org -Pathways ~ A Health Crisis Resource & Support Center: 369.528.3996. -Substance Abuse and Mental Health Services (www.samhsa.gov) -Harm Reduction Coalition (www. Harmreduction.org) -Poison control [phone] Sober Support Group Information: AA/NA & Sponsor/Support -Alcoholics Anonymous (www.alcoholics-anonymous.org): for local information 24 hours/day -AA Intergroup service office in [place] (http://www.aastpaul.org/) [phone] -AA Intergroup service office in [facility]: [phone]. (http://www.a[place].org/) -Narcotics Anonymous (www.nam[place].org) -Sober Fun Activities: www.soberThe smART Peace Prizeactivities.TribeHired.bubl/[facility]//[facility] Recovery Connection (MRC) [facility] connects people seeking recovery to resources that help foster and sustain long-term recovery. Whether you are seeking resources for treatment, transportation, housing, job training, education, health care or other pathways to recovery, [facility] is a great place to start. . www.[facility] hospitals for childrenElectric Imp.[employer] & Events (Great listing of all types of recovery and non-recovery related resources) documented in this encounter Medications at Time of Discharge Medication Sig Dispensed Refills Start Date End Date azithromycin (ZITHROMAX) 250 mg oral TABSIndications:Commu nity [...] as of this encounter ED Notes * Alejandrina Childress RN - 03/22/2023 8:43 AM CDT Pt prepared for discharge. Ambulatory without assistance with steady gait. All belongings returned to pt upon discharge; pt dressed weather appropriate. Able to tolerate PO fluids. Pt accepted d/c instructions and teaching. * Magdaleno Morillo MD - 03/22/2023 7:07 AM CDT EMERGENCY DEPARTMENT PHYSICIAN NOTE TEAM CENTER D - TRANSFER OF CARE Name: Dixie mSith :1985 Sex: male Sign out received from: Beto BETTS Please see original provider note for further details. CHIEF COMPLAINT Chief Complaint Patient presents with Altered Mental Status PREVIOUS ED COURSE There is a history of ethanol use as a suspicious etiology for AMS. - Called EMS himself, was feeling paranoid Breathalyzer: Initial Breathalyzer Breathalyzer: 0.256 Effort: Good effort WORKUP PENDING - Continue to await clinical sobriety - Feeling good, no complaints, no paranoia currently, wishing to d/c CONTINUED ED COURSE CLINICAL IMPRESSION 1. Alcoholic intoxication without complication () DISPOSITION - Following a period of observation, patient's mental status cleared as expected. Ambulating well, tolerating PO, and appears clinically sober at this time. Will be discharged. Recommended abstinencefrom drugs and alcohol. Return precautions discussed. - Medications sent to pharmacy: none - Follow up with Acute Care Clinic, ED as needed Magdaleno Morillo MD, 03/22/2023 7:07 AM Emergency Medicine PGY-1 Pager via [employer] [phone] * Darin Pérez MD - 03/22/2023 3:47 AM CDT Images from the original note were not included. ED Provider Note Dixie Smith : 1985 Sex: male Patient Arrival Date and Time: 03/22/2023 2:50 AM HPI Dixie Smith presented to the emergency department with alcohol intoxication. Pt called 911 w/concerns about being kidnapped and harvesting his organs. Admits to drinking beers throughout the day. MDM / ED Course VSS, patient examined and has scabs on elbows without infection. No other injuries noted. Will waitfor patient to sober, will need further evaluation if does not sober in appropriate amount of time. Breathalyzer 0.256 Problems Addressed / DDx Data considered Additional tests considered but not ordered Risk of patient management Low risk IMPRESSION 1. Alcoholic intoxication without complication () Darin Pérez MD, 03/22/2023 3:50 AM * Sari Maens RN - 03/22/2023 2:51 AM CDT Pt [facility] from [facility] in [place]. Pt called 911 for concerns of being kidnapped and kidnappers harvested his organs. Admits to few beers today and denies any other drug use. documented in this encounter Miscellaneous Notes * ED Faculty Note - Compa Mayer MD - 03/22/2023 4:26 AM CDT Admission Diagnosis: 1) Altered mental status 2) Intoxication likely secondary to ethyl alcohol poisoning Hospital Course: Dixie Smith is a 37 y.o. patient who presented to the emergency department with altered mental status. Pt called 911 with concern for being kidnapped and having his organs harvested. Admits to drinking beers throughout the day. Intoxication was suspected, and a breathalyzer for Ethyl alcohol was obtained. A legal hold was placed on the patient due to their inability to carefor self which represented a danger to self in addition to their chemical dependency status that isin question due to intoxication. There is a plan to possibly administer chemical restraints and utilize physical restraints should the patients behavior represent uncontrolled agitation or a safety risk for self or caregivers. We will rule out other significant differential diagnoses that could be contributing to their condition such as intracranial trauma, undetected infection, or toxic/metabolic abnormality. ROS: A 10 point ROS was conducted. Pertinent positives and negatives are noted in the History. Areas not noted in the History were negative. Physical Examination: Vitals: BP (!) 91/59 (Cuff Location: Left Arm, Patient Position: Lying Down) Pulse 86 Temp 37 ??C (98.6 ??F) (Oral) Resp 14 SpO2 96% GENERAL: Altered, NAD, non-toxic appearing. Slurred speech. HEENT: Normocephalic, atraumatic. PERRLA, EOMI. MMM with no oropharyngeal lesions or tonsillar exudates. NECK: Supple. No adenopathy. No JVD. CARDIOVASCULAR: RRR. No murmurs, rubs or gallops. Peripheral pulses intact and symmetric. CHEST: symmetric chest wall expansion. CTAB. No wheezes, no rales. ABDOMEN: Soft. Non-distended. Non-tender. No rebound or guarding. No organomegaly. BACK: No CVA tenderness. MUSCULOSKELATAL: Extremities without deformities, edema. NEUROLOGIC: Altered, moving all extremities equally, symmetric facies. SKIN: warm and well perfused. MDM/ ED Course: Chronic illness with severe exacerbation, progression, or side effect of treatment; AMS, substance intoxication External Notes Reviewed; Unique tests ordered; Tests considered but not ordered; Unique test results reviewed; and Independent interpretation of test(s); High: Decision regarding hospitalization, High: risk of complication from severe intoxication requiring close observation, High: Social determinants of health: substance abuse 03/22/2023 2:50 AM Dixie Smith is a 37 y.o. male who presented to the ED with Altered Mental Status FACULTY ATTESTATION I Compa Mayer MD, performed a history and physical examination of the patient and discussed management with the resident. I reviewed the resident's note and agree with the documented findings andplan of care as documented in the resident's note. CRITICAL CARE No RN and ANCILLARY NOTES I have reviewed nursing and ancillary notes, and agree with protocol as initiated PROCEDURES Not applicable This patient presented with an altered mental state that is suspicious for an etiology of an intoxicating substance. Their level of mentation is such that abuse of this substance is suspected. Given their level of alteration and the circumstances in which they presented, it is likely that they utilize intoxicating substances on a regular basis or that they have relapsed into utilizing them after a period of attempted sobriety. I am highly concerned that they have a problem with chemical dependency given these circumstances and that they now cannot make safe decisions for themselves. Currently, this endangers their well-being and safety and I am placing a Health Officer custody hold upon them at this time. Scribed for Compa Mayer MD by Liliana Omalley Scribe, 03/22/2023 4:26 AM ICompa MD have reviewed the initial documentation provided by the scribe and affirm that it is an accurate restatement of my dictated record of services. Signed: Compa Mayer MD, 04:26003/22/2023 documented in this encounter Plan of Treatment Upcoming Encounters Date Type Department Care Team Description 10/26/2023 10:40 AM PROFESSOR OF EARLY CHILDHOOD EDUCATION Office Visit [facility] [address] [place] [address] Fina Shultz MD [address] [place], [place] [id number] Marine Reporter, [facility] Gambian Scheduled Discharge Disposition: Discharged to home or self care (routine discharge) 10/31/2023 12:00 PM PROFESSOR OF EARLY CHILDHOOD EDUCATION Appointment [facility] EEG [address] [place], [place] [id number] 1, Eeg - Outpatient 2, [facility] [address] [place] [address] Scheduled Discharge Disposition: Discharged to home or self care (routine discharge) documented as of this encounter Visit Diagnoses Diagnosis Alcoholic intoxication without complication ()- Primary Altered mental status, unspecified altered mental status type documented in this encounter Care Teams Drainage Inspector Relationship Specialty Start Date End Date [facility]cp, No [facility] [place] [address] PCP - General 08/31/14 Jose Armando Morales MDIV [address] [place] [address] Claim Administrator 02/28/23 10/03/23 documented as of this encounter
--- OUTSIDE RECORDS SUMMARY | 2023-10-19 17:30 | XMS_ITS | Encounter Summary ---
Author Name Unknown Organization [facility] Address [address] [facility] [place] [address] Phone Care Team Providers Care Merchandise Examiner Name Role Phone Pcp, No Primary Care Provider Unavailabl e Encounter Details Date Type Department Care Team Description 02/27/2023 Travel Social History Tobacco Use Types Packs/Day [...] Department Care Team Description 10/26/2023 10:40 AM SHIP'S ENGINEER Office Visit [facility] [address] [place] [address] Fina Shultz MD [address] [place], [place] [id number] Boiler Erector, [facility] Swiss Scheduled Discharge Disposition: Discharged to home or self care (routine discharge) 10/31/2023 12:00 PM SHIP'S ENGINEER Appointment [facility] EEG [address] [facility] [address] [place], [place] [id number] 1, Eeg - Outpatient 2, Isd-Swiss [address] [place] [address] Scheduled Discharge Disposition: Discharged to home or self care (routine discharge) documented as of this encounter Visit Diagnoses Not on filedocumented in this encounter Additional Health Concerns Infection Onset Date Last Indicated Resolved Time SARS-CoV-2 Rule-Out 02/27/2023 02/27/2023 02/28/20 4:28 AM CDT documented as of this encounter Care Teams Merchandise Examiner Relationship Specialty Start Date End Date Pcp, [place] [address] PCP - General 08/31/14 documented as of this encounter
--- OUTSIDE RECORDS SUMMARY | 2023-10-19 17:30 | XMS_ITS | Encounter Summary ---
Author Name Unknown Organization [facility] Address [address] [place] [address] Phone Care Team Providers Care Systems Consultant Name Role Phone Pcp, No Primary Care Provider Unavailabl e Jose Armando Morales I MDIV Unavailable Unavail able Reason for Visit * Reason Onset Date Comments Appointment 08/29/2023 Encounter Details Date Type Department Care Team Description 08/29/2023 Telephone [facility] [address] [address] [address] [place] [address] Appointment Social History Tobacco Use Types Packs/Day Years [...] suspected to have Coronavirus/COVID-19? No / Unsure 08/22/2023 7:11 PM POLYMER MATERIALS CONSULTANT documented as of this encounter Miscellaneous Notes * Telephone Encounter - Merlyn Fernandez - 08/29/2023 9:40 AM CST Placed a call to patient to Offer overbook appointment with Dr. Pierce on Thursday 08/30 at 9:00 AM for ED follow up facial fractures. Per parts interpreter phone numbers listed in patient's chart are invalid- mailed unable to reach letter. MER MATERIALS CONSULTANT documented in this encounter Plan of Treatment Upcoming Encounters Date Type Department Care Team Description 10/26/2023 10:40 AM POLYMER MATERIALS CONSULTANT Office Visit [facility] [address] [place] [address] Fina Shultz MD [address] [place], [place] [id number] Beef Grinder, [facility] Brazilian Scheduled Discharge Disposition: Discharged to home or self care (routine discharge) 10/31/2023 12:00 PM POLYMER MATERIALS CONSULTANT Appointment [facility] [address] [facility] [address] [place] [address] 1, Eeg - Outpatient 2, Isd-Brazilian [address] [place] [address] Scheduled Discharge Disposition: Discharged to home or self care (routine discharge) documented as of this encounter Visit Diagnoses Not on filedocumented in this encounter Care Teams Systems Consultant Relationship Specialty Start Date End Date Pcp, No [facility] [place] [address] PCP - General 08/31/14 Jose Armando Morales MDIV [address] [place] [address] Advance Seal Delivery System Maintainer 02/28/23 10/03/23 documented as of this encounter
--- OUTSIDE RECORDS SUMMARY | 2023-10-19 17:30 | XMS_ITS | Encounter Summary ---
Author Name Unknown Organization [facility] Address [address] [place] [address] Phone Care Team Providers Care Press Offbearer Name Role Phone Pcp, No Primary Care Provider Unavailabl e Jose Armando Morales MDIV Unavailable Unavail able Encounter Details Date Type Department Care Team Description 03/22/2023 Travel Social History Tobacco Use Types Packs/Day [...] Department Care Team Description 10/26/2023 10:40 AM LICENSED PHARMACIST Office Visit [facility] [address] [place] [address] Fina Shultz MD [address] [place], [place] [phone] Distillery Worker General, [facility] Grenadian Scheduled Discharge Disposition: Discharged to home or self care (routine discharge) 10/31/2023 12:00 PM LICENSED PHARMACIST Appointment [facility] [address] [facility] [address] [place], [place] [phone], Eeg - Outpatient 2, Isd-Grenadian [address] [place] [address] Scheduled Discharge Disposition: Discharged to home or self care (routine discharge) documented as of this encounter Visit Diagnoses Not on filedocumented in this encounter Care Teams Press Offbearer Relationship Specialty Start Date End Date Pcp, [place] [address] PCP - General 08/31/14 Jose Armando Morales MDIV [address] [place] [address] Federal Appellate Law Clerk 02/28/23 10/03/23 documented as of this encounter
--- OUTSIDE RECORDS SUMMARY | 2023-10-19 17:30 | XMS_ITS | Encounter Summary ---
Author Name Unknown Organization [facility] [place] Address [address] [facility] [place] [address] Phone Care Team Providers Care Production Crew Supervisor Name Role Phone Pcp, No Primary Care Provider Unavailabl e Jose Armando Morales MDIV Unavailable Unavail able Encounter Details Date Type Department Care Team Description 08/22/2023 Travel Social History Tobacco Use Types Packs/Day [...] Coronavirus/COVID-19? No / Unsure 08/22/2023 7:11 PM FABRICATION AND ASSEMBLY SUPERVISOR documented as of this encounter Plan of Treatment Upcoming Encounters Date Type Department Care Team Description 10/26/2023 10:40 AM FABRICATION AND ASSEMBLY SUPERVISOR Office Visit [facility] [address] [place] [address] Fina Shultz MD [address] [place], [place] [phone] At Risk Specialist, [facility] Faroese Scheduled Discharge Disposition: Discharged to home or self care (routine discharge) 10/31/2023 12:00 PM FABRICATION AND ASSEMBLY SUPERVISOR Appointment [facility] [place] [facility] [address] [facility] [address] [place], [place] [phone] 1, Eeg - Outpatient 2, Isd-Faroese [address] [place] [address] Scheduled Discharge Disposition: Discharged to home or self care (routine discharge) documented as of this encounter Visit Diagnoses Not on filedocumented in this encounter Care Teams Production Crew Supervisor Relationship Specialty Start Date End Date Pcp, No [place] [place] [address] PCP - General 08/31/14 Jose Armando Morales MDIV [address] [place] [address] Senior Production Supervisor 02/28/23 10/03/23 documented as of this encounter
--- OUTSIDE RECORDS SUMMARY | 2023-10-19 17:30 | XMS_ITS | Encounter Summary ---
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 abnormal extraaxial fluid collection. The ventricles donot appear enlarged out of proportion to the cerebral sulci. Cerebral andcerebellar volume loss. Focus of cortical encephalomalacia in the lateralcortex of the anterior right temporal lobe as well as in the anterior poleof the right temporal lobe. This is likely sequela of prior trauma.Additional focus of cortical encephalomalacia in the inferolateral rightfrontal cortex posterior to the right orbit. The bony calvarium and the bones of the skull base appear normal. Reviewof visualized dentition does not reveal significant periapical dentaldisease. Mucosal thickening involving the maxillary sinuses. Small mucousretention cyst in the sphenoid sinuses. Mucosal thickening in the frontalsinuses.. Depressed and comminuted fracture of the left zygomatic archwith no significant associated soft tissue hematoma. Age-indeterminatefracture deformity of the right zygomatic arch. Age- indeterminate leftnasal bone fracture. Periapical dental disease in the maxilla. IMPRESSION Impression: No acute intracranial bleed. Sequela of prior intracranial and facialtrauma.. Reading Radiologist: Brigitte Smith Rosaura Solis MD RAD CT NEURO documented in this encounter Visit Diagnoses Diagnosis Transient alteration of awareness- Primary Altered mental status, unspecified altered mental status type Closed fracture of facial bone, unspecified facial bone, initial encounter () documented in this encounter Care Teams Furniture Associate Relationship Specialty Start Date End Date Pcp, [place] [address] PCP - General 08/31/14 Jose Armando Morales [facility] [id number] [place] [address] 02/28/23 10/03/23 documented as of this encounter
== END 2023-10-06 13:51 | disposition home or self-care (01) ==
LOC: AMB 10-19 17:26
PROVIDERS: Visit Provider Family Medicine
DX: F10.129 Alcohol abuse with intoxication, unspecified (principal)
CPT/HCPCS: A0425; A0429

== ENCOUNTER 2023-10-06 14:14 | Emergency (ER) | payer OTHER, SELFPAY ==
[2023-10-06] VITALS (9 sets, daily range): BP systolic 103; BP diastolic 73; PULSE 85–105; RESP 18; TEMP 36.3; O2SAT 76–100; BMI 25.1
--- NOTE | 2023-10-06 14:26 | ED.GENADULT ---
HPI - General Adult General Chief complaint: Alcohol/Intoxication Stated complaint: ETOH Time Seen by Provider: 10/06/23 14:25 History of Present Illness HPI narrative: patient is wet and intoxicated attempting to get into apartment in [place] which was not patient's apartment. Arrived slurred speech, off balance, and belligerent. attempting to get out of the bed multiple times, calling names to female staff like elin. Unsure what is spilled on clothes as are wet. EMS thinking vodka spilled all over. BS?unable to get. 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 When EMS moved to ED cot hit head don window frame. 37-year-old man presenting to the emergency department via EMS apparently intoxicated and on a police hold. Police found Mr. Smith in a puddle of some liquid and unable to stand and barely arousable. He was in the wrong building but trying to get into though ?right number? apartment. By the time he arrives in the emergency department he is more alert yelling at staff repeatedly ?bitch?. He denies any pain. There is no suspicion of injury other than the fact that he was on the ground. Blew a ?weak 34? by EMS. Apparently there is no one that can come and get him at this time regardless. Related Data Home Medications Medication Instructions Recorded Confirmed No Known Home Medications 09/10/23 10/06/23 Allergies Allergy/AdvReac Type Severity Reaction Status Date / Time No Known Drug Allergies Allergy Verified 10/06/23 14:33 Review of Systems Status of ROS: Reports: 6 or more systems reviewed and unremarkable except as noted in History and below [facility] Medical History No significant past medical history Surgical History No significant past surgical history Social History Smoking Status: Current every day smoker Second hand tobacco smoke exposure: Yes How often do you have a drink containing alcohol: monthly or less AUDIT-C Alcohol total score: 1 Non-prescribed substance use: denies use Exam Narrative: Exam Narrative: Is intermittently weepy. Yelling ?bitch?. Does cooperate with the exam. Head is atraumatic. External ear canals free fluid. Cranial nerves 2-12 to be intact. Pupils are equal in 3 mm. Appropriately reactive. He is moving all extremities without difficulty/with good strength. Generally appears weaker and intoxicated. Disheveled Dentition in disrepair. Heart in elevated rate and regular rhythm. Lungs appear to be clear. Abdomen is soft and nontender. Const: Vital Signs, click to edit/add: Vital Signs - 24 hr 10/06/23 14:19 10/06/23 16:13 10/06/23 16:20 Temperature 97.3 F L Pulse Rate 88 88 Pulse Rate [Pulse Oximeter] 105 H Respiratory Rate 18 Blood Pressure [Ri ght Upper Arm] 103/73 Pulse Oximetry 100 93 93 Oxygen Delivery Me thod Room Air 10/06/23 16:40 10/06/23 17:00 10/06/23 17:20 Temperature Pulse Rate 97 89 90 Pulse Rate [Pulse Oximeter] Respiratory Rate Blood Pressure [Ri ght Upper Arm] Pulse Oximetry 96 92 96 Oxygen Delivery Me thod 10/06/23 17:40 10/06/23 18:00 10/06/23 18:20 Temperature Pulse Rate 93 92 85 Pulse Rate [Pulse Oximeter] Respiratory Rate Blood Pressure [Ri ght Upper Arm] Pulse Oximetry 89 91 76 L Oxygen Delivery Me thod Documenting provider has reviewed patient's vital signs: yes Course Vital Signs Vital signs: Initial Vital Signs Temperature 97.3 F L 10/06/23 14:19 Temperature Source Temporal Artery Scan 10/06/23 14:19 Pulse Rate 105 H 10/06/23 14:19 Respiratory Rate 18 10/06/23 14:19 Blood Pressure 103/73 10/06/23 14:19 Blood Pressure Mean 83 10/06/23 14:19 Blood Pressure Position Sitting 10/06/23 14:19 Pulse Oximetry 100 10/06/23 14:19 Oxygen Delivery Method Room Air 10/06/23 14:19 Vital Signs Temperature 97.3 F L 10/06/23 14:19 Pulse Rate 105 H 10/06/23 14:19 Respiratory Rate 18 10/06/23 14:19 Blood Pressure 103/73 10/06/23 14:19 Pulse Oximetry 100 10/06/23 14:19 Oxygen Delivery Method Room Air 10/06/23 14:19 Temperature 97.3 F L 10/06/23 14:19 Pulse Rate 85 10/06/23 18:20 Respiratory Rate 18 10/06/23 14:19 Blood Pressure 103/73 10/06/23 14:19 Pulse Oximetry 76 L 10/06/23 18:20 Oxygen Delivery Method Room Air 10/06/23 14:19 Medications Administered Medications: Discontinued Medications Generic Name Dose Route Start Last Admin Trade Name Indigo PRN Reason Stop Dose Admin Lorazepam 2 mg 10/06/23 14:25 10/06/23 14:40 Lorazepam 1 Mg Tablet PO 10/06/23 14:26 2 mg ONCE ONE Administration Olanzapine 10 mg 10/06/23 14:25 10/06/23 14:40 Olanzapine 5 Mg Tab.Rapdis PO 10/06/23 14:26 10 mg ONCE ONE Administration Medical Decision Making MDM Narrative Medical decision making narrative: Mr. Smith clearly not interested in detox upon query. He is disruptive. Will offer him some Zyprexa and lorazepam and help him ?sleep it off?. Unless we can locate someone else, a responsible alliance party to come get him but this does not of sound to be the case this time. U tox confirms confirms benzodiazepines. Blood alcohol level was not obtained. Been observed for some time in the emergency department, sleeping in supporting his own airway. Has now alerted. Still disinterested in detox. Anticipating discharging home with responsible alliance party. Attempting to locate. Ultimately was discharged to friend/sober ride. Lab Data Lab results reviewed: Yes I reviewed the patient's lab results Labs: Lab Results 10/06/23 Range/Units 15:07 Urine Opiates Screen Negative (Negative) Ur Oxycodone Screen Negative (Negative) Urine Methadone Screen Negative (Negative) Ur Propoxyphene Screen Negative (Negative) Ur Barbiturates Screen Negative (Negative) U Tricyclic Antidepress Negative (Negative) Ur Phencyclidine Scrn Negative (Negative) Ur Amphetamines Screen Negative (Negative) U Methamphetamines Scrn Negative (Negative) U Benzodiazepines Scrn POSITIVE A (Negative) Urine Cocaine Screen Negative (Negative) U Marijuana (THC) Screen Negative (Negative) Ur Drug Screen Comment See Note Discharge Plan Discharge Clinical Impression: Alcoholic intoxication Patient Disposition: Home w/ Parent or Adult Condition: Improved Instructions: Alcohol Intoxication (ED) Additional Instructions: Please do what you can to stop drinking alcohol. This may include attending AA or similar. Return as needed. Activity Level: Activity as Tolerated Discharge Diet: Regular Prescriptions: No Action No Known Home Medications Follow Up/Referrals: Provider,Not a Local [Primary Care Provider] - Stand Alone Forms: [facility] Info Instructions
[2023-10-06] MEDS: LORazepam 1 MG TABLET 2 MG PO (14:40)
[2023-10-06] MEDS: OLANZapine 5 MG TAB.RAPDIS 10 MG PO (14:40)
--- OUTSIDE RECORDS SUMMARY | 2023-10-06 14:48 | XMS_ITS | Patient Health Record ---
Author Name Unknown Organization [facility] nter Address [address] [place] [address] Care Team Providers Care Yardage Estimator Name Role Phone Ryan Subramanian Unavailable [phone] Liam Craig Unavailable [phone] ALLERGIES No Known Allergies REASON FOR REFERRAL [...] intoxication, uncomplicated (F10.120) Active confirmed Alcohol intoxication ([id number]) VITAL SIGNS Heart Rate 88 /min 02/03/2023 Temperature 99.0 degrees Fahrenheit 02/03/2023 Respiratory Rate 20 /min 02/03/2023 Oximetry 99 % 02/03/2023 Height-cm 187.96 cm 02/03/2023 Blood pressure diastolic 90 mm Hg 02/03/2023 Weight-kg 80.74 kg 02/03/2023 Height 6'2 in 02/03/2023 Blood pressure systolic 137 mm Hg 02/03/2023 Weight 178 lbs 02/03/2023 BMI 22.85 kg/m2 02/03/2023 Encounters Encounter Location Date Provider Diagnosis [address] [address] 03/06/2023 Liam Craig [address] [address] 01/19/2023 Ryan Subramanian Depression determine d by examination F32.A and Insomnia, unspecified type G47.[address] [address] 02/03/2023 Ryanarie Subramanian Severe episode of recurrent [...] Date [employer] [place] [employer] [address] [address] [place], [place] [id number] Dixie Smith Self - patient is the insured MEDICAL (GENERAL) HISTORY Medical History History ICD Code Alcohol abuse with intoxication, uncompl icated F10.120 Trauma insomnia Surgical History Surgery Date(Month/Year) R leg fixation/Fx repair Hospitalization History Reason Date(Month/Year) inpatient psych 2013
[2023-10-06 17:11] LABS: Amphetamine Screen Urine Negative (Negative); Barbiturate Screen Urine Negative (Negative); Benzodiazepines Screen Urine POSITIVE (Negative); Cannabinoid Screen Urine Negative (Negative); Cocaine Screen Urine Negative (Negative); Methadone Screen Urine Negative (Negative); Methamphetamines Screen Urine Negative (Negative); Opiate Screen Urine Negative (Negative); Oxycodone Screen Urine Negative (Negative); Phencyclidine Screen Urine Negative (Negative); Tricyclic Antidepressant Urine Negative (Negative)
--- NOTE | 2023-10-06 19:00 | ED.NURSE ---
pt ripped off pulse oximeter sticker, pt refused to let us put a new one one.
--- NOTE | 2023-10-06 19:21 | ED.NURSE ---
pt woke up,telegraphic typewriter operator chief ask MD what plan was for pt. MD stated we needed to try and get the pt a ride home. pt has no known contact in chart. telegraphic typewriter operator chief asked pt if he could get pt phone and help him get a ride home. pt consented. telegraphic typewriter operator chief then brought pt his phone and asked pt who we should call to give him a ride home. telegraphic typewriter operator chief then asked pt if I could call his most recent contact. pt consented, when no one answered telegraphic typewriter operator chief asked if we could call second most recent contact, pt consented. when no one answered the second time, pt waved telegraphic typewriter operator chief away and so telegraphic typewriter operator chief informed pt that his phone would be placed back with his belongings. telegraphic typewriter operator chief locked phone back up in med room with the rest of pt stuff.
--- NOTE | 2023-10-06 21:45 | ED.NURSE ---
pt gave me contact of Jorge with phone number [phone] to contact for a sober ride. Jorge contacted and told health science writer that they would be to roll picker pt in about 45 min. Activities Assistant provided Jorge with directions to hospital.
--- NOTE | 2023-10-06 22:40 | ED.NURSE ---
pt discharged in care of sober ride Mr. Patel. pt belongings returned and Mr. Patel reviewed and signed discharge paperwork.
== END 2023-10-06 22:41 | disposition home or self-care (01) ==
PROVIDERS: Emergency Provider Family Medicine
DX: F10.129 Alcohol abuse with intoxication, unspecified (principal)
CPT/HCPCS: 80306; 99283; 99284; A9270